=== PATIENT | male | born 1985 | race Caucasian/White ===

== ENCOUNTER 2023-10-12 09:45 | Inpatient (IN) | payer OTHER ==
[2023-10-12] MEDS ORDERED: ACETAMINOPHEN 500 MG TAB ONE (10:20)
[2023-10-12] MEDS ORDERED: PIPERACIL/TAZO 3.375 GM VIAL IV ONE (10:21)
[2023-10-12] MEDS ORDERED: NA CHLORIDE 0.9% 250 ML ONE (10:22)
[2023-10-12 10:34] LABS: Absolute Lymphocytes (CBC) 0.8 K/uL (0.7-4.9); Lymphocytes % 4.2 % (15.3-44.8); MCV 72.1 fL (80-100); MPV 8.1 fL (7.6-11.3); Platelets 266 thou/uL (152-406); RBC Red Blood Cell Count 4.58 M/uL (4.33-5.43)
[2023-10-12 10:40] LABS: Protime INR 1.54
[2023-10-12 11:03] LABS: Albumin 2.4 g/dL (3.4-5.0); Bilirubin Total 1.1 mg/dL (0.2-1.0); Potassium 3.7 mEq/L (3.5-5.1); Protein, Total 7.9 g/dL (6.4-8.2)
[2023-10-12 11:09] LABS: Platelet Estimate ADEQ
[2023-10-12 11:10] LABS: Blood Morphology Comment NOTED (NOT SEEN); Dohle Bodies PRESENT
--- NOTE | 2023-10-12 11:17 | EDPHYS ---
Physician Documentation [facility] Name: Ray Shi Age: 38 yrs Sex: Male : 1985 Arrival Date: 10/12/2023 Time: 09:45 Bed 2 Private MD: ED Physician Agustin Grover HPI: 10/12 10:03 This 38 yrs old Male presents to ER via EMS with complaints of leg ec2 redness/swelling. 10:03 Patient with history of morbid obesity arrives today due to concern for left lower ec2 extremity redness. Patient with history of lymphedema, states that he has had some redness to the area. No fevers or chills, no nausea or vomiting. Patient with some shortness of breath.. Historical: - Allergies: 09:53 No Known Allergies; rs5 - PMHx: 09:53 lymphadenopathy; rs5 - PSHx: 09:53 None; rs5 - Immunization history:: Adult Immunizations unknown. - Social history:: Smoking status: unknown. ROS: 10:03 Constitutional: as per hpi ec2 Exam: 10:03 Constitutional: GEN: NAD, morbidly obese Head: atraumatic Eyes: EOMI Ears: External ec2 ears are normal. CV: tachycardia LUNGS: no respiratory distress ABD: non-distended SKIN: Left anterior tibia with weeping serous fluid, erythema noted, warmth noted. MSK: no evidence of trauma NEURO: moves all extremities equally Vital Signs: 09:50 BP 127 / 95; Pulse 120; Resp 19; Temp 98.6; Pulse Ox 99% on R/A; rs5 09:50 BP 141 / 82; Pulse 122; Resp 37 S; Temp 102.8(O); Pulse Ox 93% on R/A; rs5 09:58 Weight 275.4 kg; em1 10:01 BP 130 / 79; Pulse 120; Resp 33; Pulse Ox 98% on 2 lpm NC; rs5 11:02 BP 133 / 81; Pulse 125; Resp 34; Temp 100.1(O); Pulse Ox 99% on 2 lpm NC; rs5 12:10 BP 137 / 85; Pulse 113; Resp 30; Pulse Ox 99% on 2 lpm NC; rs5 13:15 BP 140 / 89; Pulse 110; Resp 31; Pulse Ox 98% on 2 lpm NC; rs5 MDM: 09:53 Patient medically screened. kb 10:03 ED course: Patient arrives today for evaluation of lower extremity redness and ec2 swelling. Examination remarkable for tachycardic individuals otherwise in no acute distress. Will obtain lab work, septic work-up and empirically treat with antibiotics. Currently considering cellulitis, lymphedema, volume overload.. 11:14 ED course: Initially to consider doing BiPAP given the patient's marked obesity and his ec2 volume status however patient is saturating well and appears to be at his baseline. Will defer BiPAP at this time however will reconsider in the future if symptoms worsen.. 11:15 ED course: CBC is remarkable for leukocytosis with a WBC of 19, does have hyponatremia ec2 with a sodium of 124, creatinine of 1.37, elevated lactic at 2.8 and BNP elevation at 1700. . 11:15 ED course: In total presentation consistent with sepsis secondary to cellulitis with ec2 associated renal dysfunction, lactic acidosis and hyponatremia. Will admit to the hospital for continued management. I discussed case with hospitalist, pending admission.. 11:15 Data reviewed: vital signs. ec2 10/12 10:03 Order name: Blood Culture Adult (2) ec2 10/12 10:03 Order name: CBC with Diff; Complete Time: ec2 10/12 10:03 Order name: CMP; Complete Time: ec2 10/12 10:03 Order name: Lactate w/ 2H reflex if indic.; Complete Time: ec2 10/12 10:03 Order name: Protime (+inr); Complete Time: ec2 10/12 10:03 Order name: Ptt, Activated; Complete Time: ec2 10/12 10:03 Order name: BNP; Complete Time: : ec2 10/12 11:10 Order name: Manual Differential; Complete Time: EDMS 10/12 12:12 Order name: Lactate w/ 2H reflex if indic. EDMS 10/12 12:12 Order name: Basic Metabolic Panel EDMS 10/12 12:12 Order name: Basic Metabolic Panel EDMS 10/12 12:12 Order name: Basic Metabolic Panel EDMN 10/12 12:12 Order name: Basic Metabolic Panel EDMN 10/12 12:12 Order name: Basic Metabolic Panel EDMS 10/12 12:12 Order name: Basic Metabolic Panel EDMS 10/12 12:12 Order name: CBC with Automated Diff EDMS 10/12 12:12 Order name: CBC with Automated Diff EDMS 10/12 12:12 Order name: CBC with Automated Diff EDMS 10/12 12:12 Order name: CBC with Automated Diff EDMS 10/12 12:12 Order name: CBC with Automated Diff EDMS 10/12 12:12 Order name: CBC with Automated Diff EDMS 10/12 12:12 Order name: Lipid Profile EDMS 10/12 12:12 Order name: Lipid Profile EDMS 10/12 12:12 Order name: Magnesium EDMS 10/12 12:12 Order name: Magnesium EDMS 10/12 12:12 Order name: Magnesium EDMS 10/12 12:12 Order name: Magnesium EDMS 10/12 12:12 Order name: Magnesium EDMS 10/12 12:12 Order name: Magnesium EDMS 10/12 12:12 Order name: Phosphorus EDMS 10/12 12:12 Order name: Phosphorus EDMS 10/12 12:12 Order name: Phosphorus EDMS 10/12 12:12 Order name: Phosphorus EDMS 10/12 12:12 Order name: Phosphorus EDMS 10/12 12:12 Order name: Phosphorus EDMS 10/12 13:50 Order name: Lactate Sepsis 2 HR Follow-up; Complete Time: 14:52 EDMS 10/12 10:03 Order name: Chest Single View XRAY; Complete Time: 11:55 ec2 10/12 10:03 Order name: EKG; Complete Time: 10:04 ec2 10/12 12:12 Order name: Physical Therapy Consult EDMS 10/12 10:03 Order name: Cardiac monitoring; Complete Time: 12:12 ec2 10/12 10:03 Order name: EKG - Nurse/Tech; Complete Time: 12:12 ec2 10/12 10:03 Order name: IV Saline Lock - Large Bore; Complete Time: 12:12 ec2 10/12 10:03 Order name: Labs collected and sent; Complete Time: 12:12 ec2 10/12 10:03 Order name: O2 Per Protocol; Complete Time: 12:11 ec2 10/12 10:03 Order name: O2 Sat Monitoring; Complete Time: 12:11 ec2 10/12 10:03 Order name: Vital Signs; Complete Time: 12:11 ec2 Administered Medications: 10:05 Drug: Acetaminophen PO 1000 mg PO once Route: PO; rs5 11:51 Follow up: Response: No adverse reaction; Pain is decreased rs5 10:30 Drug: Piperacillin-Tazobactam IVPB 3.375 grams IVPB once over 60 mins; (mix in NS 100 rs5 mL) Route: IVPB; Infused Over: 60 mins; Site: right antecubital; 10:45 Follow up: Response: No adverse reaction rs5 11:50 Follow up: IV Status: Completed infusion rs5 10:40 Drug: diphenhydrAMINE IVP 50 mg IVP once Route: IVP; Site: right antecubital; rs5 11:20 Follow up: Response: No adverse reaction rs5 11:01 Drug: Ibuprofen PO 800 mg PO once Route: PO; rs5 11:51 Follow up: Response: No adverse reaction; Pain is decreased rs5 11:02 Drug: hydrOXYzine PO 50 mg PO once Route: PO; rs5 12:01 Follow up: Response: No adverse reaction; Anxiety decreased rs5 11:40 Drug: NS 0.9% IV 1000 ml IV at 1 bolus Per protocol; 1000 mL bolus Route: IV; Rate: 1 rs5 bolus; Site: right antecubital; 11:52 Follow up: Response: No adverse reaction rs5 11:50 Drug: vancoMYCIN IVPB 2 grams IVPB at calculated rate once Route: IVPB; Rate: rs5 calculated rate; Site: right antecubital; 12:05 Follow up: Response: No adverse reaction rs5 12:57 Follow up: IV Status: Completed infusion rs5 Disposition Summary: 10/12/23 11:16 Hospitalization Ordered Notes: Hospitalization Status: Inpatient Admission ec2 Provider: Rodolfo Cavazos ec2 [facility] Condition: Stable ec2 Problem: an acute exacerbation ec2 Symptoms: have improved ec2 Bed/Room Type: Standard ec2 Room Assignment: 403(10/12/23 13:47) bd Diagnosis - Cellulitis of left lower limb ec2 - Sepsis, unspecified organism ec2 - Hypo-osmolality and hyponatremia ec2 Forms: - Medication Reconciliation Form ec2 - SBAR form ec2 - Leadership Thank You Letter ec2 Critical care time excluding procedures: 11:15 Critical care time: Bedside Care: 30 minutes, Consultation: 5 minutes. Total time: 35 ec2 minutes Signatures: Dispatcher [employer] Delores Maki, OZ FELIPE-Noemi No Ricky, RN RN rs5 Agustin Grover MD MD ec2 Corrections: (The following items were deleted from the chart) 10:05 10:03 Constitutional: GEN: NAD, morbidly obese Head: atraumatic Eyes: EOMI Ears: ec2 External ears are normal. CV: regular rate LUNGS: no respiratory distress ABD: non-distended SKIN: Left anterior tibia with weeping serous fluid, erythema noted, warmth noted. MSK: no evidence of trauma NEURO: moves all extremities equally ec2 12:12 10:03 Accucheck ordered. ec2 rs5 13:47 11:16 ec2 bd
--- NOTE | 2023-10-12 11:17 | ER ---
Nurse's Notes [facility] Name: Ray Shi Age: 38 yrs Sex: Male : 1985 Arrival Date: 10/12/2023 Time: 09:45 Bed 2 Private MD: Diagnosis: Cellulitis of left lower limb;Sepsis, unspecified organism;Hypo-osmolality and hyponatremia Presentation: 10/12 09:50 Chief complaint: EMS states: Pt has lymphadenopathy and he's been having pain to his rs5 left lower extremity. Coronavirus screen: At this time, the client does not indicate any symptoms associated with coronavirus-19. Ebola Screen: No symptoms or risks identified at this time. Initial Sepsis Screen: Does the patient meet any 2 criteria?. Initial Sepsis Screen: Does the patient meet any 2 criteria? HR > 90 bpm. Yes Does the patient have a suspected source of infection? No. Patient's initial sepsis screen is negative. Risk Assessment: Do you want to hurt yourself or someone else? Patient reports no desire to harm self or others. Onset of symptoms was October 12, 2023. 09:50 Method Of Arrival: EMS: [facility] rs5 09:50 Acuity: HOWARD 3 rs5 Historical: - Allergies: 09:53 No Known Allergies; rs5 - PMHx: 09:53 lymphadenopathy; rs5 - PSHx: 09:53 None; rs5 - Immunization history:: Adult Immunizations unknown. - Social history:: Smoking status: unknown. Screenin:50 [facility] ED Fall Risk Assessment (Adult) History of falling in the last 3 months, rs5 including since admission No falls in past 3 months (0 pts) Confusion or Disorientation No (0 pts) Intoxicated or Sedated No (0 pts) Impaired Gait Yes (1 pt) Mobility Assist Device Used Yes (1 pt) Altered Elimination No (0 pt) Score/Fall Risk Level 0 - 2 = Low Risk Oriented to surroundings, Maintained a safe environment, Educated pt \T\ family on fall prevention, incl call for assistance when getting out of bed, Assessed \T\ reinforced patient's understanding of fall precautions. Abuse screen: Denies threats or abuse. Nutritional screening: No deficits noted. Tuberculosis screening: No symptoms or risk factors identified. Assessment: 09:50 General: Appears distressed, uncomfortable, Behavior is cooperative, anxious. Pain: rs5 Complains of pain in left lower extremity Pain does not radiate. Pain currently is 8 out of 10 on a pain scale. Quality of pain is described as aching, Pain began 2-3 days ago. Is continuous. Neuro: Level of Consciousness is awake, alert, obeys commands, Oriented to person, place, time, situation. Cardiovascular: Heart tones S1 S2 present Rhythm is sinus tachycardia. Respiratory: Reports shortness of breath Airway is patent Respiratory effort is even, labored, Respiratory pattern is symmetrical, hyperventilation Breath sounds are clear bilaterally. GI: Abdomen is non-distended, obese, Bowel sounds present X 4 quads. Abd is soft and non tender X 4 quads. : No signs and/or symptoms were reported regarding the genitourinary system. EENT: No signs and/or symptoms were reported regarding the EENT system. Derm: Skin is intact, Skin is pink, warm \T\ dry. Musculoskeletal: Range of motion: limited in lower extremities bilat Swelling present in lower extremitites bilat Redness noted to lower extremities bilat. 09:52 Reassessment: Pt placed on 2L nasal cannula, o2 sat 99%%. rs5 11:42 Reassessment: notified ER MD of temp 102.8 , cool compress given to pt. iw 12:05 Pain: Complains of pain in left lower extremity Pain does not radiate. Pain currently rs5 is 4 out of 10 on a pain scale. Quality of pain is described as aching, Is continuous. 12:05 Cardiovascular: Denies chest pain, Rhythm is sinus tachycardia. Respiratory: rs5 Respiratory effort is even, labored, Respiratory pattern is symmetrical, hyperventilation. 13:10 Reassessment: Patient and/or family updated on plan of care and expected duration. Pain rs5 level reassessed. Patient is alert, oriented x 3, equal unlabored respirations, skin warm/dry/pink. Vital Signs: 09:50 BP 127 / 95; Pulse 120; Resp 19; Temp 98.6; Pulse Ox 99% on R/A; rs5 09:50 BP 141 / 82; Pulse 122; Resp 37 S; Temp 102.8(O); Pulse Ox 93% on R/A; rs5 09:58 Weight 275.4 kg; em1 10:01 BP 130 / 79; Pulse 120; Resp 33; Pulse Ox 98% on 2 lpm NC; rs5 11:02 BP 133 / 81; Pulse 125; Resp 34; Temp 100.1(O); Pulse Ox 99% on 2 lpm NC; rs5 12:10 BP 137 / 85; Pulse 113; Resp 30; Pulse Ox 99% on 2 lpm NC; rs5 13:15 BP 140 / 89; Pulse 110; Resp 31; Pulse Ox 98% on 2 lpm NC; rs5 ED Course: 09:49 Patient arrived in ED. bd 09:50 Arun Sam, RN is Primary Nurse. rs5 09:50 Patient has correct armband on for positive identification. Bed in low position. Call rs5 light in reach. Side rails up X2. 09:52 Delores Smiley FNP-C is [facility]. ec2 09:53 Triage completed. rs5 09:53 Agustin Grover MD is Attending Physician. kb 10:13 ordered bariatric bed confirmation .................[id number].. bd 11:00 Notified ED physician of a critical lab result(s). lactate 2.8. ll1 11:16 Rodolfo Cavazos is Hospitalizing Provider. ec2 11:29 Chest Single View XRAY In Process Unspecified. EDMS 15:20 No provider procedures requiring assistance completed. Patient admitted, IV remains in rs5 place. Administered Medications: 10:05 Drug: Acetaminophen PO 1000 mg PO once Route: PO; rs5 11:51 Follow up: Response: No adverse reaction; Pain is decreased rs5 10:30 Drug: Piperacillin-Tazobactam IVPB 3.375 grams IVPB once over 60 mins; (mix in NS 100 rs5 mL) Route: IVPB; Infused Over: 60 mins; Site: right antecubital; 10:45 Follow up: Response: No adverse reaction rs5 11:50 Follow up: IV Status: Completed infusion rs5 10:40 Drug: diphenhydrAMINE IVP 50 mg IVP once Route: IVP; Site: right antecubital; rs5 11:20 Follow up: Response: No adverse reaction rs5 11:01 Drug: Ibuprofen PO 800 mg PO once Route: PO; rs5 11:51 Follow up: Response: No adverse reaction; Pain is decreased rs5 11:02 Drug: hydrOXYzine PO 50 mg PO once Route: PO; rs5 12:01 Follow up: Response: No adverse reaction; Anxiety decreased rs5 11:40 Drug: NS 0.9% IV 1000 ml IV at 1 bolus Per protocol; 1000 mL bolus Route: IV; Rate: 1 rs5 bolus; Site: right antecubital; 11:52 Follow up: Response: No adverse reaction rs5 11:50 Drug: vancoMYCIN IVPB 2 grams IVPB at calculated rate once Route: IVPB; Rate: rs5 calculated rate; Site: right antecubital; 12:05 Follow up: Response: No adverse reaction rs5 12:57 Follow up: IV Status: Completed infusion rs5 Medication: 15:20 VIS not applicable for this client. rs5 Outcome: 11:16 Decision to Hospitalize by Provider. ec2 15:20 Admitted to Med/surg accompanied by nurse, rs5 15:20 Condition: stable 15:20 Discharge instructions given to patient, family, 15:25 Patient left the ED. mb9 Signatures: Dispatcher [employer] EDDelores Sue, DESTINEE-Anna EQUIPMENT OPERATOR/LABORER/SUPERVISOR-CkNoemi Kent Irene, Cedrick Mohamud RN em1 Priyanka Burkett RN RN ll1 Savita Gallo RN RN mb9 Arun Sam RN RN rs5 Agustin Grover MD MD ec2 Corrections: (The following items were deleted from the chart) 09:54 09:50 Chief complaint: EMS states: Pt has lymphadenopathy and he's having pain to his rs5 lower extremities bilat rs5 10:02 09:50 Initial Sepsis Screen: Does the patient meet any 2 criteria? No. Patient's rs5 initial sepsis screen is negative. Does the patient have a suspected source of infection? No. Patient's initial sepsis screen is negative. rs5 10:02 09:50 BP 127 / 95; Pulse 92bpm; Resp 19bpm; Pulse Ox 99% RA; Temp 98.6F; rs5 rs5 14:18 09:50 Cardiovascular: Heart tones S1 S2 present Rhythm is regular rs5 rs5 14:19 11:42 BP 141 / 82; Pulse 122bpm; Resp 26bpm; Spontaneous; Temp 102.8F Oral; iw rs5 14:20 09:50 Respiratory: Airway is patent Respiratory effort is even, labored, Respiratory rs5 pattern is symmetrical, hyperventilation Breath sounds are clear bilaterally. rs5 14:21 09:52 Reassessment: Pt placed on 2L nasal cannula for o2 sat of 93%. rs5 rs5 14:22 11:42 BP 141 / 82; Pulse 122bpm; Resp 33bpm; Spontaneous; Temp 102.8F Oral; rs5 rs5 14:22 14:18 BP 130 / 79; Pulse 120bpm; Resp 33bpm; Pulse Ox 98% 2 lpm Nasal Cannula; rs5 rs5 14:23 09:50 BP 141 / 82; Pulse 122bpm; Resp 33bpm; Spontaneous; Pulse Ox 93% RA; Temp 102.8F rs5 Oral; rs5 14:25 13:02 Reassessment: Temp 100.2 notified ER , cool compress provided per pt request. rs5 rs5 19:29 15:20 IV discontinued, intact, bleeding controlled, No redness/swelling at site. rs5 Pressure dressing applied, rs5
[2023-10-12] MEDS ORDERED: hydrOXYzine HCL 25 MG TAB ONE (11:18)
[2023-10-12] MEDS ORDERED: DIPHENHYDRAMINE 50 MG/ML VIAL ONE (11:36)
--- NOTE | 2023-10-12 11:49 | RAD REPORT ---
EXAM DESCRIPTION: Tati Single View10/12/2023 11:27 am CLINICAL HISTORY: SOB COMPARISON: No comparisons TECHNIQUE: Portable AP view of the chest. FINDINGS: The lungs are clear. Decreased penetration somewhat limits evaluation. No pneumothorax or effusion. The cardiomediastinal contours are unremarkable. IMPRESSION: No acute cardiopulmonary process.
[2023-10-12] MEDS ORDERED: PIPER TAZO 3.375 GM in NA CHLORIDE 0.9% 100 ML IV SCH (12:00)
[2023-10-12] MEDS ORDERED: NICOTINE 14 MG/PAT TD PRN (12:11)
--- NOTE | 2023-10-12 12:24 | P.HP ---
Certification for Inpatient Patient admitted to: Inpatient With expected LOS: >2 Midnights Patient will require the following post-hospital care: None Practitioner: I am a practitioner with admitting privileges, knowledge of patient current condition, hospital course, and medical plan of care. Services: Services provided to patient in accordance with Admission requirements found in Title 42 Section 412.3 of the Code of Federal Regulations Patient History Date of Service: 10/12/23 Reason for admission: sepsis 2/2 cellulitis of left lower extremity History of Present Illness: Ray Wells is a 38-year-old male with past medical history lymphadenopathy, GERD, smoking abuse, morbid obesity who presents to the ED with complaints of increased lower extremity edema overnight. Patient reports on Tuesday not feeling well and assuming it was bad pizza he ate. He continued to not feel well the last few days, was able to drink but not eat. This morning his lower extremities increased in size and redness. Redness was noted earlier this week but has increased since Tuesday. Ray's mother usually cares for his legs using Neosporin and wrapping with an Marty bandage daily. Initial vital BP 127 / 95; Pulse 120; Resp 19; Temp 98.6; Pulse Ox 99% on R/A. Chest x-ray reports "The lungs are clear. Decreased penetration somewhat limits evaluation. No pneumothorax or effusion. The cardiomediastinal contours are unremarkable". Significant labs WBC 19, lactic acid 2.8, sodium 129, potassium 3.7, serum glucose 102, BNP 1669. On examination left anterior tibia is weeping with serous fluid, erythema, edema, and warmth noted. He is SOB today, which is not usual for him. Ray will be admitted to hospitalist service for further evaluation and treatment of sepsis secondary to cellulitis of the left lower extremity. Allergies No Known Allergies Allergy (Unverified 10/12/23 12:39) Home Medications: NK [No Home Meds] 10/12/23 Review of Systems General: Weakness, Malaise Eyes: Unremarkable ENT: Unremarkable Respiratory: Shortness of Breath Cardiovascular: Unremarkable Gastrointestinal: Unremarkable Genitourinary: Unremarkable Musculoskeletal: Other (edema BLE) Physical Examination - Physical Exam General: Alert, In no apparent distress, Oriented x3, Moderate distress HEENT: Atraumatic, Normocephalic, PERRLA Neck: Supple, 2+ carotid pulse no bruit, JVD not distended Respiratory: Clear to auscultation bilaterally Musculoskeletal: Erythema (left anterior tibia), Warmth (left anterior tibia) Integumentary: Skin breakdown (BLE), Tenderness/swelling (BLE), Erythema (BLE) Neurological: Normal speech, Normal tone - Studies Laboratory Data (last 24 hrs) 10/12/23 10/12/23 10/12/23 10:22 10:22 10:22 WBC 19.00 H Hgb 10.5 L Hct 33.0 L Plt Count 266 PT 16.9 H INR 1.54 APTT 35.9 Sodium 124 L Potassium 3.7 BUN 17 Creatinine 1.37 H Glucose 102 Total Bilirubin 1.1 H AST 64 H ALT 27 Alkaline Phosphatase 57 Assessment and Plan - Plan Assessment and Plan Sepsis secondary to cellulitis of the left lower extremity in a patient with h/o lymphadenopathy Anasarca Zosyn given in ED, will continue Blood cultures taken in the ED, results pending Lasix BID, monitor Creatinine Lactic acid 2.8, repeat pending, WBC 19 strict I and O daily weight Consult wound care Hyponatremia Na 124, BNP 1669 Likely d/t anasarca Lasix will monitor in AM labs MARTINA BUN/Creatinine 17/1.37 monitor Morbid obesity d/t sedentary lifestyle and calorie surplus PT consulted H/o GERD PRN Tums Full code DVT ppx: heparin LOS 3-4 days - Advance Directives Does patient have a Living Will: No Does patient have a Durable POA for Healthcare: No
[2023-10-12] MEDS: FUROSEMIDE 40 MG/4 ML VIAL IV SCH ×2 (14:00→16:43)
[2023-10-12] MEDS: PIPER TAZO 3.375 GM in NA CHLORIDE 0.9% 100 ML IV SCH (16:42)
[2023-10-12] MEDS: HEPARIN 5000 UNIT/ML 1 ML VIAL SQ SCH (16:42)
[2023-10-12] MEDS ORDERED: FUROSEMIDE 40 MG/4 ML VIAL IV SCH (17:00)
[2023-10-13] MEDS: PIPER TAZO 3.375 GM in NA CHLORIDE 0.9% 100 ML IV SCH ×2 (02:00→09:12)
[2023-10-13] MEDS: HEPARIN 5000 UNIT/ML 1 ML VIAL SQ SCH ×3 (02:00→16:44)
[2023-10-13 04:20] LABS: Absolute Lymphocytes (CBC) 0.6 K/uL (0.7-4.9); Hematocrit 30.2 % (39.6-49.0); Lymphocytes % 3.3 % (15.3-44.8); MPV 8.9 fL (7.6-11.3); Platelets 225 thou/uL (152-406); RBC Red Blood Cell Count 4.14 M/uL (4.33-5.43)
[2023-10-13 04:23] LABS: Magnesium 2.2 mg/dL (1.6-2.4); Phosphorus 3.8 mg/dL (2.5-4.9); Potassium 3.8 mEq/L (3.5-5.1)
[2023-10-13] MEDS ORDERED: MORPHINE 4 MG/ML SYR IV ONE (05:36)
[2023-10-13] MEDS ORDERED: POTASSIUM 25 MEQ EFFERV TAB PO ONE (09:00)
[2023-10-13] MEDS: FUROSEMIDE 40 MG/4 ML VIAL IV SCH (09:13)
[2023-10-13] MEDS ORDERED: MAGNESIUM SULFATE 1 gm IVPB 1 GM/100 ML BAG IV ONE (09:21)
--- NOTE | 2023-10-13 09:23 | P.PN ---
Subjective Date of Service: 10/13/23 Chief Complaint: sepsis 2/2 cellulitis of left lower extremity Subjective: No new changes, Working w/ PT HPI 10/12: Ray Shi is a 38-year-old male with past medical history lymphadenopathy, GERD, smoking abuse, morbid obesity who presents to the ED with complaints of increased lower extremity edema overnight. Patient reports on Tuesday not feeling well and assuming it was bad pizza he ate. He continued to not feel well the last few days, was able to drink but not eat. This morning his lower extremities increased in size and redness. Redness was noted earlier this week but has increased since Tuesday. Ray's mother usually cares for his legs using Neosporin and wrapping with an Marty bandage daily. Initial vital BP 127 / 95; Pulse 120; Resp 19; Temp 98.6; Pulse Ox 99% on R/A. Chest x-ray reports "The lungs are clear. Decreased penetration somewhat limits evaluation. No pneumothorax or effusion. The cardiomediastinal contours are unremarkable". Significant labs WBC 19, lactic acid 2.8, sodium 129, potassium 3.7, serum glucose 102, BNP 1669. On examination left anterior tibia is weeping with serous fluid, erythema, edema, and warmth noted. He is SOB today, which is not usual for him. Ray will be admitted to hospitalist service for further evaluation and treatment of sepsis secondary to cellulitis of the left lower extremity. 10/13: Ray is AAOx3, He is remains SOB with expiratory wheezes, on 3 LNC. Left leg dressing shows drainage. PT ordered, cefepime started, Lasix gtt with albumin, wound care consulted. Physical Examination - Vital Signs Temperature: 96.9 F Blood Pressure: 138/65 Pulse: 101 Respirations: 16 Pulse Ox (%): 94 - Studies Laboratory Data (last 24 hrs) 10/12/23 10/12/23 10/12/23 10:22 10:22 10:22 WBC 19.00 H Hgb 10.5 L Hct 33.0 L Plt Count 266 PT 16.9 H INR 1.54 APTT 35.9 Sodium 124 L Potassium 3.7 BUN 17 Creatinine 1.37 H Glucose 102 Total Bilirubin 1.1 H AST 64 H ALT 27 Alkaline Phosphatase 57 Assessment And Plan - Plan Physical Exam General: Alert, In no apparent distress, Oriented x3, Moderate distress HEENT: Atraumatic, Normocephalic, PERRLA Neck: Supple, 2+ carotid pulse no bruit, JVD not distended Respiratory: expiratory wheezing, Musculoskeletal: Erythema (left anterior tibia), Warmth (left anterior tibia), left leg dressing drainage present Integumentary: Skin breakdown (BLE), Tenderness/swelling (BLE), Erythema (BLE) Neurological: Normal speech, Normal tone Problems Sepsis secondary to cellulitis of the left lower extremity in a patient with h/o lymphadenopathy Anasarca Bacteremia Hyponatremia MARTINA Morbid obesity d/t sedentary lifestyle and calorie surplus Plan Sepsis secondary to cellulitis of the left lower extremity in a patient with h/o lymphadenopathy Anasarca Bacteremia Zosyn (10/12) and cefepime started (10/13) Blood cultures taken in the ED, Positive in all four Lasix gtt with albumin Lactic acid 2.8, repeat 2.2, WBC 17.20 strict I and O daily weight Consult wound care Bilateral upper lobe wheezing Duonebs Q6h Hyponatremia Initial labs: Na 124, BNP 1669 Na 132 Likely d/t anasarca Lasix gtt will monitor in AM labs MARTINA BUN/Creatinine 20/1.33- improved monitor Morbid obesity d/t sedentary lifestyle and calorie surplus PT consulted H/o GERD PRN Tums Full code DVT ppx: heparin LOS 3-4 days Discharge Plan: Home Plan to discharge in: 72 Hours Time Spent Managing PTS Care (In Minutes): 35
--- NOTE | 2023-10-13 10:45 | EKG ---
Test Date: 2023-10-12 Test Time: 10:32:33 Supervisor Compounding And Finishing: ROSALEE MEASUREMENT RESULTS: Intervals: Rate: 125 RI: 120 QRSD: 104 QT: 324 QTc: 467 [place]: P: 24 RI: 120 QRS: 55 T: 41 INTERPRETIVE STATEMENTS: Sinus tachycardia Otherwise normal ECG Compared to ECG 10/12/2023 10:32:06 Fusion complex(es) no longer present Electronically Signed On 10-13-23 10:42:20 JUTE BAG CUTTING MACHINE OPERATOR by Ciro Gillis
--- NOTE | 2023-10-13 10:45 | EKG ---
Test Date: 2023-10-12 Test Time: 10:32:06 Conductor Sleeping Car: ROSALEE MEASUREMENT RESULTS: Intervals: Rate: 125 MD: 126 QRSD: 94 QT: 334 QTc: 482 [place]ia: P: 34 MD: 126 QRS: 60 T: 52 INTERPRETIVE STATEMENTS: Sinus tachycardia with fusion complexes Otherwise normal ECG No previous ECG available for comparison Electronically Signed On 10-13-23 10:42:22 TRUST ADMINISTRATOR by Ciro Gillis
[2023-10-13] MEDS ORDERED: CEFEPIME 2 GM in NA CHLORIDE 0.9% 100 ML IV SCH (12:00)
[2023-10-13] MEDS: ALBUMIN HUMAN 25% 12.5 GM, FUROSEMIDE 100 MG in NA CHLORIDE 0.9% 40 ML IV SCH ×3 (12:20→21:56)
[2023-10-13] MEDS: CEFEPIME 2 GM in NA CHLORIDE 0.9% 100 ML IV SCH (16:43)
[2023-10-13] MEDS: VANCOMYCIN 2 GM in NA CHLORIDE 0.9% 500 ML IVPB SCH (16:44)
[2023-10-13] MEDS ORDERED: FUROSEMIDE 100 MG in NA CHLORIDE 0.9% 90 ML IV SCH (19:00)
[2023-10-13] MEDS: ALBUTEROL 2.5 MG/3 ML NEB SOL NEB SCH (20:30)
[2023-10-14] MEDS ORDERED: NA CHLORIDE 0.9% 100 ML ONE (00:53)
[2023-10-14] MEDS: HEPARIN 5000 UNIT/ML 1 ML VIAL SQ SCH ×3 (00:55→16:25)
[2023-10-14] MEDS: CEFEPIME 2 GM in NA CHLORIDE 0.9% 100 ML IV SCH ×2 (00:55→09:50)
[2023-10-14 01:18] LABS: Absolute Lymphocytes (CBC) 1.1 K/uL (0.7-4.9); Hematocrit 27.7 % (39.6-49.0); Lymphocytes % 5.2 % (15.3-44.8); MCV 71.8 fL (80-100); MPV 8.5 fL (7.6-11.3); Platelets 221 thou/uL (152-406); RBC Red Blood Cell Count 3.86 M/uL (4.33-5.43)
[2023-10-14] MEDS: ALBUMIN HUMAN 25% 12.5 GM, FUROSEMIDE 100 MG in NA CHLORIDE 0.9% 40 ML IV SCH ×5 (02:01→23:16)
[2023-10-14] MEDS: ALBUTEROL 2.5 MG/3 ML NEB SOL NEB SCH ×4 (02:20→20:53)
[2023-10-14 02:30] LABS: Potassium 3.2 mEq/L (3.5-5.1)
[2023-10-14 02:32] LABS: Magnesium 2.1; Phosphorus 2.5 mg/dL (2.5-4.9)
[2023-10-14] MEDS ORDERED: POTASSIUM CL SA 10 MEQ TAB PO ONE (09:00)
[2023-10-14] MEDS: POTASS/SODIUM PHOSPHATE 1 PKT POWD.PACK PO SCH ×2 (09:43→09:47)
[2023-10-14] MEDS: VANCOMYCIN 2 GM in NA CHLORIDE 0.9% 500 ML IVPB SCH (11:04)
--- NOTE | 2023-10-14 13:35 | P.CNS ---
Date of Consult: 10/14/23 Reason for Consult: MARTINA Requesting Physician: guzman silveira Chief Complaint: sepsis 2/2 cellulitis of left lower extremity History of Present Illness: 38M w/ PMHx of morbid obesity, chronic cig smoker, chronic BLE edema, & GERD, who p/w increased BLE edema & erythema, admitted for sepsis 2/2 LLE cellulitis. He is referred to Nephrology for MARTINA. SC 1.4 on adm, improved to 1.1 today. He is c/o SOB. He reports he stopped smoking a few days ago. He is on lasix gtt & receiving abx. He also has mod hyponatremia. Allergies No Known Allergies Allergy (Unverified 10/12/23 12:39) Home Medications: NK [No Home Meds] 10/12/23 - Past Medical/Surgical History Diabetic: No -: left foot sx - Social History Smoking Status: Unknown if ever smoked Alcohol use: No CD- Drugs: No Caffeine use: No Place of Residence: Home Review of Systems General: Weakness Eyes: Unremarkable ENT: Unremarkable Respiratory: Shortness of Breath, SOB with Excertion Cardiovascular: Unremarkable Gastrointestinal: Unremarkable Genitourinary: Unremarkable Musculoskeletal: Pedal edema, Other (LLE erythema) Integumentary: Other (LLE erythema) Neurological: Unremarkable Lymphatics: Unremarkable Physical Examination Temp Pulse Resp BP Pulse Ox 98.0 F 104 H 20 130/55 L 90 L 10/14/23 12:00 10/14/23 12:00 10/14/23 12:00 10/14/23 12:00 10/14/23 12:00 General: Other (Appears as his stated age) HEENT: Atraumatic, Normocephalic Neck: Supple Respiratory: Other (symmetric chest expansion) Cardiovascular: No rubs, No murmurs Gastrointestinal: Soft and benign, No rebound Musculoskeletal: No clubbing, Swelling Integumentary: Erythema (LLE) Neurological: Normal speech, Normal tone Urinary: Other (no bladder distention) External genitalia: Deferred Rectal: Deferred Conclusions/Impression: # MARTINA 2/2 sepsis/ATN SCr 1.4 on adm, improved to 1.1 today Urinalysi +pyuria, no proteinuria, no hematuria +Mild proteinuria 1.0g on random UPCR CPK not sig elevated, no rhabdo Girard po fluid intake Cont lasix gtt # Sepsis 2/2 LLE cellulitis +Strep bacteremia IV abx F/u cultures BLE wound care & multilayer compression therapy # Chronic BLE edema likely 2/2 obesity-related R-sided cardiac + pulmo issues + BLE lymphatic/venous stasis + dependent edema, aggravated by hypolabuminemia BNP sig elevated, f/u TTE BLE multilayer compression Lasix gtt as above # Acute respi failure O2 suppl prn Unable to get chest CT done d/t body habitus BNP sig elevated, f/u TTE Lasix gtt as above F/u ABG # Hyponatremia 2/2 high ADH state from dyspnea & BLE discomfort + renal dysfxn Tolvaptan po today Lasix gtt as above Dc fluid restriction Solid food intake tid Avoid salt tabs, avoid Na-containing IVF K repletion prn to keep serum K at 4.0 or higher Avoid hypoMg # Vitamin D deficiency Start cholecalciferol 5000 international units by mouth daily # Secondary hyperparathyroidism D3 repletion as above # Anemia Monitor CBC
[2023-10-14] MEDS ORDERED: TOLVAPTAN 15 MG TABLET PO ONE ×2 (15:00)
[2023-10-14] MEDS: CEFTRIAXONE 2,000 MG in NA CHLORIDE 0.9% 50 ML IV SCH (15:40)
--- NOTE | 2023-10-14 17:10 | P.PN ---
Subjective Date of Service: 10/14/23 Chief Complaint: sepsis 2/2 cellulitis of left lower extremity Patient is complaining of shortness of breath. He is maintained on 2 L oxygen by nasal canula. He states that he has been evaluated for obstructive sleep apnea. Physical Examination - Vital Signs Temperature: 99.1 F Blood Pressure: 147/66 Pulse: 109 Respirations: 20 Pulse Ox (%): 94 Assessment And Plan - Plan Physical Exam General: Alert, In no apparent distress, Oriented x3. Morbidly obese HEENT: Oxygen by nasal cannula Neck: Supple, 2+ carotid pulse no bruit, JVD not distended Respiratory: expiratory wheezing, diminished breath sounds bilaterally Musculoskeletal: Erythema and tender legs, worse on the left, bilateral lower extremity lymphedema-entire legs. Integumentary: Skin breakdown (BLE), bilateral lower extremity venous stasis dermatitis and ulcers. Neurological: Normal speech, Normal tone Diagnosis Sepsis secondary to cellulitis of the left lower extremity in a patient with h/o lymphadenopathy Anasarca Bacteremia Hyponatremia MARTINA Morbid obesity d/t sedentary lifestyle and calorie surplus Plan Sepsis secondary to cellulitis of the left lower extremity Anasarca Strep bacteremia Scale down IV antibiotics to IV Rocephin 4 out of 4 bottles growing gram-positive cocci(Strept). Final culture is pending. Repeat blood cultures today. Bilateral lower extremity lymphedema/bilateral lower extremity edema/obstructive sleep apnea Bilateral venous stasis dermatitis and venous stasis ulcer Acute respiratory failure with hypoxia Continue Lasix gtt with albumin Nephrology input appreciated. Patient was started on tolvaptan given hyponatremia by nephrology Monitor intake and output Daily weight as possible Continue local wound care. Supplemental oxygen as needed Trial of BiPAP during sleep. Bilateral upper lobe wheezing/acute respiratory failure with hypoxia Duonebs Q6h Supplemental oxygen as needed Hyponatremia Hypervolemic hyponatremia Nephrology input appreciated Patient is Lasix gtt Patient started on tolvaptan given anasarca with hyponatremia. Monitor BMP. MARTINA Resolved. Continue to monitor renal function Morbid obesity d/t sedentary lifestyle and calorie surplus PT consulted. Activity as tolerated H/o GERD PRN Tums Full code DVT ppx: heparin Discharge Plan: Home
[2023-10-14 17:19] LABS: UR PROTEIN 27.7 mg/dL (<11.9); Urine Protein/Creatinine Ratio 0.99 ratio (<0.15)
[2023-10-14 17:33] LABS: Specific Gravity 1.008 (1.005-1.030); Urine Bacteria <20 /HPF (<20); Urine Bilirubin NEGATIVE (Negative); Urine Blood Negative (Negative); Urine Clarity Turbid (Clear); Urine Color Light-Yellow (Yellow); Urine Crystals Unidentified Few /HPF (None Seen); Urine Glucose NEGATIVE (Negative); Urine Mucus Slight /HPF (None Seen); Urine Protein NEGATIVE (Negative); Urine RBC <5 /HPF (None Seen); Urine Urobilinogen Normal (Normal)
[2023-10-14] MEDS: ACETAMINOPHEN 325 MG TABLET PO PRN (23:17)
[2023-10-15] MEDS: HEPARIN 5000 UNIT/ML 1 ML VIAL SQ SCH ×3 (00:48→16:22)
[2023-10-15] MEDS: ALBUTEROL 2.5 MG/3 ML NEB SOL NEB SCH ×4 (02:18→20:24)
[2023-10-15 03:24] LABS: Absolute Lymphocytes (CBC) 1.3 K/uL (0.7-4.9); Hematocrit 27.9 % (39.6-49.0); Lymphocytes % 6.2 % (15.3-44.8); MPV 8.4 fL (7.6-11.3); Platelets 265 thou/uL (152-406); RBC Red Blood Cell Count 3.82 M/uL (4.33-5.43)
[2023-10-15] MEDS: ACETAMINOPHEN 325 MG TABLET PO PRN (03:31)
[2023-10-15] MEDS: ALBUMIN HUMAN 25% 12.5 GM, FUROSEMIDE 100 MG in NA CHLORIDE 0.9% 40 ML IV SCH ×4 (03:31→15:26)
[2023-10-15 03:53] LABS: Phosphorus 3.3 mg/dL (2.5-4.9); Potassium 2.7 mEq/L (3.5-5.1)
[2023-10-15] MEDS ORDERED: NA CHLORIDE 0.9% 500 ML ONE (08:21)
[2023-10-15] MEDS ORDERED: TOLVAPTAN 15 MG TABLET PO ONE (09:00)
[2023-10-15] MEDS ORDERED: KCL 20 MEQ/100 mL IVPB 20 MEQ/100 ML BAG IV SCH (09:00)
[2023-10-15] MEDS: VITAMIN D 5,000 UNIT CAP PO SCH (09:14)
[2023-10-15] MEDS: KCL 20 MEQ/100 mL IVPB 20 MEQ/100 ML BAG IV SCH ×2 (11:56→14:41)
[2023-10-15 12:08] LABS: Blood O2 Saturation 89.9 % (92-98.5)
--- NOTE | 2023-10-15 15:37 | P.PN ---
Subjective Date of Service: 10/15/23 Chief Complaint: sepsis 2/2 cellulitis of left lower extremity 38M w/ PMHx of morbid obesity, chronic cig smoker, chronic BLE edema, & GERD, who p/w increased BLE edema & erythema, admitted for sepsis 2/2 LLE cellulitis. He is referred to Nephrology for MARTINA. SC 1.4 on adm, improved to 1.1 today. Today high UO will reduce lasix drip rate advised to reduce fluid intake Physical exam General: Awake, NAD , obese HEENT: Atraumatic, Normocephalic Neck: Supple, no elevated JVD Respiratory: CTAB Cardiovascular: No rubs, No murmurs Gastrointestinal: Soft and benign, Non-distended Ext : edema A/P # MARTINA 2/2 sepsis/ATN resolved SCr 1.4 on adm, Urinalysi +pyuria, no proteinuria, no hematuria +Mild proteinuria 1.0g on random UPCR Cont lasix gtt # Sepsis 2/2 LLE cellulitis +Strep bacteremia IV abx F/u cultures BLE wound care & multilayer compression therapy # Chronic BLE edema likely 2/2 obesity-related R-sided cardiac + BLE lymphatic/venous stasis + hypolabuminemia BLE multilayer compression Lasix gtt will rduce rate # Acute respi failure O2 suppl prn Unable to get chest CT done d/t body habitus Lasix gtt as above # hyprvolemic Hyponatremia S.p tolvaptan ont lasix reduce fluid intake Lasix gtt as above K repletion prn to keep serum K at 4.0 or higher # Vitamin D deficiency Start cholecalciferol 5000 international units by mouth daily # Anemia Monitor CBC Physical Examination - Vital Signs Temperature: 98.9 F Blood Pressure: 113/69 Pulse: 91 Respirations: 16 Pulse Ox (%): 90 - Studies Microbiology Data (last 24 hrs): 10/12/23 10:22 Blood - Blood Aerobic Blood Culture - Final Streptococcus Pyogenes 10/12/23 10:22 Blood - Blood Blood Culture Gram Stain - Final 10/12/23 10:22 Blood - Blood Anaerobic Blood Culture - Final Streptococcus Pyogenes 10/12/23 10:22 Blood - Blood Gram Stain - Final 10/12/23 10:50 Blood - Blood Aerobic Blood Culture - Final Streptococcus Pyogenes 10/12/23 10:50 Blood - Blood Blood Culture Gram Stain - Final 10/12/23 10:50 Blood - Blood Anaerobic Blood Culture - Final Streptococcus Pyogenes 10/12/23 10:50 Blood - Blood Gram Stain - Final
[2023-10-15] MEDS: CEFTRIAXONE 2,000 MG in NA CHLORIDE 0.9% 50 ML IV SCH (16:22)
--- NOTE | 2023-10-15 17:58 | P.PN ---
Subjective Date of Service: 10/15/23 Chief Complaint: sepsis 2/2 cellulitis of left lower extremity Patient is complaining of shortness of breath. He also reports constipation. He has been on high flow oxygen since last night. Lower extremity edema is improving. Physical Examination - Vital Signs Temperature: 97.6 F Blood Pressure: 126/68 Pulse: 98 Respirations: 14 Pulse Ox (%): 93 - Studies Microbiology Data (last 24 hrs): 10/12/23 10:22 Blood - Blood Aerobic Blood Culture - Final Streptococcus Pyogenes 10/12/23 10:22 Blood - Blood Blood Culture Gram Stain - Final 10/12/23 10:22 Blood - Blood Anaerobic Blood Culture - Final Streptococcus Pyogenes 10/12/23 10:22 Blood - Blood Gram Stain - Final 10/12/23 10:50 Blood - Blood Aerobic Blood Culture - Final Streptococcus Pyogenes 10/12/23 10:50 Blood - Blood Blood Culture Gram Stain - Final 10/12/23 10:50 Blood - Blood Anaerobic Blood Culture - Final Streptococcus Pyogenes 10/12/23 10:50 Blood - Blood Gram Stain - Final Assessment And Plan - Plan Physical Exam General: Alert, In no apparent distress, Oriented x3. Morbidly obese HEENT: High flow oxygen. Neck: Supple, 2+ carotid pulse no bruit, JVD not distended Respiratory: expiratory wheezing, diminished breath sounds bilaterally Musculoskeletal: Erythema and tender legs, worse on the left, bilateral lower extremity lymphedema-entire legs. Integumentary: Skin breakdown (BLE), bilateral lower extremity venous stasis dermatitis and ulcers. Neurological: Normal speech, Normal tone Diagnosis Sepsis secondary to cellulitis of the left lower extremity in a patient with h/o lymphadenopathy Anasarca Bacteremia Hyponatremia MARTINA Morbid obesity d/t sedentary lifestyle and calorie surplus Plan Sepsis secondary to cellulitis of the left lower extremity Anasarca Strept pyogenes bacteremia Continue IV Rocephin Add IV clindamycin to decrease erythema/erythromelalgia. Repeat blood culture shows no growth Bilateral lower extremity lymphedema/bilateral lower extremity edema/obstructive sleep apnea Bilateral venous stasis dermatitis and venous stasis ulcer Acute respiratory failure with hypoxia Continue Lasix gtt with albumin Nephrology is following. Patient was started on tolvaptan given hyponatremia by nephrology Monitor intake and output Daily weight as possible Continue local wound care. Supplemental oxygen as needed Trial of BiPAP during sleep. Bilateral upper lobe wheezing/acute respiratory failure with hypoxia Duonebs Q6h Supplemental oxygen as needed Hyponatremia Hypervolemic hyponatremia Nephrology is following Patient is on Lasix gtt Patient started on tolvaptan given anasarca with hyponatremia. Monitor BMP. MARTINA Resolved. Continue to monitor renal function Morbid obesity d/t sedentary lifestyle and calorie surplus Continue PT Bed mobility encouraged Activity as tolerated H/o GERD PRN Tums Functional constipation Laxatives and stool softeners. Full code DVT ppx: heparin Discharge Plan: Home
[2023-10-15] MEDS: CLINDAMYCIN INJ 600 MG in NA CHLORIDE 0.9% 50 ML IV SCH (18:00)
[2023-10-15] MEDS ORDERED: CLINDAMYCIN 600MG/D5W 50 ML IV ONE (18:41)
[2023-10-15] MEDS ORDERED: MAGNESIUM CITRATE 300 ML BOT PO SCH (19:00)
[2023-10-16] MEDS: CLINDAMYCIN INJ 600 MG in NA CHLORIDE 0.9% 50 ML IV SCH ×4
[2023-10-16] MEDS: ALBUTEROL 2.5 MG/3 ML NEB SOL NEB SCH ×4 (02:14→20:00)
[2023-10-16] MEDS: ALBUMIN HUMAN 25% 12.5 GM, FUROSEMIDE 100 MG in NA CHLORIDE 0.9% 40 ML IV SCH (02:17)
[2023-10-16] MEDS: HEPARIN 5000 UNIT/ML 1 ML VIAL SQ SCH ×3 (02:18→16:13)
[2023-10-16] MEDS ORDERED: CLINDAMYCIN 600MG/D5W 100 ML IV ONE (02:23)
[2023-10-16] MEDS ORDERED: CLINDAMYCIN 600MG/D5W 50 ML IV SCH (03:00)
[2023-10-16] MEDS: POLYETHYL GLY 3350 17 GM/DOSE PO SCH (09:00)
[2023-10-16] MEDS: CLINDAMYCIN 600MG/D5W 50 ML IV SCH ×3 (09:21→21:08)
[2023-10-16] MEDS: VITAMIN D 5,000 UNIT CAP PO SCH (09:21)
[2023-10-16 10:33] LABS: Absolute Lymphocytes (CBC) 1.5 K/uL (0.7-4.9); Hematocrit 29.5 % (39.6-49.0); Lymphocytes % 8.2 % (15.3-44.8); MCV 73.7 fL (80-100); MPV 8.5 fL (7.6-11.3); Platelets 289 thou/uL (152-406); RBC Red Blood Cell Count 4.01 M/uL (4.33-5.43)
--- NOTE | 2023-10-16 10:36 | P.PN ---
Subjective Date of Service: 10/16/23 Chief Complaint: sepsis 2/2 cellulitis of left lower extremity 38M w/ PMHx of morbid obesity, chronic cig smoker, chronic BLE edema, & GERD, who p/w increased BLE edema & erythema, admitted for sepsis 2/2 LLE cellulitis. He is referred to Nephrology for MARTINA. SC 1.4 on adm, improved to 1.1 today. Today high UO will change lasix to IVO and add aldctone Aggressive potassium replacement advised to reduce fluid intake Physical exam General: Awake, NAD , obese HEENT: Atraumatic, Normocephalic Neck: Supple, no elevated JVD Respiratory: CTAB Cardiovascular: No rubs, No murmurs Gastrointestinal: Soft and benign, Non-distended Ext : edema A/P # MARTINA 2/2 sepsis/ATN resolved SCr 1.4 on adm, Urinalysi +pyuria, no proteinuria, no hematuria +Mild proteinuria 1.0g on random UPCR Cont lasix # Sepsis 2/2 LLE cellulitis +Strep bacteremia IV abx F/u cultures BLE wound care & multilayer compression therapy # Chronic BLE edema likely 2/2 obesity-related R-sided cardiac + BLE lymphatic/venous stasis + hypolabuminemia BLE multilayer compression will change lasix to IVP and add aldctone # Acute respi failure O2 suppl prn Unable to get chest CT done d/t body habitus Lasix gtt as above #Hypokalemia due to disuretics will add aldactone replace as needed Monitor Mg level # hyprvolemic Hyponatremia S.p tolvaptan x1 ont lasix reduce fluid intake Lasix gtt as above K repletion prn to keep serum K at 4.0 or higher # Vitamin D deficiency Start cholecalciferol 5000 international units by mouth daily # Anemia Monitor CBC Physical Examination - Vital Signs Temperature: 99.8 F Blood Pressure: 138/62 Pulse: 95 Respirations: 16 Pulse Ox (%): 90 - Studies Microbiology Data (last 24 hrs): 10/12/23 10:22 Blood - Blood Aerobic Blood Culture - Final Streptococcus Pyogenes 10/12/23 10:22 Blood - Blood Blood Culture Gram Stain - Final 10/12/23 10:22 Blood - Blood Anaerobic Blood Culture - Final Streptococcus Pyogenes 10/12/23 10:22 Blood - Blood Gram Stain - Final 10/12/23 10:50 Blood - Blood Aerobic Blood Culture - Final Streptococcus Pyogenes 10/12/23 10:50 Blood - Blood Blood Culture Gram Stain - Final 10/12/23 10:50 Blood - Blood Anaerobic Blood Culture - Final Streptococcus Pyogenes 10/12/23 10:50 Blood - Blood Gram Stain - Final
[2023-10-16 10:55] LABS: Magnesium 2.3 mg/dL (1.6-2.4)
[2023-10-16] MEDS ORDERED: ALBUMIN HUMAN 25% 12.5 GM, FUROSEMIDE 100 MG in NA CHLORIDE 0.9% 40 ML IV SCH (12:00)
[2023-10-16] MEDS ORDERED: POTASSIUM CL SA 10 MEQ TAB PO ONE (14:00)
[2023-10-16] MEDS: POTASS/SODIUM PHOSPHATE 1 PKT POWD.PACK PO SCH (14:16)
[2023-10-16] MEDS: FUROSEMIDE 40 MG/4 ML VIAL IV SCH ×2 (14:16→21:09)
[2023-10-16] MEDS: CEFTRIAXONE 2,000 MG in NA CHLORIDE 0.9% 50 ML IV SCH (16:13)
[2023-10-16] MEDS: SPIRONOLACTONE 25 MG TABLET PO SCH (21:08)
[2023-10-17] MEDS: HEPARIN 5000 UNIT/ML 1 ML VIAL SQ SCH ×3 (01:59→18:29)
[2023-10-17] MEDS: ALBUTEROL 2.5 MG/3 ML NEB SOL NEB SCH ×4 (02:00→19:57)
[2023-10-17] MEDS: CLINDAMYCIN 600MG/D5W 50 ML IV SCH ×4 (02:00→21:57)
[2023-10-17 04:13] LABS: Absolute Lymphocytes (CBC) 2.1 K/uL (0.7-4.9); Hematocrit 29.7 % (39.6-49.0); Lymphocytes % 9.8 % (15.3-44.8); MCV 73.6 fL (80-100); MPV 8.4 fL (7.6-11.3); Platelets 419 thou/uL (152-406); RBC Red Blood Cell Count 4.03 M/uL (4.33-5.43)
[2023-10-17 05:09] LABS: Magnesium 2.4 mg/dL (1.6-2.4); Phosphorus 3.1 mg/dL (2.5-4.9); Potassium 3.4 mEq/L (3.5-5.1)
[2023-10-17 05:59] LABS: Blood Morphology Comment NOT SEEN (NOT SEEN); Platelet Estimate ADEQ
[2023-10-17] MEDS ORDERED: POTASSIUM CL SA 10 MEQ TAB PO ONE (09:00)
[2023-10-17] MEDS: POLYETHYL GLY 3350 17 GM/DOSE PO SCH ×2 (09:00→09:15)
[2023-10-17] MEDS: SPIRONOLACTONE 25 MG TABLET PO SCH ×2 (09:14→21:53)
[2023-10-17] MEDS: VITAMIN D 5,000 UNIT CAP PO SCH (09:14)
[2023-10-17] MEDS: ACETAMINOPHEN 325 MG TABLET PO PRN ×2 (09:14→21:53)
[2023-10-17] MEDS: FUROSEMIDE 40 MG/4 ML VIAL IV SCH ×3 (09:16→21:56)
[2023-10-17] MEDS: CEFTRIAXONE 2,000 MG in NA CHLORIDE 0.9% 50 ML IV SCH (15:02)
--- NOTE | 2023-10-17 19:56 | P.PN ---
Subjective Date of Service: 10/16/23 Chief Complaint: sepsis 2/2 cellulitis of left lower extremity No major changes from yesterday. Good urine output Patient currently tolerating oxygen by nasal cannula. Lower extremity edema is improving. Physical Examination - Vital Signs Temperature: 97.1 F Blood Pressure: 127/70 Pulse: 91 Respirations: 16 Pulse Ox (%): 94 Assessment And Plan - Plan Physical Exam General: Alert, In no apparent distress, Oriented x3. Morbidly obese HEENT: High flow oxygen. Neck: Supple, 2+ carotid pulse no bruit, JVD not distended Respiratory: expiratory wheezing, diminished breath sounds bilaterally Musculoskeletal: Erythema and bilateral lower extremity lymphedema/edema improving. Integumentary: Skin breakdown (BLE), bilateral lower extremity venous stasis dermatitis and ulcers. Neurological: Normal speech, Normal tone Diagnosis Sepsis secondary to cellulitis of the left lower extremity in a patient with h/o lymphadenopathy Anasarca Bacteremia Hyponatremia MARTINA Morbid obesity d/t sedentary lifestyle and calorie surplus Plan Sepsis secondary to cellulitis of the left lower extremity Anasarca Strept pyogenes bacteremia/sepsis Continue IV Rocephin and IV clindamycin Repeat blood culture shows no growth Monitor CBC to follow leukocytosis. Bilateral lower extremity lymphedema/bilateral lower extremity edema/obstructive sleep apnea Bilateral venous stasis dermatitis and venous stasis ulcer Acute respiratory failure with hypoxia Continue Lasix gtt with albumin Nephrology is following and adjusting Lasix and albumin dose. Patient was started on tolvaptan given hyponatremia by nephrology Monitor intake and output Daily weight as possible Continue local wound care. Supplemental oxygen as needed Trial of BiPAP during sleep. Bilateral upper lobe wheezing/acute respiratory failure with hypoxia Duonebs Q6h Supplemental oxygen as needed Hyponatremia Hypervolemic hyponatremia Nephrology is following Patient is on Lasix gtt Patient started on tolvaptan given anasarca with hyponatremia. Hyponatremia significantly improved. Continue to monitor BMP. MARTINA Resolved. Continue to monitor renal function Morbid obesity d/t sedentary lifestyle and calorie surplus Continue PT Bed mobility encouraged Activity as tolerated H/o GERD PRN Tums Functional constipation Laxatives and stool softeners. Full code DVT ppx: heparin Discharge Plan: Home
--- NOTE | 2023-10-17 19:58 | P.PN ---
Subjective Date of Service: 10/17/23 Chief Complaint: sepsis 2/2 cellulitis of left lower extremity Patient continues to diurese significantly. Patient currently tolerating oxygen by nasal cannula. Physical Examination - Vital Signs Temperature: 97.1 F Blood Pressure: 127/70 Pulse: 91 Respirations: 16 Pulse Ox (%): 94 Assessment And Plan - Plan Physical Exam General: Alert, In no apparent distress, Oriented x3. HEENT: Oxygen by nasal cannula. Respiratory: expiratory wheezing, diminished breath sounds bilaterally Musculoskeletal: Erythema and bilateral lower extremity lymphedema/edema improving. Integumentary: Skin breakdown (BLE), bilateral lower extremity venous stasis dermatitis and ulcers. Diagnosis Sepsis secondary to cellulitis of the left lower extremity in a patient with h/o lymphadenopathy Anasarca Bacteremia Hyponatremia MARTINA Morbid obesity d/t sedentary lifestyle and calorie surplus Plan Sepsis secondary to cellulitis of the left lower extremity Anasarca Strept pyogenes bacteremia/sepsis Continue IV Rocephin and IV clindamycin Repeat blood culture shows no growth Monitor CBC to follow leukocytosis. Bilateral lower extremity lymphedema/bilateral lower extremity edema/obstructive sleep apnea Bilateral venous stasis dermatitis and venous stasis ulcer Acute respiratory failure with hypoxia Continue Lasix gtt with albumin Nephrology is following and adjusting Lasix and albumin dose. Patient completed multiple dose of tolvaptan. Aldactone added by nephrology. Low-salt diet and fluid restriction advised. Daily weight as possible Continue local wound care. Supplemental oxygen as needed Trial of BiPAP during sleep. Increase activity as tolerated. Bilateral upper lobe wheezing/acute respiratory failure with hypoxia Duonebs Q6h Supplemental oxygen as needed Hyponatremia Hypervolemic hyponatremia Nephrology is following Patient is on Lasix gtt Patient started on tolvaptan given anasarca with hyponatremia. Hyponatremia significantly improved. Continue to monitor BMP. MARTINA Resolved. Continue to monitor renal function Morbid obesity d/t sedentary lifestyle and calorie surplus He was able to sit at the edge of the bed today with PT. Continue PT Activity as tolerated H/o GERD PRN Tums Functional constipation Laxatives and stool softeners. Full code DVT ppx: heparin Discharge Plan: Home
[2023-10-17] MEDS ORDERED: HYDROCODONE/APAP 5/325 MG TAB PO PRN (19:59)
[2023-10-17 22:38] LABS: Arterial Blood Carboxyhemoglob 1.6 % (0-1.5); Blood Gas Oxyhemoglobin 91.6 % (94-97)
--- NOTE | 2023-10-17 23:51 | PN ---
Date of Progress Note: 10/17/2023 Chief Complaint: Acute kidney injury. Subjective: The patient is admitted to the hospital because of sepsis, cellulitis of the left lower extremity. The patient is a 38-year-old man with morbid obesity, chronic cigarette smoker, chronic b ilateral edema, anasarca, GERD. The patient presented to the hospital because of left lower extremit y cellulitis and sepsis. Nephrology consultation was requested for acute kidney injury. Serum creat inine level was up to 1.4. Patient remains fluid overloaded. He was found to have hyponatremia. He is treated with antibiotics and Lasix. Review of Systems: Denies complaints. Physical Examination: Lungs: Coarse breath sound bilaterally. Heart: S1, S2. Abdomen: Obese, soft. Extremities: Anasarca, erythema, left lower extremity. Impression And Plan: 1.Acute kidney injury secondary to sepsis and acute tubular necrosis. Serum creatinine gradually im proving. Urinalysis was positive for pyuria, but negative for proteinuria, negative for hematuria. Mild to moderate proteinuria present. UPCR is 1.0 g according to random specimen. CPK is not signif icantly elevated. There is no evidence of rhabdomyolysis. Patient will continue Lasix drip for anas arca. 2.Sepsis secondary to left lower cellulitis and streptococcal bacteremia. Continue IV antibiotics a nd monitor culture, bilateral lower extremity wound care, multilayer compression therapy as per Prima ry Team. 3.Chronic bilateral edema secondary to obesity. Right-sided cardiac catheterization will be conside red for this patient when he is stable. Continue Lasix drip and continue bilateral multilayer compre ssion. Monitor BNP. Monitor fluid bolus. 4.Acute respiratory failure. BNP is elevated. Follow up TTE. Continue Lasix drip. Follow up ABG. 5.Hyponatremia secondary to high ADH state from dyspnea, bilateral lower extremity discomfort and re nal dysfunction. Patient received tolvaptan. Monitor electrolytes closely and continue tolvaptan ac cording to lab results. Discontinue fluid restriction when patient is on tolvaptan. Continue Lasix drip. 6.Hypokalemia and hypomagnesemia. Continue potassium and magnesium replacement. EB/MODL Voice ID: [id number] Report ID: [id number]
--- NOTE | 2023-10-18 01:47 | P.PN ---
Date of Service: 10/17/23 Nurse and RT called to assess the patient as patient has been sleeping all day and wakes up in after repeated calls. Patient is seen and assessed. Patient is waking up only to repeated calls, answering questions with yes or no. Bilateral air entry is good on auscultation, not in any acute distress at this. Patient's mom concerned about his excessive sleep, vital signs stable ABG pH 7.37, PCO2 78, PO2 79, base excess 15, bicarb 41.3 oand O2 sat 97!. SPO2 93% on nasal cannula oxygen. Discussed the case with Dr. Alicea, put the pat ient on BiPAP after explaining to the patient and to the mother. Ordered thyroid studies, cortisol level, ammonia level. Hold all the suggestions and the pain medications at this time. <Su Ann - Last Filed: 10/18/23 01:40> Agree with above findings. Last sentence was supposed to mention sedation; I did suggest that patient hold all sedatives and pain medication. On review of the chart, patient was also found to have a very low anion gap. This is most likely related to severe hypoalbuminemia. Have asked nurses to repeat labs in the morning. Could be related to other etiologies which need to be further evaluated. Nephrology is seeing the patient. Pt with proteinuria. Patient may need protein electrophoresis as well. May need further urine studies. Patient is requiring BiPAP support. Patient's pH is normal with a chronic respiratory acidosis with metabolic compensation. Patient also with iron deficiency. Patient will need further evaluation. <Lori Alicea - Last Filed: 10/19/23 00:34>
[2023-10-18] MEDS: ALBUTEROL 2.5 MG/3 ML NEB SOL NEB SCH ×5 (01:57→19:00)
[2023-10-18] MEDS: CLINDAMYCIN 600MG/D5W 50 ML IV SCH ×4 (02:41→21:33)
[2023-10-18] MEDS: HEPARIN 5000 UNIT/ML 1 ML VIAL SQ SCH ×3 (02:45→16:27)
[2023-10-18 03:43] LABS: Hematocrit 29.9 % (39.6-49.0); Lymphocytes % 10.7 % (15.3-44.8); MCV 74.1 fL (80-100); Platelets 426 thou/uL (152-406); RBC Red Blood Cell Count 4.03 M/uL (4.33-5.43)
[2023-10-18 03:44] LABS: Protime INR 1.19
[2023-10-18 04:10] LABS: Albumin 1.8 g/dL (3.4-5.0); Bilirubin Direct 0.3 mg/dL (0-0.2); Bilirubin Total 0.5 mg/dL (0.2-1.0); Magnesium 2.4 mg/dL (1.6-2.4); Potassium 3.9 mEq/L (3.5-5.1); Protein, Total 7.6 g/dL (6.4-8.2); Thyroid Stimulating Hormone 3.48 uIU/mL (0.358-3.740)
[2023-10-18 05:27] LABS: Blood O2 Saturation 94.7 % (92-98.5)
[2023-10-18 05:28] LABS: Arterial Blood Carboxyhemoglob 1.8 % (0-1.5)
--- NOTE | 2023-10-18 07:58 | RAD REPORT ---
EXAM DESCRIPTION: RAD - Chest Single View - 10/18/2023 4:40 am CLINICAL HISTORY: O2 use, exp wheeze, lethargy Chest pain. COMPARISON: Chest Single View dated 10/12/2023 FINDINGS: Portable technique limits examination quality. Mild bilateral pulmonary opacities are present suggesting mild pulmonary edema. The heart is mildly p rominent. No displaced fractures.
[2023-10-18] MEDS: POLYETHYL GLY 3350 17 GM/DOSE PO SCH (09:00)
[2023-10-18] MEDS: SPIRONOLACTONE 25 MG TABLET PO SCH ×2 (09:53→21:34)
[2023-10-18] MEDS: FUROSEMIDE 40 MG/4 ML VIAL IV SCH (09:54)
[2023-10-18] MEDS: VITAMIN D 5,000 UNIT CAP PO SCH (09:54)
--- NOTE | 2023-10-18 11:26 | ECHO ---
HEIGHT: 5 ft 9 in WEIGHT: 559 lb 0 oz DATE OF STUDY: 10/17/[address]: Rodolfo Cavazos MD 2-DIMENSIONAL: YES M.MODE: YES DOPPLER: YES COLOR FLOW: YES TDS: YES PORTABLE: YES DEFINITY: BUBBLE STUDY: DIAGNOSIS: ANARSACA CARDIAC HISTORY: CATHERIZATION: NO SURGERY: NO PROSTHETIC VALVE: NO PACEMAKER: NO MEASUREMENTS (cm) DIASTOLIC (NORMALS) SYSTOLIC (NORMALS) IVSd 1.3 (0.6-1.2) LA Diam 4.1 (1.9-4.0) LVEF 65% LVIDd 4.7 (3.5-5.7) LVIDs 3.0 (2.0-3.5) %FS 36% LVPWd 1.5 (0.6-1.2) Ao Diam 3.0 (2.0-3.7) 2 DIMENSIONAL ASSESSMENT: RIGHT ATRIUM: LEFT ATRIUM: RIGHT VENTRICLE: LEFT VENTRICLE: TRICUSPID VALVE: MITRAL VALVE: PULMONIC VALVE: AORTIC VALVE: PERICARDIAL EFFUSION: AORTIC ROOT: LEFT VENTRICULAR WALL MOTION: DOPPLER/COLOR FLOW: COMMENTS: 1. VERY POOR STUDY WITH POOR WINDOWS 2. OVERALL LEFT VENTRICULAR EJECTION FRACTION APPEARS NORMAL. RECOMMEND CONTRAST ECHOCARDIOGRAM TECHNOLOGIST: MARIAM NIÑO/ MICKY WEINER
--- NOTE | 2023-10-18 12:12 | P.PN ---
Date of Service: 10/18/23 Subjective: reports never had sleep study / no CPAP at home reports waking up gasping for air at home occasionally, +doesn't feel as rested after sleeping, +lethargic feels swelling in legs slowly improving placed on BiPAP overnight; remains on BiPAP for now afebrile ROS: 10 point ROS as noted above, otherwise negative Physical Exam: GEN: Alert, oriented, NAD HEENT: Normal conjunctiva, sclera anicteric CV: Regular rate and rhythm, 2+ bilateral lower extremity edema , L>R Pulm: Nonlabored respirations on BiPAP, diminished at bases b/l, +expiratory wheezes ABD: Soft, nontender, nondistended Integumentary: Skin breakdown (BLE), bilateral lower extremity venous stasis dermatitis and ulcers with dressing in place Neuro: Normal speech, normal affect vitals reviewed Problem List: Sepsis secondary to LLE cellulitis Streptococcus pyogenes bacteremia Anasarca Bilateral lower extremity lymphedema Bilateral venous stasis dermatitis and venous stasis ulcer Acute respiratory failure with hypoxia and hypercapnia suspected undiagnosed Obstructive sleep apnea Hyponatremia MARTINA, resolved Morbid obesity h/o GERD Functional constipation Sepsis secondary to LLE cellulitis Streptococcus pyogenes bacteremia Anasarca Bilateral lower extremity lymphedema Bilateral venous stasis dermatitis and venous stasis ulcer blood cx (10/12): Streptococcus Pyogenes blood cx (10/14): NGTD Continue IV Rocephin / clindamycin (10/14-) afebrile, leukocytosis improving Nephrology is following continue spironolactone PO BID Patient completed multiple dose of tolvaptan. Low-salt diet, fluid restriction, daily weights advised. Continue local wound care. Acute respiratory failure with hypoxia / hypercapnia suspected Obstructive sleep apnea reports never had sleep study / no CPAP at home sleeping habits consistent with obstructive sleep apnea Pulm consulted 10/18 Started diamox Duonebs Q6h Placed on BiPAP overnight repeat ABG 10/18 with some improvement Increase activity as tolerated. Hyponatremia MARTINA, resolved Hypervolemic hyponatremia Nephrology is following previously on Lasix gtt; continue spironolactone Patient started on tolvaptan given anasarca with hyponatremia. Hyponatremia significantly improved. Continue to monitor BMP. Continue to monitor renal function Morbid obesity Continue PT - able to sit at the edge of the bed yesterday Activity as tolerated h/o GERD PRN Tums Functional constipation continue Laxatives and stool softeners VTE: heparin sq Code: Full Dispo: Home, 1-2 days Pending further improvement
--- NOTE | 2023-10-18 12:37 | P.CNS ---
Date of Consult: 10/18/23 Reason for Consult: Respiratory failure Chief Complaint: Respiratory failure on BiPAP morbid obesity History of Present Illness: Patient is 38 years of age history of morbid obesity lymphedema currently unresponsive on a BiPAP machine since he was admitted with hypoxic hypercapnic respiratory failure not have a CPAP at home also has positive blood cultures Allergies No Known Allergies Allergy (Unverified 10/12/23 12:39) Home Medications: NK [No Home Meds] 10/12/23 - Past Medical/Surgical History Diabetic: No -: left foot sx - Social History Smoking Status: Unknown if ever smoked Alcohol use: No CD- Drugs: No Caffeine use: No Place of Residence: Home Review of Systems is unable to be obtained Physical Examination Temp Pulse Resp BP Pulse Ox 96.6 F L 85 18 140/77 93 10/18/23 04:00 10/18/23 07:50 10/18/23 04:00 10/18/23 04:00 10/18/23 07:50 General: Unresponsive, Obese, Other Respiratory: Clear to auscultation bilaterally, Expiratory wheezes Cardiovascular: Regular rate/rhythm, Edema Gastrointestinal: Normal bowel sounds, Soft and benign - Problems (1) Respiratory failure Current Visit: Yes Status: Acute Plan: Patient is 38 years of age morbid obesity admitted with hypoxic hypercapnic respiratory failure patient is bacteremic elevated bicarbonate patient has cardiomegaly patient is on Lasix add Diamox evaluate for noninvasive ventilator patient has normal renal function avoid Lasix elevate his bicarbonate patient has chronic respiratory failure and will benefit from home noninvasive venti lator to prevent readmissions probably also need a backup rate Qualifiers: Chronicity: chronic (2) Morbid (severe) obesity with alveolar hypoventilation Current Visit: Yes Status: Acute Plan: PT has morbid obesity with alvolar hypoventilation, Chronic hypercapnea with compensatory high bicarbonate
[2023-10-18] MEDS: ACETAZOLAMIDE 500 MG IV IV SCH ×2 (13:24→21:45)
[2023-10-18] MEDS ORDERED: WATER FOR INJ,STERILE 10 ML ONE ×2 (13:36→20:08)
[2023-10-18] MEDS: SOD FERRIC GLUC COMPLX/SUCROSE 125 MG in NA CHLORIDE 0.9% 100 ML IV SCH (15:22)
[2023-10-18] MEDS: ACETAMINOPHEN 325 MG TABLET PO PRN ×2 (15:23→21:33)
[2023-10-18] MEDS: CEFTRIAXONE 2,000 MG in NA CHLORIDE 0.9% 50 ML IV SCH (16:26)
--- NOTE | 2023-10-18 23:19 | PN ---
Date of Progress Note: 10/18/2023 Chief Complaint: Acute kidney injury. Subjective: The patient is admitted to the hospital because of sepsis and cellulitis of the left lower extremity. The patient is a 38-year-old man with morbid obesity, chronic cigarette smoker, chronic bilateral lymphedema, anasarca, GERD. The patient presented to the hospital because of left lower extremity cellulitis and sepsis. The patient remained fluid overloaded. He was found to have hyponatremia. He is treated with antibiotics and Lasix. Sodium level has improved gradually. Review of Systems: Denies chest pain, palpitation. Physical Examination: Lungs: Coarse breath sounds bilaterally. Heart: S1, S2. Abdomen: Soft, obese. Extremities: Erythema. Dressing in place. Severe edema present. Impression And Plan: 1. Acute kidney injury secondary to sepsis, patient developed prerenal azotemia and nonoliguric acute tubular necrosis. Serum creatinine level gradually was improving, although the patient remains fluid overloaded and IV Bumex is started. 2. The patient has proteinuria, which goes along with morbid obesity with possible focal segmental glomerulosclerosis. The patient has history of moderate proteinuria. Continue to monitor. At this point, the patient is not a candidate for KRYSTYNA inhibitor. 3. Sepsis secondary to left lower cellulitis and streptococcal bacteremia. Continue IV antibiotics. Monitor blood culture and monitor electrolytes. The patient will continue bilateral lower extremity wound care and multilayer compression therapy as was recommended by Primary team. 4. Chronic bilateral edema secondary to obesity. Right-sided cardiac catheterization is scheduled. The patient is awaiting workup. 5. Acute respiratory failure. BNP is elevated. Follow up on TTE. Continue diuretics. 6. Hypokalemia and hypomagnesemia. Magnesium replacement as needed. Monitor potassium level. EB/MODL Voice ID: [id number] Report ID: [id number] MALIK
[2023-10-19] MEDS: ALBUTEROL 2.5 MG/3 ML NEB SOL NEB SCH ×2 (02:02→08:11)
[2023-10-19] MEDS: CLINDAMYCIN 600MG/D5W 50 ML IV SCH ×2 (03:59→09:06)
[2023-10-19] MEDS: ACETAMINOPHEN 325 MG TABLET PO PRN (04:11)
[2023-10-19] MEDS: ALBUMIN HUMAN 25% 50 ML IV SCH ×2 (05:19→17:20)
[2023-10-19 06:58] LABS: Hematocrit 30.1 % (39.6-49.0); Lymphocytes % 12.6 % (15.3-44.8); MPV 7.9 fL (7.6-11.3); Platelets 456 thou/uL (152-406); RBC Red Blood Cell Count 4.02 M/uL (4.33-5.43)
[2023-10-19 07:13] LABS: Magnesium 2.7 mg/dL (1.6-2.4); Potassium 4.2 mEq/L (3.5-5.1)
[2023-10-19] MEDS: BUMETANIDE 1 MG/4 ML VIAL IV SCH ×3 (08:00→20:05)
[2023-10-19] MEDS: POLYETHYL GLY 3350 17 GM/DOSE PO SCH (08:57)
[2023-10-19] MEDS: SPIRONOLACTONE 25 MG TABLET PO SCH ×2 (09:06→20:04)
[2023-10-19] MEDS: ACETAZOLAMIDE 500 MG IV IV SCH (09:06)
[2023-10-19] MEDS: VITAMIN D 5,000 UNIT CAP PO SCH (09:08)
[2023-10-19] MEDS ORDERED: WATER FOR INJ,STERILE 10 ML ONE (09:14)
[2023-10-19] MEDS: SOD FERRIC GLUC COMPLX/SUCROSE 125 MG in NA CHLORIDE 0.9% 100 ML IV SCH (09:55)
[2023-10-19 10:03] LABS: Blood Morphology Comment NOT SEEN (NOT SEEN); Platelet Estimate ADEQ
--- NOTE | 2023-10-19 12:19 | P.PN ---
Subjective Date of Service: 10/19/23 Chief Complaint: Respiratory failure on BiPAP morbid obesity Subjective: Improving (Patient is improving tolerating BiPAP mother at the bedside and has refused to use CPAP in the past never been diagnosed with sleep apnea) Review of Systems is unable to be obtained Physical Examination - Vital Signs Temperature: 96.4 F Blood Pressure: 142/73 Pulse: 77 Respirations: 20 Pulse Ox (%): 96 - Physical Exam General: Alert, Cooperative Respiratory: Clear to auscultation bilaterally Cardiovascular: Regular rate/rhythm, Edema Assessment And Plan - Current Problems (Diagnosis) (1) Morbid (severe) obesity with alveolar hypoventilation Current Visit: Yes Status: Acute Plan: PT has morbid obesity with alvolar hypoventilation, Chronic hypercapnea with compensatory high bicarbonate/she did not tolerate CPAP before however he does tolerate the BiPAP machine Labs reviewed blood gases reviewed changed to p.o. Diamox continue with spironolactone and Lasix DC clindamycin invasive ventilator ordered vital signs are stable discharge planning as White count is normal.
--- NOTE | 2023-10-19 15:19 | P.CNS ---
Date of Consult: 10/19/23 Reason for Consult: strep bacteremia, BLE cellulitis Chief Complaint: Respiratory failure on BiPAP morbid obesity History of Present Illness: Patient is a 38 yo male with a past medical history of morbid obesity, lymphedema, GERD who presented to the ED with complaints of increased bilateral lower extremity edema and erythema. Patient was admitted for BLE cellulitis and was also found to have strep bacteremia. Infectious disease was consulted. Allergies No Known Allergies Allergy (Unverified 10/12/23 12:39) Home medications list reviewed: Yes Home Medications: NK [No Home Meds] 10/12/23 - Past Medical/Surgical History Diabetic: No -: left foot sx - Social History Smoking Status: Current every day smoker, Unknown if ever smoked Smoking therapy provided: Yes Alcohol use: No CD- Drugs: No Caffeine use: No Place of Residence: Home Review of Systems 10-point ROS is otherwise unremarkable General: Weakness Cardiovascular: Edema Gastrointestinal: Other (decreased appetite) Physical Examination Temp Pulse Resp BP Pulse Ox 96.4 F L 77 20 142/73 H 96 10/19/23 12:19 10/19/23 12:19 10/19/23 12:19 10/19/23 12:19 10/19/23 12:19 General: Alert, In no apparent distress, Oriented x3, Obese HEENT: Atraumatic, Normocephalic Neck: Supple Respiratory: Normal air movement, Diminished Cardiovascular: Other (edema/lymphedema BLE) Gastrointestinal: Normal bowel sounds, No tenderness Integumentary: Other (BLE erythema, edema and warmth- dressing clean dry and intact) Neurological: Normal speech, Normal tone, Normal affect Laboratory Data - Reviewed Microbiology Data - Reviewed Imagings Data: - Reviewed Conclusions/Impression: Problem List Sepsis secondary to BLE cellulitis Bacteremia due to Streptococcus pyogenes Bilateral Lower Extremity Lymphedema Anasarca Morbid Obesity Sepsis secondary to BLE Cellulitis Streptococcus pyogenes Bacteremia - Leukocytosis improving (WBC 21.3 -> 18.9 -> 16) - Afebrile >72 hours - Blood cultures 10/12: Streptococcus pyogenes - Repeat blood culture 10/14: No growth to date - Currently on Ceftriaxone IV (started 10/14) - Acute respiratory failure Obstructive sleep apnea - Pulmonology following Recommendations - Patient morbidly obese, severe lymphedema, anasarca; concern for poor absorption of PO antibiotic at this time. Continue to diurese patient. - Bacteremia: On day 6 of Ceftriaxone IV, continue while inpatient. - Bilateral lower extremity cellulitis: Rinse with vashe then apply silvadene topical. Wrap with kerlix then KRYSTYNA wrap. Daily and PRN if soiled. May also apply abd pad if large amount of drainage. - Monitor WBC and fever trends - Keep legs elevated Case discussed with Vlad Asencio
[2023-10-19] MEDS: CEFTRIAXONE 2,000 MG in NA CHLORIDE 0.9% 50 ML IV SCH (15:27)
--- NOTE | 2023-10-19 15:30 | P.PN ---
Date of Service: 10/19/23 Subjective: no acute events overnight slow improvement some discomfort in r armpit weaning O2 ROS: 10 point ROS as noted above, otherwise negative Physical Exam: GEN: Alert, oriented, NAD HEENT: Normal conjunctiva, sclera anicteric CV: Regular rate and rhythm, 2+ bilateral lower extremity edema , L>R Pulm: Nonlabored respirations on BiPAP, diminished at bases b/l, +expiratory wheezes ABD: Soft, nontender, nondistended Integumentary: Skin breakdown (BLE), bilateral lower extremity venous stasis dermatitis and ulcers with dressing in place Neuro: Normal speech, normal affect vitals reviewed Problem List: Sepsis secondary to LLE cellulitis Streptococcus pyogenes bacteremia Anasarca Bilateral lower extremity lymphedema Bilateral venous stasis dermatitis and venous stasis ulcer Acute respiratory failure with hypoxia and hypercapnia suspected undiagnosed Obstructive sleep apnea Hyponatremia MARTINA, resolved Morbid obesity h/o GERD Functional constipation Sepsis secondary to LLE cellulitis Streptococcus pyogenes bacteremia Anasarca Bilateral lower extremity lymphedema Bilateral venous stasis dermatitis and venous stasis ulcer blood cx (10/12): Streptococcus Pyogenes blood cx (10/14): NGTD Continue IV Rocephin / clindamycin (10/14-) afebrile, leukocytosis improving ID consulted anticipate PO antibiotic on dc Nephrology is following continue spironolactone PO BID Patient completed multiple dose of tolvaptan. Low-salt diet, fluid restriction, daily weights advised. Continue local wound care. Acute respiratory failure with hypoxia / hypercapnia suspected Obstructive sleep apnea reports never had sleep study / no CPAP at home sleeping habits consistent with obstructive sleep apnea Pulm consulted 10/18 Started diamox NIV ordered repeat ABG 10/18 with some improvement after BIPAP Increase activity as tolerated. Hyponatremia MARTINA, resolved Hypervolemic hyponatremia Nephrology is following previously on Lasix gtt; continue spironolactone Patient started on tolvaptan given anasarca with hyponatremia. Hyponatremia significantly improved. Continue to monitor BMP. Continue to monitor renal function Morbid obesity Continue PT - able to sit at the edge of the bed yesterday Activity as tolerated h/o GERD PRN Tums Functional constipation continue Laxatives and stool softeners VTE: heparin sq Code: Full Dispo: Home, ~2 days Pending further improvement
--- NOTE | 2023-10-19 18:51 | P.PN ---
Subjective Date of Service: 10/19/23 Chief Complaint: Respiratory failure on BiPAP morbid obesity Subjective: Other (bedbound) Physical Examination - Vital Signs Temperature: 98.4 F Blood Pressure: 163/68 Pulse: 84 Respirations: 23 Pulse Ox (%): 97 - Physical Exam General: Other (appears as his stated age) HEENT: Atraumatic, Normocephalic Neck: Supple Respiratory: Other (symmetric chest expansion) Cardiovascular: No rubs, No murmurs Gastrointestinal: Soft and benign, No rebound Musculoskeletal: No clubbing Integumentary: No warmth Neurological: Normal tone Lymphatics: No axilla or inguinal lymphadenopathy Urinary: Other (no bladder distention) External genitalia: Deferred Rectal: Deferred Assessment And Plan - Plan # MARTINA 2/2 sepsis/ATN SCr 1.4 on adm, improved to 0.7 Urinalysi +pyuria, no proteinuria, no hematuria +Mild proteinuria 1.0g on random UPCR CPK not sig elevated, no rhabdo [place] po fluid intake Cont bumex # Sepsis 2/2 LLE cellulitis +Strep bacteremia Abx BLE wound care & multilayer compression therapy # Chronic BLE edema likely 2/2 obesity-related R-sided cardiac + pulmo issues + BLE lymphatic/venous stasis + dependent edema, aggravated by hypolabuminemia BNP sig elevated, f/u TTE BLE multilayer compression Bumex as above Encouraged weight loss & bariatric surg outpt consult # Acute respi failure O2 suppl prn Unable to get chest CT done d/t body habitus BNP sig elevated, f/u TTE Bumex as above # Hyponatremia 2/2 high ADH state from dyspnea & BLE discomfort + renal dysfxn Serum Na improved to 132 [place] by mouth fluid intake Advised on adequate by mouth solid food intake Avoid salt tabs, avoid Na-containing IVF K repletion prn to keep serum K at 4.0 or higher Avoid hypoMg # Vitamin D deficiency Cholecalciferol 5000 international units by mouth daily # Secondary hyperparathyroidism D3 repletion as above # Anemia Monitor CBC
[2023-10-19] MEDS: acetaZOLAMIDE 250 MG TAB PO SCH (20:04)
[2023-10-19] MEDS: SILVER SULFADIAZINE 1% 50 GM TOP SCH (20:05)
[2023-10-20 04:37] LABS: Absolute Lymphocytes (CBC) 2.2 K/uL (0.7-4.9); Hematocrit 30.9 % (39.6-49.0); Lymphocytes % 13.9 % (15.3-44.8); MCV 75.9 fL (80-100); MPV 7.7 fL (7.6-11.3); Platelets 456 thou/uL (152-406); RBC Red Blood Cell Count 4.07 M/uL (4.33-5.43)
[2023-10-20 04:50] LABS: Magnesium 2.3 mg/dL (1.6-2.4); Phosphorus 4.7 mg/dL (2.5-4.9); Potassium 4.5 mEq/L (3.5-5.1)
[2023-10-20] MEDS: ALBUMIN HUMAN 25% 50 ML IV SCH ×2 (05:28→17:30)
--- NOTE | 2023-10-20 08:01 | P.PN ---
Date of Service: 10/20/23 Chief Complaint: Respiratory failure on BiPAP morbid obesity Subjective: Patient resting comfortably in bed. No acute events reported overnight. Denies any new or worsening complaints at this time. Physical Examination Temp Pulse Resp BP Pulse Ox 97.5 F 85 18 156/73 H 95 10/20/23 07:46 10/20/23 07:46 10/20/23 07:46 10/20/23 07:46 10/20/23 07:46 General: Alert, In no apparent distress, Oriented x3, Obese HEENT: Atraumatic, Normocephalic Neck: Supple Respiratory: Normal air movement, Diminished Cardiovascular: Other (edema/lymphedema BLE) Gastrointestinal: Normal bowel sounds, No tenderness Integumentary: Other (BLE erythema, edema and warmth- dressing clean dry and intact) Neurological: Normal speech, Normal tone, Normal affect Laboratory Data - Reviewed Microbiology Data - Reviewed Imagings Data: - Reviewed Medication list reviewed Assessment and plan Problem List Sepsis secondary to BLE cellulitis Bacteremia due to Streptococcus pyogenes Bilateral Lower Extremity Lymphedema Anasarca Morbid Obesity Sepsis secondary to BLE Cellulitis Streptococcus pyogenes Bacteremia - Leukocytosis improving (WBC 21.3 -> 18.9 -> 16) - Afebrile >72 hours - Blood cultures 10/12: Streptococcus pyogenes - Repeat blood culture 10/14: No growth to date - Currently on Ceftriaxone IV (started 10/14) Acute respiratory failure Obstructive sleep apnea - Pulmonology following Recommendations - Patient morbidly obese, severe lymphedema, anasarca; concern for poor absorption of PO antibiotic. Recommend continuation of IV antibiotic therapy for 14 days (10/14-10/27) - Bacteremia: On day 7 of Ceftriaxone IV - Bilateral lower extremity cellulitis: Rinse with vashe then apply silvadene topical. Wrap with kerlix then KRYSTYNA wrap. Daily and PRN if soiled. May also apply abd pad if large amount of drainage. - Monitor WBC and fever trends - Keep legs elevated Case discussed with Vlad Asencio
[2023-10-20] MEDS: acetaZOLAMIDE 250 MG TAB PO SCH ×2 (08:52→20:13)
[2023-10-20] MEDS: SPIRONOLACTONE 25 MG TABLET PO SCH ×2 (08:52→20:13)
[2023-10-20] MEDS: BUMETANIDE 1 MG/4 ML VIAL IV SCH ×2 (08:52→20:16)
[2023-10-20] MEDS: VITAMIN D 5,000 UNIT CAP PO SCH (08:52)
[2023-10-20] MEDS: SOD FERRIC GLUC COMPLX/SUCROSE 125 MG in NA CHLORIDE 0.9% 100 ML IV SCH (08:53)
[2023-10-20] MEDS: SILVER SULFADIAZINE 1% 50 GM TOP SCH ×2 (08:53→20:13)
[2023-10-20] MEDS: POLYETHYL GLY 3350 17 GM/DOSE PO SCH ×2 (08:53→11:38)
--- NOTE | 2023-10-20 10:23 | P.PN ---
Date of Service: 10/20/23 Subjective: tolerated BiPAP overnight feels swelling continues to improve, has not ambulated yet ~5L emptied last 24 hours via thomas no acute events overnight ROS: 10 point ROS as noted above, otherwise negative Physical Exam: GEN: Alert, oriented, NAD HEENT: Normal conjunctiva, sclera anicteric CV: Regular rate and rhythm, 2+ bilateral lower extremity edema , L>R Pulm: Nonlabored respirations on 4L NC /+BiPAP at night, diminished at bases b/l, +expiratory wheezes ABD: Soft, nontender, nondistended Integumentary: bilateral lower extremity with lymphadenopathy. LLE: dry scaly skin, few cm above ankle on lateral left leg: ~3cm area of erythema / superficial ulcer, tender, with small amount of purulent appearing drainage expressed. onychomycosis of left great toe, tender Neuro: Normal speech, normal affect Thomas in place vitals reviewed Problem List: Sepsis secondary to LLE cellulitis with suspected abscess Streptococcus pyogenes bacteremia Anasarca Bilateral lower extremity lymphedema Bilateral venous stasis dermatitis and venous stasis ulcer Onychomycosis Acute respiratory failure with hypoxia and hypercapnia suspected undiagnosed Obstructive sleep apnea Hyponatremia MARTINA, resolved Iron deficiency anemia Morbid obesity h/o GERD Functional constipation Tobacco use Sepsis secondary to LLE cellulitis Streptococcus pyogenes bacteremia Anasarca Bilateral lower extremity lymphedema Bilateral venous stasis dermatitis and venous stasis ulcer blood cx (10/12): Streptococcus Pyogenes blood cx (10/14): NGTD Continue IV Rocephin (10/14-), clindamycin dc'd (10/19) afebrile, leukocytosis improving ID consulted Nephrology is following echo(10/17): 65% EF, very poor study with poor windows continue spironolactone PO BID continue bumex; added 10/19 per nephro Patient completed multiple dose of tolvaptan. thomas placed 10/14 Low-salt diet, fluid restriction, daily weights advised. Continue local wound care Rinse with vashe then apply silvadene topical. Wrap with kerlix then KRYSTYNA wr ap. Daily and PRN if soiled. May also apply abd pad if large amount of drainage. Keep legs elevated Dr. Osborne consulted for eval of possible abscess / may need I&D Onychomycosis start diflucan PO 10/20, Acute respiratory failure with hypoxia / hypercapnia suspected Obstructive sleep apnea reports never had sleep study / no CPAP at home sleeping habits consistent with obstructive sleep apnea Pulm consulted 10/18 continue diamox; switched to PO 10/19 NIV ordered and approved; to be provided upon discharge repeat ABG 10/18 with some improvement after BIPAP Increase activity as tolerated. BiPAP at night as tolerated Hyponatremia MARTINA, resolved Hypervolemic hyponatremia Nephrology is following previously on Lasix gtt; continue spironolactone Patient started on tolvaptan given anasarca with hyponatremia. Hyponatremia significantly improved. Continue to monitor BMP. Continue to monitor renal function Iron deficiency anemia iron studies 10/18 consistent with iron deficiency anemia continue IV iron (s/p 3 bags) Morbid obesity. Continue PT. Activity as tolerated h/o GERD. PRN Tums Functional constipation. continue Laxatives and stool softeners Tobacco use. Cessation advised. Placed on nicoderm patch VTE: heparin sq Code: Full Dispo: Home with HH, ~3-4 days Pending further improvement
[2023-10-20] MEDS: ACETAMINOPHEN 325 MG TABLET PO PRN (11:37)
[2023-10-20] MEDS: CEFTRIAXONE 2,000 MG in NA CHLORIDE 0.9% 50 ML IV SCH (15:08)
--- NOTE | 2023-10-20 16:49 | P.PN ---
Subjective Date of Service: 10/20/23 Chief Complaint: Respiratory failure on BiPAP morbid obesity Subjective: No new changes Physical Examination - Vital Signs Temperature: 97.3 F Blood Pressure: 141/78 Pulse: 95 Respirations: 18 Pulse Ox (%): 92 - Physical Exam General: Other (appears his stated age) HEENT: Atraumatic, Normocephalic Neck: Supple Respiratory: Other (symmetric chest expansion) Cardiovascular: No rubs, No murmurs Gastrointestinal: Soft and benign, No guarding Musculoskeletal: Swelling Integumentary: Skin breakdown Neurological: Normal speech, Normal tone Urinary: Other (no bladder distention) External genitalia: Deferred Rectal: Deferred Assessment And Plan - Plan # MARTINA 2/2 sepsis/ATN SCr 1.4 on adm, improved to 0.7 Urinalysi +pyuria, no proteinuria, no hematuria +Mild proteinuria 1.0g on random UPCR CPK not sig elevated, no rhabdo [place] po fluid intake Cont bumex # Sepsis 2/2 LLE cellulitis +Strep bacteremia Abx BLE wound care & multilayer compression therapy # Chronic BLE edema likely 2/2 obesity-related R-sided cardiac + pulmo issues + BLE lymphatic/venous stasis + dependent edema, aggravated by hypolabuminemia BNP sig elevated BLE multilayer compression Bumex as above Encouraged weight loss & bariatric surg outpt consult # Acute respi failure O2 suppl prn Unable to get chest CT done d/t body habitus BNP sig elevated TTE on 10/17 suboptimal but showed normal LVEF 65% Bumex as above # Hyponatremia 2/2 high ADH state from dyspnea & BLE discomfort + renal dysfxn Serum Na improved to 132 [place] by mouth fluid intake Advised on adequate by mouth solid food intake Avoid salt tabs, avoid Na-containing IVF K repletion prn to keep serum K at 4.0 or higher Avoid hypoMg # Vitamin D deficiency Cholecalciferol 5000 international units by mouth daily # Secondary hyperparathyroidism D3 repletion as above # Anemia Monitor CBC
[2023-10-20] MEDS: FLUCONAZOLE 100 MG TAB PO SCH (17:30)
[2023-10-20] MEDS: VANCOMYCIN 2 GM in NA CHLORIDE 0.9% 500 ML IVPB SCH (18:00)
--- NOTE | 2023-10-20 22:32 | RAD REPORT ---
EXAM DESCRIPTION: US - Extremity Nonvascular Complete - 10/20/2023 9:49 pm CLINICAL HISTORY: Left ankle abscess COMPARISON: None FINDINGS: Sonographic evaluation of the left lateral ankle. Ill-defined fluid is present within the subcutaneous tissues. Increased vascularity is present. A discrete well-formed abscess is not visualized. IMPRESSION: Cellulitis left lateral ankle A discrete well-formed abscess is not visualized
[2023-10-21] MEDS: ALBUMIN HUMAN 25% 50 ML IV SCH ×2 (06:20→17:16)
--- NOTE | 2023-10-21 08:26 | P.PN ---
Date of Service: 10/21/23 Chief Complaint: Respiratory failure on BiPAP morbid obesity Subjective: Patient in bed, in no apparent distress. Denies any new or worsening complaints at this time. No acute events reported overnight. Physical Examination Temp Pulse Resp BP Pulse Ox 97.3 F 95 H 18 141/78 H 92 10/21/23 08:02 10/21/23 08:02 10/21/23 08:02 10/21/23 08:02 10/21/23 08:02 General: Alert, In no apparent distress, Oriented x3, Obese HEENT: Atraumatic, Normocephalic. Respiratory: Normal air movement, Diminished Cardiovascular: Regular rate/rhythm. Edema/lymphedema BLE. Gastrointestinal: Normal bowel sounds, No tenderness Integumentary: LLE edema, erythema, warmth. Onychomycosis. Neurological: Normal speech, Normal tone, Normal affect Laboratory Data - Reviewed Microbiology Data - Reviewed Imagings Data: - Reviewed Medication list reviewed Assessment and plan Problem List Sepsis secondary to BLE cellulitis Bacteremia due to Streptococcus pyogenes Bilateral Lower Extremity Lymphedema Anasarca Morbid Obesity Sepsis secondary to BLE Cellulitis Streptococcus pyogenes Bacteremia - Leukocytosis improving (WBC 21.3 -> 18.9 -> 16 -> 14.8) - Afebrile >72 hours - Blood cultures 10/12: Streptococcus pyogenes - Repeat blood culture 10/14: No growth to date - Currently on Ceftriaxone IV (started 10/14) Concern for abscess, worsening erythema and purulent drainage. Unable to obtain CT due to weight/size limit. Ultrasound ordered by attending, pending. General surgery consulted. - Vancomycin added 10/21 Fluconazole also started 10/20 due to worsening pain of left 1st toe; onychomycosis noted. - Ultrasound left lower extremity 10/20: "Cellulitis left lateral ankle. A discrete well-formed abscess is not visualized" Acute respiratory failure Obstructive sleep apnea - Pulmonology following Recommendations - Cellulitis/concern for abscess: Started on vancomycin IV 10/21. Unable to obtained CT due to weight/size limit. General surgery consulted, recommendations appreciated. - strep Bacteremia: Continue antibiotic therapy x 14 days (10/14 to 10/27). - Monitor WBC and fever trends - Keep legs elevated - Continue wound care Case discussed with Vlad Asencio
[2023-10-21] MEDS: SOD FERRIC GLUC COMPLX/SUCROSE 125 MG in NA CHLORIDE 0.9% 100 ML IV SCH (08:51)
[2023-10-21] MEDS: POLYETHYL GLY 3350 17 GM/DOSE PO SCH (08:51)
[2023-10-21] MEDS: VITAMIN D 5,000 UNIT CAP PO SCH (08:52)
[2023-10-21] MEDS: BUMETANIDE 1 MG/4 ML VIAL IV SCH ×2 (08:52→21:39)
[2023-10-21] MEDS: FLUCONAZOLE 100 MG TAB PO SCH (08:52)
[2023-10-21] MEDS: SPIRONOLACTONE 25 MG TABLET PO SCH ×2 (08:52→21:32)
[2023-10-21] MEDS: VANCOMYCIN 2 GM in NA CHLORIDE 0.9% 500 ML IVPB SCH ×2 (08:52→22:57)
[2023-10-21] MEDS: acetaZOLAMIDE 250 MG TAB PO SCH ×2 (08:52→21:33)
[2023-10-21] MEDS: SILVER SULFADIAZINE 1% 50 GM TOP SCH ×2 (09:00→21:45)
--- NOTE | 2023-10-21 09:37 | P.PN ---
Date of Service: 10/21/23 Subjective: Working with PT; able to stand up out of bed with RW and assist today no new / worsening problems swelling continues to slowly improve on 4L NC during day / +BiPAP at night afebrile ROS: 10 point ROS as noted above, otherwise negative Physical Exam: GEN: Alert, oriented, NAD HEENT: Normal conjunctiva, sclera anicteric CV: Regular rate and rhythm, 2+ bilateral lower extremity edema , L>R Pulm: Nonlabored respirations on 4L NC /+BiPAP at night, diminished at bases b/l, +expiratory wheezes ABD: Soft, nontender, nondistended Integumentary: bilateral lower extremity with lymphadenopathy. LLE: dry scaly skin, few cm above ankle on lateral left leg: ~3cm area of erythema / superficial ulcer, tender, with small amount of purulent appearing drainage expressed. onychomycosis of left great toe, tender Neuro: Normal speech, normal affect Thomas in place vitals reviewed Problem List: Sepsis secondary to LLE cellulitis with suspected abscess Streptococcus pyogenes bacteremia Anasarca Bilateral lower extremity lymphedema Bilateral venous stasis dermatitis and venous stasis ulcer Onychomycosis Acute respiratory failure with hypoxia and hypercapnia suspected undiagnosed obstructive sleep apnea Hyponatremia MARTINA, resolved Iron deficiency anemia Morbid obesity h/o GERD Functional constipation Tobacco use Sepsis secondary to LLE cellulitis with suspected abscess Streptococcus pyogenes bacteremia Anasarca Bilateral lower extremity lymphedema Bilateral venous stasis dermatitis and venous stasis ulcer blood cx (10/12): Streptococcus Pyogenes blood cx (10/14): No growth ID consulted Continue IV Rocephin (10/14-10/27) and vanc (10/20-10/27), clindamycin dc'd (10/19) Vanc added 10/20 given concern for abscess, worsening erythema and purulent drainage continue IV antibiotics for 2 weeks per ID given bacteremia, concern for poor PO abx absorption Unable to obtain CT to further eval possible abscess due to weight/size limit Dr. Osborne consulted for eval of possible abscess / may need I&D Nephrology is following echo(10/17): 65% EF, very poor study with poor windows continue spironolactone PO BID continue bumex; added 10/19 per nephro Patient completed multiple dose of tolvaptan. thomas placed 10/14 Low-salt diet, fluid restriction, daily weights advised. Continue local wound care Rinse with vashe then apply silvadene topical. Wrap with kerlix then KRYSTYNA wrap. Daily and PRN if soiled. May also apply abd pad if large amount of drainage. Keep legs elevated Onychomycosis continue diflucan PO (10/20-) Acute respiratory failure with hypoxia / hypercapnia suspected undiagnosed obstructive sleep apnea reports never had sleep study / no CPAP at home sleeping habits consistent with obstructive sleep apnea Pulm consulted 10/18 continue diamox; switched to PO 10/19 NIV ordered and approved; to be provided upon discharge repeat ABG 10/18 with some improvement after BIPAP Increase activity as tolerated BiPAP at night as tolerated Dulera added 10/21 Hyponatremia MARTINA, resolved Hypervolemic hyponatremia Nephrology is following previously on Lasix gtt; continue spironolactone Patient started on tolvaptan given anasarca with hyponatremia. Hyponatremia significantly improved. Continue to monitor BMP. Continue to monitor renal function Iron deficiency anemia iron studies 10/18 consistent with iron deficiency anemia continue IV iron (s/p 4 bags) Morbid obesity. Continue PT. Activity as tolerated h/o GERD. PRN Tums Functional constipation. continue Laxatives and stool softeners Tobacco use. Cessation advised. Placed on nicoderm patch VTE: Code: Full Dispo: Home with HH, ~2-3 days Pending further improvement
--- NOTE | 2023-10-21 10:41 | P.PN ---
Subjective Date of Service: 10/21/23 Chief Complaint: Respiratory failure on BiPAP morbid obesity Subjective: Improving (Patient is improving although he his left leg looks worse some purulent drainage quiring oxygen and an IV) Review of Systems General: Weakness Respiratory: Shortness of Breath Physical Examination - Vital Signs Temperature: 97.3 F Blood Pressure: 141/78 Pulse: 95 Respirations: 18 Pulse Ox (%): 92 - Physical Exam General: Alert, Oriented x3 Respiratory: Clear to auscultation bilaterally, Diminished Cardiovascular: Edema (Autograft of the legs reviewed) Assessment And Plan - Current Problems (Diagnosis) (1) Morbid (severe) obesity with alveolar hypoventilation Current Visit: Yes Status: Acute Plan: Patient is doing better noninvasive ventilator has been improved the patient is discharged continue with diuretics Diamox spironolactone possible underlying obstructive airways disease as there has underlying asthma COPD possibly due to obesity patient is an active smoker have added Dulera (2) Cellulitis and abscess of left lower extremity Current Visit: Yes Status: Acute Plan: Patient has cellulitis of the left lower extremity suggest changing to p.o. levofloxacin 750 in addition to doxycycline to cover for possible MRSA
[2023-10-21 12:03] LABS: Absolute Lymphocytes (CBC) 2.2 K/uL (0.7-4.9); Hematocrit 30.7 % (39.6-49.0); Lymphocytes % 14.7 % (15.3-44.8); MCV 75.3 fL (80-100); MPV 7.6 fL (7.6-11.3); Platelets 490 thou/uL (152-406); RBC Red Blood Cell Count 4.08 M/uL (4.33-5.43)
--- NOTE | 2023-10-21 12:12 | CON ---
Date of Consultation: 10/21/2023 Reason For Service: Cellulitis to bilateral lower extremity and lymphedema. History Of Present Illness: This is the case of a 38-year-old person with apparently history of lymp hedema. I am still trying to get any information from him, but apparently he is not doing any dressi ng change at home. He is not visiting any lymphedema clinic neither. He has multiple comorbidities, one of them is morbid obesity. His BMI is 81.8 and weight is 554 pounds. He does own. They were getting a little bit too red and he decided to come to the ER. They did the dressing matthew e last night. I am trying to remove the dressings today to look at it this morning. He preferred to wait for me until tomorrow. I have advised him that I need to take a look at the wound, so he point ed out to a lot of pictures that were taken yesterday. In order to maximize compliance and adjust if he is going to let me do a complete evaluation tomorrow, then it is okay. I am going to take a look at the pictures today, but we explained to him the importance of letting us evaluate the area to samy e sure we have a good understanding of the situation and identify opportunities of improvement. Past Medical History: Morbid obesity, lymphedema. Past Surgical History: None. Allergies: NONE. Social History: He does not smoke. He does not drink alcohol. Review of Systems: See above HPI. No shortness of breath. No chest pain. Physical Examination: General: The patient is awake, alert. Eyes: Pupils are equal and reactive. Anicteric. Neck: Supple. Chest: Clear. Heart: S1, S2. Abdomen: Soft and depressible. No guarding or rebound. Extremities: We reviewed the areas exposed on the legs, shows mild erythema. No Homans signs. A go od capillary refill in the toes. Looking also at the picture of his wounds, the patient has severe l ymphedema. Some areas that may be trying to mature into a devitalized tissue. We will see and have a better understanding by tomorrow. Laboratory Data: WBC count is 15.7, hemoglobin of 9.4, and platelets of 456. Potassium is 4.5 and b icarb is 32. Assessment: A 38-year-old patient with history of morbid obesity, severe lymphedema with cellulitis. Once again, we have limitations to getting a physical exam. We discussed with the patient. ____. In the meantime, I believe Estevan is going to be okay. In the meantime, we discuss ed with him different options of lymphedema control. We even have a new lymphedema clinic in [facility] include that I will be glad to getting the information for him to look to it. We discussed also nu trition, weight loss, leg elevation, and also chronic treatment for this lymphedema. [facility] gets [facility]. BOYD/KESHIA Voice ID: [id number] Report ID: [id number]
[2023-10-21 12:17] LABS: Albumin 2.1 g/dL (3.4-5.0); Magnesium 2.5 mg/dL (1.6-2.4); Phosphorus 4.6 mg/dL (2.5-4.9); Potassium 4.3 mEq/L (3.5-5.1)
[2023-10-21] MEDS: DULERA 200/5 (MOMETASONE/FORMOTEROL) INHALER IH SCH ×2 (12:50→21:33)
[2023-10-21 13:18] LABS: Platelet Estimate INCR; White Blood Cell Scan OK (OK)
[2023-10-21 13:19] LABS: Blood Morphology Comment NOT SEEN (NOT SEEN)
--- NOTE | 2023-10-21 14:44 | P.PN ---
Subjective Date of Service: 10/21/23 Chief Complaint: Respiratory failure on BiPAP morbid obesity Subjective: No new changes Physical Examination - Vital Signs Temperature: 97.3 F Blood Pressure: 129/62 Pulse: 87 Respirations: 18 Pulse Ox (%): 92 - Physical Exam General: Other (appears as his stated age) HEENT: Atraumatic, Normocephalic Neck: Supple, JVD not distended Respiratory: Other (symmetric chest expansion) Cardiovascular: No rubs, No murmurs Gastrointestinal: Soft and benign, No guarding Musculoskeletal: Swelling Integumentary: No warmth Neurological: Normal tone Urinary: Other (no bladder distention) External genitalia: Deferred Rectal: Deferred Assessment And Plan - Plan # MARTINA 2/2 sepsis/ATN SCr 1.4 on adm, improved to 0.7 Urinalysi +pyuria, no proteinuria, no hematuria +Mild proteinuria 1.0g on random UPCR CPK not sig elevated, no rhabdo [facility] [place] po fluid intake Cont bumex # Sepsis 2/2 LLE cellulitis +Strep bacteremia Abx BLE wound care & multilayer compression therapy # Chronic BLE edema likely 2/2 obesity-related R-sided cardiac + pulmo issues + BLE lymphatic/venous stasis + dependent edema, aggravated by hypolabuminemia BNP sig elevated BLE multilayer compression Bumex as above Encouraged weight loss & bariatric surg outpt consult # Acute respi failure O2 suppl prn Unable to get chest CT done d/t body habitus BNP sig elevated TTE on 10/17 suboptimal but showed normal LVEF 65% Bumex as above # Hyponatremia 2/2 high ADH state from dyspnea & BLE discomfort + renal dysfxn Improved [facility] [place] by mouth fluid intake Advised on adequate by mouth solid food intake Avoid salt tabs, avoid Na-containing IVF K repletion prn to keep serum K at 4.0 or higher Avoid hypoMg # Vitamin D deficiency Cholecalciferol 5000 international units by mouth daily # Secondary hyperparathyroidism D3 repletion as above # Anemia Monitor CBC
[2023-10-21] MEDS: CEFTRIAXONE 2,000 MG in NA CHLORIDE 0.9% 50 ML IV SCH (15:59)
[2023-10-21] MEDS: NYSTATIN 500,000 UNIT/5 ML UDC PO SCH (21:32)
[2023-10-21] MEDS ORDERED: LACTULOSE 20 GM/30 ML UCUP PO ONE (22:50)
[2023-10-21] MEDS: CALCIUM CARBONATE CHEW 500MG TAB PO PRN (22:57)
[2023-10-22] MEDS: ALBUMIN HUMAN 25% 50 ML IV SCH ×2 (06:15→17:11)
[2023-10-22 08:02] LABS: Absolute Lymphocytes (CBC) 2.2 K/uL (0.7-4.9); Hematocrit 30.8 % (39.6-49.0); Lymphocytes % 15.7 % (15.3-44.8); MCV 75.5 fL (80-100); MPV 7.5 fL (7.6-11.3); Platelets 456 thou/uL (152-406); RBC Red Blood Cell Count 4.07 M/uL (4.33-5.43)
[2023-10-22 08:16] LABS: Albumin 2.3 g/dL (3.4-5.0); Magnesium 2.3 mg/dL (1.6-2.4); Phosphorus 4.9 mg/dL (2.5-4.9); Potassium 4.2 mEq/L (3.5-5.1)
--- NOTE | 2023-10-22 08:54 | P.PN ---
Date of Service: 10/22/23 Subjective: swelling in legs continues to improve slowly felt some abdominal muscle cramping overnight reports for ~1 minute yesterday middle finger was stuck in flexed position. +swelling of right extremity afebrile ROS: 10 point ROS as noted above, otherwise negative Physical Exam: GEN: Alert, oriented, NAD HEENT: Normal conjunctiva, sclera anicteric CV: Regular rate and rhythm, 2+ bilateral lower extremity edema , L>R Pulm: Nonlabored respirations on 3L NC /+BiPAP at night, diminished at bases b/l, +expiratory wheezes ABD: Soft, nontender, nondistended Integumentary: bilateral lower extremity with lymphadenopathy. LLE: dry scaly skin, few cm above ankle on lateral left leg: onychomycosis of left great toe, tender Neuro: Normal speech, normal affect Thomas in place vitals reviewed Problem List: Sepsis secondary to LLE cellulitis with suspected abscess Streptococcus pyogenes bacteremia Anasarca Bilateral lower extremity lymphedema Bilateral venous stasis dermatitis and venous stasis ulcer Onychomycosis Oral Thrush Acute respiratory failure with hypoxia and hypercapnia suspected undiagnosed obstructive sleep apnea Hyponatremia MARTINA, resolved Iron deficiency anemia Morbid obesity h/o GERD Functional constipation Tobacco use Sepsis secondary to LLE cellulitis with suspected abscess Streptococcus pyogenes bacteremia Anasarca Bilateral lower extremity lymphedema Bilateral venous stasis dermatitis and venous stasis ulcer blood cx (10/12): Streptococcus Pyogenes blood cx (10/14): No growth ID consulted Continue IV Rocephin (10/14-10/27) and vanc (10/20-10/27), clindamycin dc'd (10/19) Vanc added 10/20 given concern for abscess, worsening erythema and purulent drainage continue IV antibiotics for 2 weeks per ID given bacteremia, concern for poor PO abx absorption Unable to obtain CT to further eval possible abscess due to weight/size limit Dr. Osborne consulted for eval of possible abscess / may need I&D LLE ultrasound (10/20): cellulitis left lateral ankle. no abscess visualized. Nephrology is following echo(10/17): 65% EF, very poor study with poor windows; continue PO spironolactone, bumex s/p multiple dose of tolvaptan. thomas placed 10/14 for accurate i/o's Low-salt diet, fluid restriction, daily weights advised. Continue local wound care Rinse with vashe then apply silvadene topical. Wrap with kerlix then KRYSTYNA wrap. Daily and PRN if soiled. May also apply abd pad if large amount of drainage. Keep legs elevated 10/22 - reports for ~1 minute yesterday middle finger was stuck in flexed position. +mild swelling of right extremity Right upper extremity u/s (10/22): ordered r/u DVT Onychomycosis Oral Thrush continue diflucan PO (10/20-) continue Nystatin, added 10/21 Acute respiratory failure with hypoxia / hypercapnia suspected undiagnosed obstructive sleep apnea reports never had sleep study / no CPAP at home sleeping habits consistent with obstructive sleep apnea Pulm consulted 10/18 continue diamox; switched to PO 10/19 NIV ordered and approved; to be provided upon discharge repeat ABG 10/18 with some improvement after BIPAP Increase activity as tolerated; BiPAP at night as tolerated Hyponatremia MARTINA, resolved Hypervolemic hyponatremia Nephrology is following previously on Lasix gtt; continue spironolactone Patient started on tolvaptan given anasarca with hyponatremia. Hyponatremia significantly improved. Continue to monitor monitor renal function / BMP Iron deficiency anemia iron studies 10/18 consistent with iron deficiency anemia continue IV iron (s/p 5 bags) Morbid obesity. Continue PT. Activity as tolerated h/o GERD. PRN Tums Functional constipation. continue Laxatives and stool softeners Tobacco use. Cessation advised. Placed on nicoderm patch Code: Full Dispo: Home with HH, ~2-3 days Pending further improvement
[2023-10-22] MEDS: POLYETHYL GLY 3350 17 GM/DOSE PO SCH (09:01)
[2023-10-22] MEDS: BUMETANIDE 1 MG/4 ML VIAL IV SCH ×2 (09:02→23:47)
[2023-10-22] MEDS: SPIRONOLACTONE 25 MG TABLET PO SCH ×2 (09:02→21:00)
[2023-10-22] MEDS: FLUCONAZOLE 100 MG TAB PO SCH (09:02)
[2023-10-22] MEDS: DULERA 200/5 (MOMETASONE/FORMOTEROL) INHALER IH SCH ×2 (09:03→23:45)
[2023-10-22] MEDS: acetaZOLAMIDE 250 MG TAB PO SCH ×2 (09:03→23:44)
[2023-10-22] MEDS: NYSTATIN 500,000 UNIT/5 ML UDC PO SCH ×4 (09:03→23:43)
[2023-10-22] MEDS: VITAMIN D 5,000 UNIT CAP PO SCH (09:03)
[2023-10-22] MEDS: VANCOMYCIN 2 GM in NA CHLORIDE 0.9% 500 ML IVPB SCH ×2 (09:25→23:43)
[2023-10-22] MEDS: SOD FERRIC GLUC COMPLX/SUCROSE 125 MG in NA CHLORIDE 0.9% 100 ML IV SCH (09:25)
[2023-10-22] MEDS: SILVER SULFADIAZINE 1% 50 GM TOP SCH ×2 (09:26→23:45)
--- NOTE | 2023-10-22 12:09 | RAD REPORT ---
EXAM DESCRIPTION: US - UPPER EXTREMITY VENOUS UNILATE - 10/22/2023 11:58 am CLINICAL HISTORY: Swelling R extremity, r/o DVT Arm swelling and edema. COMPARISON: No comparisons FINDINGS: Right upper extremity venous system was interrogated with Doppler technique. Small thrombu s is present in the antecubital fossa cephalic vein at the site of IV. Elsewhere there is no right up per extremity DVT seen. IMPRESSION: Small amount of thrombus seen in the antecubital fossa cephalic vein. Elsewhere, no sign ificant upper extremity DVT is present.
--- NOTE | 2023-10-22 15:40 | P.PN ---
Subjective Date of Service: 10/22/23 Chief Complaint: Respiratory failure on BiPAP morbid obesity Subjective: No new changes Physical Examination - Vital Signs Temperature: 96.7 F Blood Pressure: 140/74 Pulse: 82 Respirations: 17 Pulse Ox (%): 96 - Physical Exam General: Other (appears his stated age) HEENT: Atraumatic, Normocephalic Neck: Supple Respiratory: Other (symmetric chest expansion) Cardiovascular: No rubs, No murmurs Gastrointestinal: Soft and benign, No rebound Musculoskeletal: Swelling Integumentary: No cyanosis Neurological: Normal speech, Normal tone Urinary: Other (no bladder distention) External genitalia: Deferred Rectal: Deferred Assessment And Plan - Plan # MARTINA 2/2 sepsis/ATN SCr 1.4 on adm, improved to 0.6 Urinalysi +pyuria, no proteinuria, no hematuria +Mild proteinuria 1.0g on random UPCR CPK not sig elevated, no rhabdo [place] po fluid intake Cont bumex # Sepsis 2/2 LLE cellulitis +Strep bacteremia Abx BLE wound care & multilayer compression therapy # Chronic BLE edema likely 2/2 obesity-related R-sided cardiac + pulmo issues + BLE lymphatic/venous stasis + dependent edema, aggravated by hypolabuminemia BNP sig elevated BLE multilayer compression Bumex as above Encouraged weight loss & bariatric surg outpt consult # Acute respi failure O2 suppl prn Unable to get chest CT done d/t body habitus BNP sig elevated TTE on 10/17 suboptimal but showed normal LVEF 65% Bumex as above # Hyponatremia 2/2 high ADH state from dyspnea & BLE discomfort + renal dysfxn Improved [place] by mouth fluid intake Advised on adequate by mouth solid food intake Avoid salt tabs, avoid Na-containing IVF K repletion prn to keep serum K at 4.0 or higher Avoid hypoMg # Vitamin D deficiency Cholecalciferol 5000 international units by mouth daily # Secondary hyperparathyroidism D3 repletion as above # Anemia Monitor CBC
[2023-10-22] MEDS: CEFTRIAXONE 2,000 MG in NA CHLORIDE 0.9% 50 ML IV SCH (16:01)
--- NOTE | 2023-10-22 19:58 | PN ---
Date of Progress Note: 10/22/2023 Reason For Service: Bilateral leg cellulitis, lymphedema, nonhealing venous stasis ulcers. Subjective: This is a case of a 38-year-old patient, morbidly obese, with chronic leg swelling and a lso thigh swelling, came with cellulitis. We have been doing dressing changes since yesterday. We a lready have an improvement of his fluid diminishing judging by the characteristic of the skin at this moment. Objective: Chest: Clear. Abdomen: Soft and depressible. Extremities: Cellulitis is improving. Patient has multiple venous stasis ulcers scattered all over the bilateral lower extremities and also the thigh region bilaterally, maybe medial. Lymphedema is d ecreasing in size. Pulses are present. No cyanosis. Plan: We discussed with him and his service establishment attendant at bedside the need for losing some weight. I believe he needs professional help. Also, we explained to him the need to follow lymphedema for life. We a re going to continue the same dressing changes this moment. We will let this delineate in the next 2 4-48 hours. We see some areas that are not healing. He may have to go for excision and debridement, but still those would not substitute his antibiotics, his diet control, and leg elevation. HM/MODL Voice ID: [id number] Report ID: [id number]
[2023-10-23 05:07] LABS: Albumin 2.3 g/dL (3.4-5.0); Phosphorus 4.5 mg/dL (2.5-4.9); Potassium 4.2 mEq/L (3.5-5.1)
[2023-10-23] MEDS: ALBUMIN HUMAN 25% 50 ML IV SCH ×2 (06:06→17:31)
--- NOTE | 2023-10-23 08:22 | P.PN ---
Date of Service: 10/23/23 Subjective: swelling in legs continues to improve slowly no further episodes of finger being stuck in flex position Dr. Osborne eval wounds yesterday, possible I&D tomorrow mouth feels ~same as yesterday; still red/raw afebrile ROS: 10 point ROS as noted above, otherwise negative Physical Exam: GEN: Alert, oriented, NAD HEENT: Normal conjunctiva, sclera anicteric CV: Regular rate and rhythm, 2+ bilateral lower extremity edema , L>R Pulm: Nonlabored respirations on 3L NC /+BiPAP at night, diminished at bases b/l, +expiratory wheezes ABD: Soft, nontender, nondistended Integumentary: bilateral lower extremity with lymphadenopathy. LLE: dry scaly skin, few cm above ankle on lateral left leg: onychomycosis of left great toe, tender Neuro: Normal speech, normal affect Thomas in place vitals reviewed Problem List: Sepsis secondary to LLE cellulitis with suspected abscess Streptococcus pyogenes bacteremia Anasarca Bilateral lower extremity lymphedema Bilateral venous stasis dermatitis and venous stasis ulcer Onychomycosis Oral Thrush Acute respiratory failure with hypoxia and hypercapnia suspected undiagnosed obstructive sleep apnea Hyponatremia MARTINA, resolved Iron deficiency anemia Morbid obesity h/o GERD Functional constipation Tobacco use Sepsis secondary to LLE cellulitis with suspected abscess Streptococcus pyogenes bacteremia Anasarca Bilateral lower extremity lymphedema Bilateral venous stasis dermatitis and venous stasis ulcer blood cx (10/12): Streptococcus Pyogenes blood cx (10/14): No growth ID consulted Continue IV Rocephin (10/14-10/27) and vanc (10/20-10/27), clindamycin dc'd (10/19) Vanc added 10/20 given concern for abscess, worsening erythema and purulent drainage continue IV antibiotics for 2 weeks per ID given bacteremia, concern for poor PO abx absorption Unable to obtain CT to further eval possible abscess due to weight/size limit Dr. Osborne consulted for eval of possible abscess / may need I&D Continue local wound care Rinse with vashe then apply silvadene topical. Wrap with kerlix then KRYSTYNA wrap. Daily and PRN if soiled. May also apply abd pad if large amount of drainage. Keep legs elevated LLE ultrasound (10/20): cellulitis left lateral ankle. no abscess visualized. NPO at midnight for possible I&D tomorrow with Dr. sOborne Nephrology is following echo(10/17): 65% EF, very poor study with poor windows; continue PO spironolactone, bumex s/p multiple dose of tolvaptan. thomas placed 10/14 for accurate i/o's Low-salt diet, fluid restriction, daily weights advised. 10/22 - reports for ~1 minute yesterday middle finger was stuck in flexed position. +mild swelling of right extremity Right upper extremity u/s (10/22): Small amount of thrombus seen in the antecubital fossa cephalic vein. Elsewhere, no significant upper extremity DVT is present IV reinserted 10/22; no further episodes Onychomycosis Oral Thrush continue diflucan PO (10/20-) continue Nystatin, added 10/21 Acute respiratory failure with hypoxia / hypercapnia suspected undiagnosed obstructive sleep apnea reports never had sleep study / no CPAP at home sleeping habits consistent with obstructive sleep apnea Pulm consulted 10/18 continue diamox; switched to PO 10/19 NIV ordered and approved; to be provided upon discharge repeat ABG 10/18 with some improvement after BIPAP Increase activity as tolerated; BiPAP at night as tolerated Hyponatremia MARTINA, resolved Hypervolemic hyponatremia Nephrology is following previously on Lasix gtt; continue spironolactone Patient started on tolvaptan given anasarca with hyponatremia. Hyponatremia significantly improved. Continue to monitor monitor renal function / BMP Iron deficiency anemia iron studies 10/18 consistent with iron deficiency anemia continue IV iron (s/p 6 bags) Morbid obesity. Continue PT. Activity as tolerated h/o GERD. PRN Tums Functional constipation. continue Laxatives and stool softeners Tobacco use. Cessation advised. Placed on nicoderm patch Code: Full Dispo: Home with HH, anticipate +/- 1 day Pending further improvement, possible I&D next 24-48 hrs
[2023-10-23] MEDS: SOD FERRIC GLUC COMPLX/SUCROSE 125 MG in NA CHLORIDE 0.9% 100 ML IV SCH (08:31)
[2023-10-23] MEDS: POLYETHYL GLY 3350 17 GM/DOSE PO SCH ×2 (08:31→09:00)
[2023-10-23] MEDS: acetaZOLAMIDE 250 MG TAB PO SCH ×2 (08:32→21:36)
[2023-10-23] MEDS: FLUCONAZOLE 100 MG TAB PO SCH (08:32)
[2023-10-23] MEDS: SPIRONOLACTONE 25 MG TABLET PO SCH ×2 (08:32→21:37)
[2023-10-23] MEDS: NYSTATIN 500,000 UNIT/5 ML UDC PO SCH ×4 (08:33→21:36)
[2023-10-23] MEDS: BUMETANIDE 1 MG/4 ML VIAL IV SCH ×2 (08:33→21:36)
[2023-10-23] MEDS: VITAMIN D 5,000 UNIT CAP PO SCH (08:34)
[2023-10-23] MEDS: DULERA 200/5 (MOMETASONE/FORMOTEROL) INHALER IH SCH ×2 (08:34→21:00)
[2023-10-23] MEDS: VANCOMYCIN 2 GM in NA CHLORIDE 0.9% 500 ML IVPB SCH ×2 (08:42→21:36)
[2023-10-23] MEDS: SILVER SULFADIAZINE 1% 50 GM TOP SCH ×2 (09:00→21:00)
[2023-10-23] MEDS ORDERED: MAGNESIUM CITRATE 300 ML BOT PO SCH (12:00)
--- NOTE | 2023-10-23 15:38 | P.PN ---
Subjective Date of Service: 10/23/23 Chief Complaint: Respiratory failure on BiPAP morbid obesity Subjective: No new changes Physical Examination - Vital Signs Temperature: 96 F Blood Pressure: 149/80 Pulse: 88 Respirations: 18 Pulse Ox (%): 90 - Physical Exam General: Other (appears as his stated age) HEENT: Atraumatic, Normocephalic Neck: Supple Respiratory: Other (symmetric chest expansion) Cardiovascular: No rubs, No murmurs Gastrointestinal: Soft and benign, No guarding Musculoskeletal: Swelling Integumentary: Erythema (both legs) Neurological: Normal speech, Normal tone Urinary: Other (no bladder distention) External genitalia: Deferred Rectal: Deferred Assessment And Plan - Plan # MARTINA 2/2 sepsis/ATN SCr 1.4 on adm, improved to 0.6-0.7 Urinalysi +pyuria, no proteinuria, no hematuria +Mild proteinuria 1.0g on random UPCR CPK not sig elevated, no rhabdo [place] po fluid intake Cont bumex # Sepsis 2/2 LLE cellulitis +Strep bacteremia Abx BLE wound care & multilayer compression therapy # Chronic BLE edema likely 2/2 obesity-related R-sided cardiac + pulmo issues + BLE lymphatic/venous stasis + dependent edema, aggravated by hypolabuminemia BNP sig elevated BLE multilayer compression Bumex as above Encouraged weight loss & bariatric surg outpt consult # Acute respi failure O2 suppl prn Unable to get chest CT done d/t body habitus BNP sig elevated TTE on 10/17 suboptimal but showed normal LVEF 65% Bumex as above # Hyponatremia 2/2 high ADH state from dyspnea & BLE discomfort + renal dysfxn Improved [place] by mouth fluid intake Advised on adequate by mouth solid food intake Avoid salt tabs, avoid Na-containing IVF K repletion prn to keep serum K at 4.0 or higher Avoid hypoMg # Vitamin D deficiency Cholecalciferol 5000 international units by mouth daily # Secondary hyperparathyroidism D3 repletion as above # Anemia Monitor CBC
--- NOTE | 2023-10-23 15:50 | PN ---
Date of Progress Note: 10/23/2023 Reason For Service: Bilateral lower extremity cellulitis necrotic wounds. Subjective: Patient is improving with the antibiotics. Also, the swelling is improving. No calf te nderness. Objective: Vital Signs: Reviewed. Chest: Clear. Abdomen: Soft and depressible. Extremities: Bilateral Lower Extremities: Still erythema present. There are some areas that we are trying to delineate and make sure those areas are going to have to be debrided. Laboratory Data: WBC count of 13.7. Plan: Will be excision and debridement of bilateral lower extremities necrotic wounds. Benefits, al ternatives, and risks were fully explained, which include, but not limited to infection, bleeding, da mage to adjacent structures, anesthesia complication, nonhealing wound, MT, and even . Once aga in, we are reinforcing him the importance of losing weight and the importance of a lymphedema treatme nt chronically. BOYD/MODL Voice ID: [id number] Report ID: [id number]
[2023-10-23] MEDS: CEFTRIAXONE 2,000 MG in NA CHLORIDE 0.9% 50 ML IV SCH (16:08)
[2023-10-23] MEDS: CALCIUM CARBONATE CHEW 500MG TAB PO PRN (18:34)
[2023-10-24] MEDS: ALBUMIN HUMAN 25% 50 ML IV SCH ×2 (06:20→18:01)
--- NOTE | 2023-10-24 08:39 | P.PN ---
Date of Service: 10/24/23 Subjective: swelling in legs continues to improve slowly; +softer and less red NPO for possible I&D today toe pain / tenderness ~same as yesterday oral thrush improving afebrile ROS: 10 point ROS as noted above, otherwise negative Physical Exam: GEN: Alert, oriented, NAD HEENT: Normal conjunctiva, sclera anicteric CV: Regular rate and rhythm, 2+ bilateral lower extremity edema , L>R Pulm: Nonlabored respirations on 3L NC /+BiPAP at night, diminished at bases b/l, +expiratory wheezes ABD: Soft, nontender, nondistended Integumentary: bilateral lower extremity with lymphadenopathy. LLE: dry scaly skin, few cm above ankle on lateral left leg: onychomycosis of left great toe, tender bilateral flanks and extremities with blanching macular rash Neuro: Normal speech, normal affect Thomas in place vitals reviewed Problem List: Sepsis secondary to LLE cellulitis with suspected abscess Streptococcus pyogenes bacteremia Anasarca Bilateral lower extremity lymphedema Bilateral venous stasis dermatitis and venous stasis ulcer Small thrombus at IV site, superficial Onychomycosis Oral Thrush Acute respiratory failure with hypoxia and hypercapnia suspected undiagnosed obstructive sleep apnea Hyponatremia MARTINA, resolved Iron deficiency anemia Morbid obesity h/o GERD Functional constipation Tobacco use Sepsis secondary to LLE cellulitis with suspected abscess Streptococcus pyogenes bacteremia Anasarca Bilateral lower extremity lymphedema Bilateral venous stasis dermatitis and venous stasis ulcer blood cx (10/12): Streptococcus Pyogenes blood cx (10/14): No growth ID consulted Continue IV Rocephin (10/14-10/27) and vanc (10/20-10/27), clindamycin dc'd (10/19) Vanc added 10/20 given concern for abscess, worsening erythema and purulent drainage continue IV antibiotics for 2 weeks per ID given bacteremia, concern for poor PO abx absorption Unable to obtain CT to further eval possible abscess due to weight/size limit Dr. Osborne consulted for eval of possible abscess / may need I&D Continue local wound care Rinse with vashe then apply silvadene topical. Wrap with kerlix then KRYSTYNA wrap. Daily and PRN if soiled. May also apply abd pad if large amount of drainage. Keep legs elevated LLE ultrasound (10/20): cellulitis left lateral ankle. no abscess visualized. NPO for I&D with Dr. Osborne Nephrology is following echo(10/17): 65% EF, very poor study with poor windows; continue PO spironolactone, bumex s/p multiple dose of tolvaptan. thomas placed 10/14 for accurate i/o's Low-salt diet, fluid restriction, daily weights advised. Small thrombus at IV site, superficial 10/22 - reports for ~1 minute yesterday middle finger was stuck in flexed position. +mild swelling of right extremity Right upper extremity u/s (10/22): Small amount of thrombus seen in the antecubital fossa cephalic vein. Elsewhere, no significant upper extremity DVT is present IV removed and reinserted in new location 10/22; no further episodes. Continue to monitor for worsening signs. Onychomycosis Oral Thrush continue diflucan PO (10/20-) continue Nystatin, added 10/21 Acute respiratory failure with hypoxia / hypercapnia suspected undiagnosed obstructive sleep apnea reports never had sleep study / no CPAP at home sleeping habits consistent with obstructive sleep apnea Pulm consulted 10/18 continue diamox; switched to PO 10/19 NIV ordered and approved; to be provided upon discharge repeat ABG 10/18 with some improvement after BIPAP Increase activity as tolerated; BiPAP at night as tolerated Hyponatremia MARTINA, resolved Hypervolemic hyponatremia Nephrology is following previously on Lasix gtt; continue spironolactone Patient started on tolvaptan given anasarca with hyponatremia. Hyponatremia significantly improved. Continue to monitor monitor renal function / BMP Iron deficiency anemia iron studies 10/18 consistent with iron deficiency anemia continue IV iron (s/p 6 bags) Morbid obesity. Continue PT. Activity as tolerated h/o GERD. PRN Tums Functional constipation. continue Laxatives and stool softeners Tobacco use. Cessation advised. Placed on nicoderm patch Code: Full Dispo: Home with , anticipate +/- 1 day Pending further improvement, I&D today
[2023-10-24] MEDS: BUMETANIDE 1 MG/4 ML VIAL IV SCH ×2 (08:53→20:44)
[2023-10-24] MEDS: SOD FERRIC GLUC COMPLX/SUCROSE 125 MG in NA CHLORIDE 0.9% 100 ML IV SCH (08:53)
[2023-10-24] MEDS: DULERA 200/5 (MOMETASONE/FORMOTEROL) INHALER IH SCH ×2 (08:58→20:42)
[2023-10-24] MEDS: POLYETHYL GLY 3350 17 GM/DOSE PO SCH (09:00)
[2023-10-24] MEDS: acetaZOLAMIDE 250 MG TAB PO SCH ×2 (09:00→20:41)
[2023-10-24] MEDS: SILVER SULFADIAZINE 1% 50 GM TOP SCH ×2 (09:00→20:44)
[2023-10-24] MEDS: FLUCONAZOLE 100 MG TAB PO SCH (09:00)
[2023-10-24] MEDS: VITAMIN D 5,000 UNIT CAP PO SCH (09:00)
[2023-10-24] MEDS: SPIRONOLACTONE 25 MG TABLET PO SCH ×2 (09:00→20:41)
[2023-10-24] MEDS: NYSTATIN 500,000 UNIT/5 ML UDC PO SCH ×4 (09:00→20:41)
--- NOTE | 2023-10-24 09:37 | P.PN ---
Date of Service: 10/24/23 Chief Complaint: Respiratory failure on BiPAP morbid obesity Subjective: Scheduled for debridement of bilateral lower extremity cellulitis/necrotic ulcers today by Dr. Osborne. No acute events reported over the weekend. Physical Examination Temp Pulse Resp BP Pulse Ox 99.2 F 91 H 19 151/59 H 96 10/24/23 08:00 10/24/23 08:53 10/24/23 08:00 10/24/23 08:53 10/24/23 08:00 General: Alert, In no apparent distress, Oriented x3, Obese HEENT: Atraumatic, Normocephalic. Dry mucous membranes. Respiratory: Normal air movement, Diminished Cardiovascular: Regular rate/rhythm. Edema/lymphedema BLE. Gastrointestinal: Normal bowel sounds, No tenderness Integumentary: BLE cellulitis worsening. Onychomycosis. Neurological: Normal speech, Normal tone, Normal affect Laboratory Data - Reviewed Microbiology Data - Reviewed Imagings Data: - Reviewed Medication list: - Reviewed Assessment and plan Problem List Sepsis secondary to BLE cellulitis Bacteremia due to Streptococcus pyogenes Bilateral Lower Extremity Lymphedema Anasarca Morbid Obesity Sepsis secondary to BLE Cellulitis Streptococcus pyogenes Bacteremia - Leukocytosis improving (WBC 21.3 -> 18.9 -> 16 -> 14.8) - Afebrile >72 hours - Blood cultures 10/12: Streptococcus pyogenes - Repeat blood culture 10/14: No growth to date - Currently on Ceftriaxone IV (started 10/14) Concern for abscess, worsening erythema and purulent drainage. Unable to obtain CT due to weight/size limit. Ultrasound ordered by attending, pending. General surgery consulted. - Vancomycin added 10/21 Fluconazole also started 10/20 due to worsening pain of left 1st toe; onychomyc osis noted. - Ultrasound left lower extremity 10/20: "Cellulitis left lateral ankle. A discrete well-formed abscess is not visualized" - 10/24: underwent Excisional subcutaneous debridement of necrotic infected ulcers by Dr. Osborne --> Left proximal leg about 15 x 10 x 2 cm. Left distal leg 10 x 10 x 2 cm. Left thigh medially 5 x 5 x 2 cm. Right distal leg lateral 4 x 4 x 2 cm. Acute respiratory failure Obstructive sleep apnea - Pulmonology following Recommendations - Cellulitis/necrotic ulcers: Continue current antibiotics for now. s/p debridement today; wound cultures obtained, pending. Follow up with results. - Continue wound care per Dr. Osborne. - strep Bacteremia: Continue antibiotic therapy x 14 days (10/14 to 10/27). Currently on day 11 of 14. - Monitor WBC and fever trends - Keep legs elevated Case discussed with Vlad Asencio
[2023-10-24] MEDS ORDERED: Ringers Lactate 1,000 ML IV ONE (10:04)
[2023-10-24] MEDS ORDERED: MIDAZOLAM HCL 2 MG/2 ML INJ ONE ×2 (10:22→10:55)
[2023-10-24] MEDS ORDERED: propofoL 200 MG/20 ML VIAL IV ONE ×3 (10:22→10:55)
[2023-10-24] MEDS ORDERED: FENTANYL CITR 100 MCG/2 ML ONE ×3 (10:22→11:34)
[2023-10-24] MEDS ORDERED: KETOROLAC 30 MG/ML INJ ONE (10:23)
[2023-10-24] MEDS ORDERED: ONDANSETRON 4 MG/2 ML VIAL ONE ×2 (10:23→10:56)
[2023-10-24] MEDS ORDERED: LIDOCAINE 2% MPF 5 ML VIAL ONE (10:23)
[2023-10-24] MEDS ORDERED: LIDOCAINE 1% MPF 5 ML VIAL ONE (10:56)
[2023-10-24] MEDS ORDERED: Mastisol Adhesive Liq ONE (11:13)
[2023-10-24] MEDS ORDERED: SILVER SULFADIAZINE 1% 25 GM TOP ONE (11:54)
--- NOTE | 2023-10-24 12:12 | P.BOP ---
Preoperative diagnosis: bilateral LE cellulitis, severe lymphedema, necrotic ulcers Postoperative diagnosis: same Primary procedure: Excisional subQ debrid.necrotic infected ulcers: 1. Left prox leg([id number] Secondary procedure: 2. L Distal leg ([id number]), 3. Left thigh ([id number]) Other procedure(s): 4. Right Leg ([id number]) Estimated blood loss: <100cc Specimen: cultures Findings: necrotic infected ulcers Anesthesia: General Complications: None Drain(s): Other (NS) Transferred to: Recovery Room Condition: Good
[2023-10-24] MEDS: VANCOMYCIN 2 GM in NA CHLORIDE 0.9% 500 ML IVPB SCH (14:01)
--- NOTE | 2023-10-24 14:04 | OP ---
Date of Procedure: 10/24/2023 Surgeon: Juan Osborne MD Preoperative Diagnoses: Bilateral lower extremity cellulitis, severe lymphedema, necrotic ulcers. Postoperative Diagnoses: Bilateral lower extremity cellulitis, severe lymphedema, necrotic ulcers. Procedures: Excisional subcutaneous debridement of necrotic infected ulcers: 1.Left proximal leg about 15 x 10 x 2 cm. 2.Left distal leg 10 x 10 x 2 cm. 3.Left thigh medially 5 x 5 x 2 cm. 4.Right distal leg lateral 4 x 4 x 2 cm. Estimated Blood Loss: Less than 100 cc. Specimen: Cultures. Findings: Severe lymphedema, bilateral lower extremities. This patient weighed over 500 pounds and bilateral extremities are large too once again making this lymphedema little more pronounced. Complications: None. Drain: Packing, wet-to-dry. Indications For Procedure: This is a case of a 38-year-old patient with a morbid obesity, comes to [facility] with bilateral lymphedema, also blisters of necrotic wounds and cellulitis. Patient started on IV antibiotics, controlling medical issues and now is here for debridement of the bilateral lower extrem ities ulcers. See above for details. Benefits, alternatives, and risks fully explained, which inclu de, but not limited to, infection, bleeding, damage to adjacent structures, anesthesia complications, recurrence, ND, and even . He also understands this will require more than one surgical debrid ement and chronic wound care. He understands the importance of losing weight, leg elevation, and fol lowing up with the primary doctor. Description Of Procedure: The patient was brought to the operating room, placed in supine position. Anesthesia was done without complication. Bilateral lower extremities were prepped and draped in st erile fashion. Each procedure was done individually using the same technique which consisted of loca l anesthetic, and then sharp incision with a knife and then debridement of the devitalized necrotic t issue cultures done. Hemostasis was obtained. We have to remember this patient has lymphedema and h igh venous pressure. So, we spent most of the time in hemostasis and once again removing the necroti c tissue and then we packed those areas. This was done on the left proximal thigh, distal leg, left thigh and right leg. See above for size. Patient tolerated the procedure well. Hemostasis was obta ined. Sponge counts and instrument counts were correct. Patient was sent to Recovery in stable cond ition. HM/MODL Voice ID: [id number] Report ID: [id number]
[2023-10-24] MEDS: CEFTRIAXONE 2,000 MG in NA CHLORIDE 0.9% 50 ML IV SCH (16:34)
[2023-10-24] MEDS: ACETAMINOPHEN 325 MG TABLET PO PRN (16:43)
[2023-10-24 18:15] LABS: Magnesium 2.7 mg/dL (1.6-2.4); Potassium 4.2 mEq/L (3.5-5.1)
[2023-10-24 18:54] LABS: Absolute Lymphocytes (CBC) 1.6 K/uL (0.7-4.9); Hematocrit 31.4 % (39.6-49.0); Lymphocytes % 12.3 % (15.3-44.8); MCV 76.1 fL (80-100); MPV 7.9 fL (7.6-11.3); Platelets 474 thou/uL (152-406); RBC Red Blood Cell Count 4.13 M/uL (4.33-5.43)
[2023-10-24] MEDS ORDERED: DIPHENHYDRAMINE 25 MG TAB/CAP PO ONE (19:39)
--- NOTE | 2023-10-24 23:22 | PN ---
Date of Progress Note: 10/24/2023 Chief Complaint: Fluid overload, lower extremity cellulitis, anasarca, lymphedema. Subjective: The patient underwent debridement for nonhealing lower extremity wounds. The patient lipscomb s respiratory failure. He is on BiPAP. He has history of morbid obesity. Review of Systems: No new complaints. Physical Examination: Lungs: Equal chest expansion. Heart: S1, S2. Abdomen: Soft. Extremities: Edema. Dressing in place. Impression And Plan: 1.Acute kidney injury secondary to sepsis and acute tubular necrosis. Serum creatinine was up to 1. 4 on admission, improved to 0.6 and 0.7. Urinalysis was positive for pyuria, no proteinuria, and no hematuria. Mild proteinuria was found when urine has done for urine protein/creatinine ratio. 2.CPK not significantly elevated, does not support rhabdomyolysis. 3.The patient is on Bumex for volume control and anasarca treatment. 4.Sepsis secondary to left lower extremity cellulitis, streptococcal bacteremia. The patient is on antibiotic. He had debridement done today. Workup related to and right-sided cardiac cat heterization will be done by Cardiology when the patient is stable. 5.Bilateral lower extremity edema secondary to lymphedema, cellulitis, and likely pulmonary hyperten she. Recommend further workup by Cardiology. A TTE on October 17 was suboptimal, but showed nor mal left ventricular ejection fraction. 6.Hyponatremia secondary to high ADH state from dyspnea and lower extremity discomfort, pain related to high ADH state. Continue pain medication. Continue BiPAP. Avoid salt tablets. Continue to paige id sodium contained IV fluids. 7.Hypokalemia. Potassium replacement as needed. Monitor magnesium level and treat hypomagnesemia. 8.Vitamin D deficiency. Cholecalciferol 5000 international units per day was started. 9.Secondary hyperparathyroidism due to vitamin D deficiency. EB/MODL Voice ID: [id number] Report ID: [id number]
[2023-10-25] MEDS ORDERED: VANCOMYCIN 2 GM in NA CHLORIDE 0.9% 500 ML IVPB SCH (02:00)
[2023-10-25] MEDS: ALBUMIN HUMAN 25% 50 ML IV SCH ×2 (06:36→18:00)
[2023-10-25] MEDS ORDERED: HYDROCORTISONE SUC 100 MG INJ IV ONE (07:30)
[2023-10-25] MEDS: VITAMIN D 5,000 UNIT CAP PO SCH (08:13)
[2023-10-25] MEDS: BUMETANIDE 1 MG/4 ML VIAL IV SCH ×2 (08:13→20:49)
[2023-10-25] MEDS: acetaZOLAMIDE 250 MG TAB PO SCH ×2 (08:13→20:48)
[2023-10-25] MEDS: FLUCONAZOLE 100 MG TAB PO SCH (08:14)
[2023-10-25] MEDS: SPIRONOLACTONE 25 MG TABLET PO SCH ×2 (08:14→20:48)
[2023-10-25] MEDS: CALCIUM CARBONATE CHEW 500MG TAB PO PRN (08:14)
[2023-10-25] MEDS: NYSTATIN 500,000 UNIT/5 ML UDC PO SCH ×4 (08:14→20:49)
[2023-10-25] MEDS: POLYETHYL GLY 3350 17 GM/DOSE PO SCH (09:00)
[2023-10-25] MEDS: SILVER SULFADIAZINE 1% 50 GM TOP SCH ×2 (09:00→21:00)
[2023-10-25] MEDS: SOD FERRIC GLUC COMPLX/SUCROSE 125 MG in NA CHLORIDE 0.9% 100 ML IV SCH (09:00)
[2023-10-25] MEDS: DULERA 200/5 (MOMETASONE/FORMOTEROL) INHALER IH SCH ×2 (09:00→21:00)
--- NOTE | 2023-10-25 12:41 | P.PN ---
Subjective Date of Service: 10/25/23 Chief Complaint: Respiratory failure on BiPAP morbid obesity Subjective: Improving (Patient is doing well s/p I&D of lower extremity abscesses legs are wrapped tolerating BiPAP) Review of Systems General: Weakness Respiratory: Shortness of Breath Physical Examination - Vital Signs Temperature: 98.9 F Blood Pressure: 143/63 Pulse: 88 Respirations: 17 Pulse Ox (%): 96 - Physical Exam General: Alert, Oriented x2 Respiratory: Clear to auscultation bilaterally Cardiovascular: Edema Assessment And Plan - Current Problems (Diagnosis) (1) Morbid (severe) obesity with alveolar hypoventilation Current Visit: Yes Status: Acute Plan: Noninvasive ventilator improved check if they can deliver it to the hospital he may be a few days prior before his discharge room air arterial glasses blood gases order evaluate for home oxygen (2) Cellulitis and abscess of left lower extremity Current Visit: Yes Status: Acute Plan: S/p I&D White count is declining wound cultures are pending add clindamycin
--- NOTE | 2023-10-25 15:01 | P.PN ---
Date of Service: 10/25/23 Chief Complaint: Respiratory failure on BiPAP morbid obesity Subjective: Patient seen and examined at bedside. In no apparent distress at this time. Reported red man syndrome / rash following vancomycin infusion prior to debridement yesterday. Physical Examination Temp Pulse Resp BP Pulse Ox 98.9 F 88 17 143/63 H 96 10/25/23 12:44 10/25/23 12:44 10/25/23 12:44 10/25/23 12:44 10/25/23 12:44 General: Alert, In no apparent distress, Oriented x3, Obese HEENT: Atraumatic, Normocephalic. Dry mucous membranes. Respiratory: Normal air movement, Diminished Cardiovascular: Regular rate/rhythm. Edema/lymphedema BLE. Gastrointestinal: Normal bowel sounds, No tenderness Integumentary: BLE dressings clean dry and intact at this time. Generalized rash (following administration of vancomycin IV yesterday) Neurological: Normal speech, Normal tone, Normal affect Laboratory Data - Reviewed Microbiology Data - Reviewed Imagings Data: - Reviewed Medication list: - Reviewed Assessment and plan Problem List Sepsis secondary to BLE cellulitis Bacteremia due to Streptococcus pyogenes Bilateral Lower Extremity Lymphedema Anasarca Morbid Obesity Sepsis secondary to BLE Cellulitis Streptococcus pyogenes Bacteremia - Leukocytosis improving (WBC 21.3 -> 18.9 -> 16 -> 14.8) - Afebrile >72 hours - Blood cultures 10/12: Streptococcus pyogenes - Repeat blood culture 10/14: No growth to date - Currently on Ceftriaxone IV (started 10/14) Concern for abscess, worsening erythema and purulent drainage. Unable to obtain CT due to weight/size limit. Ultrasound ordered by attending, pending. General surgery consulted. Fluconazole also started 10/20 due to worsening pain of left 1st toe; onychomycosis noted. - Ultrasound left lower extremity 10/20: "Cellulitis left lateral ankle. A discrete well-formed abscess is not visualized" - 10/24: underwent Excisional subcutaneous debridement of necrotic infected ulcers by Dr. Osborne --> Left proximal leg about 15 x 10 x 2 cm. Left distal leg 10 x 10 x 2 cm. Left thigh medially 5 x 5 x 2 cm. Right distal leg lateral 4 x 4 x 2 cm. - Vancomycin discontinued 10/24 following rash development/red man syndrome. Acute respiratory failure Obstructive sleep apnea - Pulmonology following Recommendations - strep Bacteremia: Continue antibiotic therapy x 14 days (10/14 to 10/27). Currently on day 12 of 14 on Rocephin. - Cellulitis/necrotic ulcers: Continue Rocephin for now. Follow up with wound culture results from debridement. Will adjust antibiotics as appropriate. - Continue wound care per Dr. Osborne. - Monitor WBC and fever trends - Keep legs elevated Case discussed with Vlad Asencio
[2023-10-25] MEDS: CEFTRIAXONE 2,000 MG in NA CHLORIDE 0.9% 50 ML IV SCH (16:00)
[2023-10-25 16:11] LABS: Blood O2 Saturation 82.5 % (92-98.5)
--- NOTE | 2023-10-25 17:42 | P.PN ---
Subjective Date of Service: 10/25/23 Chief Complaint: Respiratory failure on BiPAP morbid obesity No recorded fever. No major changes from yesterday. He has been tolerating 3 L oxygen by nasal cannula. Patient developed a erythematous rash on his chest and face and relates the incidence to IV vancomycin. Physical Examination - Vital Signs Temperature: 98.6 F Blood Pressure: 147/65 Pulse: 90 Respirations: 17 Pulse Ox (%): 96 Assessment And Plan - Plan Physical Exam: GEN: Alert, oriented, NAD, morbidly obese. CV: Regular rate and rhythm, 3+ bilateral lower extremity edema , L>R Pulm:diminished at bases b/l, +expiratory wheezes ABD: Soft, nontender, nondistended Integumentary: Bilateral lower extremity with lymphadenopathy. Bilateral lower extremity xerosis and lichenification, onychomycosis of left great toe. Neuro: Normal speech, normal affect Thomas in place vitals reviewed Problem List: Sepsis secondary to LLE cellulitis with suspected abscess Streptococcus pyogenes bacteremia Anasarca Bilateral lower extremity lymphedema Bilateral venous stasis dermatitis and venous stasis ulcer Small thrombus at IV site, superficial Onychomycosis Oral Thrush Acute respiratory failure with hypoxia and hypercapnia suspected undiagnosed obstructive sleep apnea Hyponatremia MARTINA, resolved Iron deficiency anemia Morbid obesity h/o GERD Functional constipation Tobacco use Sepsis secondary to LLE cellulitis with suspected abscess Streptococcus pyogenes bacteremia Anasarca Bilateral lower extremity lymphedema Bilateral venous stasis dermatitis and venous stasis ulcer blood cx (10/12): Streptococcus Pyogenes blood cx (10/14): No growth ID is following. Continue IV Rocephin Vanc added 10/20 given concern for abscess, worsening erythema and purulent drainage. Patient developed erythematous rash I suspect this is related to vancomycin. Vancomycin discontinued and patient given Benadryl and IV hydrocortisone. Unable to obtain CT to further eval possible abscess due to weight/size limit. USG showed no abscess. Patient seen by Dr. Osborne and is status post excisional debridement of necrotic wounds on bilateral lower extremities. Continue local wound care Rinse with vashe then apply silvadene topical. Wrap with kerlix then KRYSTYNA wrap. Daily and PRN if soiled. May also apply abd pad if large amount of drainage. Keep legs elevated echo(10/17): 65% EF, very poor study with poor windows; continue PO spironolactone, bumex s/p multiple doses of tolvaptan. thomas placed 10/14 for accurate i/o's Low-salt diet, fluid restriction, daily weights advised. Small thrombus at IV site, superficial 10/22 - reports for ~1 minute yesterday middle finger was stuck in flexed position. +mild swelling of right extremity Right upper extremity u/s (10/22): Small amount of thrombus seen in the antecubital fossa cephalic vein. Elsewhere, no significant upper extremity DVT is present IV removed and reinserted in new location 10/22; no further episodes. Continue to monitor for worsening signs. Onychomycosis Oral Thrush continue diflucan PO (10/20-) continue Nystatin, added 10/21 Acute respiratory failure with hypoxia / hypercapnia suspected undiagnosed obstructive sleep apnea reports never had sleep study / no CPAP at home sleeping habits consistent with obstructive sleep apnea Pulm consulted 10/18 continue diamox; switched to PO 10/19 NIV ordered and approved; to be provided upon discharge Increase activity as tolerated; BiPAP at night as tolerated Hyponatremia MARTINA, resolved Hypervolemic hyponatremia Nephrology is following previously on Lasix gtt; continue spironolactone Patient given multiple doses of tolvaptan given anasarca with hyponatremia. Hyponatremia significantly improved. Continue to monitor monitor renal function / BMP Iron deficiency anemia iron studies 10/18 consistent with iron deficiency anemia Completed IV iron therapy. Morbid obesity. Continue PT. Activity as tolerated h/o GERD. PRN Tums Functional constipation. continue Laxatives and stool softeners Tobacco use. Cessation advised. Placed on nicoderm patch Code: Full Dispo: Home with HH pending performance status improvement.
--- NOTE | 2023-10-25 18:19 | PN ---
Date of Progress Note: 10/25/2023 Subjective: The patient was admitted to the hospital with anasarca, lymphedema, and cellulitis. The patient had acute kidney injury. Patient underwent debridement. Patient off BiPAP. Objective: Vital Signs: When I saw the patient, blood pressure 143/63, pulse of 88. Chest: No additional sound. Patient morbidly obese, could not appreciate any additional sound. Abdomen: Morbidly obese. No organomegaly appreciated. Extremities: Lymphedema, bilateral with venous stasis and erythema, bilateral. Laboratory Data: Hemoglobin 9.7, sodium 134, potassium 4.2, bicarb 31, BUN 21, creatinine 0.7, calcium 8.8. Current Medications: The patient on, it includes: 1. Ceftriaxone. 2. Spironolactone. 3. Acetazolamide. 4. Bumex 1 mg b.i.d. Assessment And Plan: 1. Acute kidney injury secondary to poor perfusion acute tubular necrosis, still on the overvolume side. Kidney function normalized. I am going to continue current diuresis. We will monitor the patient. 2. Cellulitis secondary to lymphedema. We will continue with the diuresis. Continue current antibiotic dose appropriate. 3. Hyponatremia, recovered. Continue diuresis, mostly dilutional. 4. Hypokalemia, resolved. Continue spironolactone. time spend exam the patient face to face reviewing data lab and radiology placing order , discussing with the patient , discussing with the steam presser including hospitalist and nursing staff >35 min REMI Voice ID: [id number] Report ID: [id number] MALIK
[2023-10-25] MEDS: ACETAMINOPHEN 325 MG TABLET PO PRN (21:33)
[2023-10-26] MEDS ORDERED: DIPHENHYDRAMINE 25 MG TAB/CAP PO PRN (05:05)
[2023-10-26] MEDS: ALBUMIN HUMAN 25% 50 ML IV SCH ×2 (06:00→17:07)
[2023-10-26] MEDS: SPIRONOLACTONE 25 MG TABLET PO SCH ×2 (08:33→21:05)
[2023-10-26] MEDS: BUMETANIDE 1 MG/4 ML VIAL IV SCH ×2 (08:33→21:06)
[2023-10-26] MEDS: acetaZOLAMIDE 250 MG TAB PO SCH ×2 (08:33→21:06)
[2023-10-26] MEDS: NYSTATIN 500,000 UNIT/5 ML UDC PO SCH ×4 (08:34→21:06)
[2023-10-26] MEDS: FLUCONAZOLE 100 MG TAB PO SCH (08:34)
[2023-10-26] MEDS: POLYETHYL GLY 3350 17 GM/DOSE PO SCH (08:34)
[2023-10-26] MEDS: VITAMIN D 5,000 UNIT CAP PO SCH (08:34)
[2023-10-26] MEDS: SILVER SULFADIAZINE 1% 50 GM TOP SCH ×2 (08:35→21:07)
[2023-10-26] MEDS: DULERA 200/5 (MOMETASONE/FORMOTEROL) INHALER IH SCH ×2 (08:35→21:07)
[2023-10-26 09:24] LABS: Absolute Lymphocytes (CBC) 1.9 K/uL (0.7-4.9); Hematocrit 32.4 % (39.6-49.0); Lymphocytes % 18.9 % (15.3-44.8); MCV 75.5 fL (80-100); MPV 7.6 fL (7.6-11.3); Platelets 483 thou/uL (152-406); RBC Red Blood Cell Count 4.29 M/uL (4.33-5.43)
[2023-10-26 09:52] LABS: Potassium 3.6 mEq/L (3.5-5.1)
--- NOTE | 2023-10-26 10:10 | P.PN ---
Date of Service: 10/26/23 Chief Complaint: Respiratory failure on BiPAP morbid obesity Subjective: Patient seen and examined at bedside. In no apparent distress. Resting comfortably in bed. + generalized rash / itching following vancomycin infusion Physical Examination Temp Pulse Resp BP Pulse Ox 97.7 F 86 18 140/62 88 L 10/26/23 04:00 10/26/23 04:00 10/26/23 04:00 10/26/23 04:00 10/26/23 04:00 General: Alert, In no apparent distress, Oriented x3, Obese HEENT: Atraumatic, Normocephalic. Respiratory: Normal air movement, Diminished Cardiovascular: Regular rate/rhythm. Edema/lymphedema BLE. Gastrointestinal: Normal bowel sounds, No tenderness Integumentary: BLE dressings clean dry and intact at this time. Generalized rash (following administration of vancomycin IV) Neurological: Normal speech, Normal tone, Normal affect Laboratory Data - Reviewed Microbiology Data - Reviewed Imagings Data: - Reviewed Medication list: - Reviewed Assessment and plan Problem List Sepsis secondary to BLE cellulitis Bacteremia due to Streptococcus pyogenes Bilateral Lower Extremity Lymphedema Anasarca Morbid Obesity Streptococcus pyogenes Bacteremia secondary to Cellulitis BLE - Blood cultures 10/12: Streptococcus pyogenes - Repeat blood culture 10/14: No growth to date - Currently on Ceftriaxone IV (started 10/14) Sepsis secondary to BLE Cellulitis - There was concern for abscess due to worsening erythema and purulent drainage. Unable to obtain CT due to weight/size limit. --> Started on Vancomycin and Fluconazole 10/20 - 10/24: underwent Excisional subcutaneous debridement of necrotic infected ulcers by Dr. Osborne -> Left proximal leg about 15 x 10 x 2 cm. Left distal leg 10 x 10 x 2 cm. Left thigh medially 5 x 5 x 2 cm. Right distal leg lateral 4 x 4 x 2 cm. - Vancomycin discontinued 10/24 following rash development/red man syndrome. - On Ceftriaxone (10/14-) and Fluconazole (10/20-) Leukocytosis improving (16 -> 14.8 -> 10.2) Afebrile Acute respiratory failure Obstructive sleep apnea - Pulmonology following Recommendations - Cellulitis/necrotic ulcers s/p debridement: Continue Rocephin for now. Follow up with wound culture results from debridement 10/24. Will adjust antibiotics as appropriate. - strep Bacteremia: Continue antibiotic therapy x 14 days (10/14 to 10/27). - Currently on day 13 of 14 on Rocephin. - Continue wound care per Dr. Osborne. - Monitor WBC and fever trends - Keep legs elevated Case discussed with Vlad Asencio
--- NOTE | 2023-10-26 13:31 | PN ---
Date of Progress Note: 10/26/2023 Subjective: The patient was admitted to the hospital with acute kidney injury, anasarca, poor perfusion ATN secondary to sepsis secondary to cellulitis. Objective: Vital Signs: When I saw the patient, blood pressure 140/62, pulse of 97, afebrile. Chest: Decreased entry bilateral base. General: Patient morbidly obese. Abdomen: Soft. Patient morbidly obese, could not appreciate any organomegaly. Extremities: Lymphedema, bilateral, with erythema, bilateral. Dressing on the left foot and leg. Neuro: Patient bed bound. No focality. Skin: Macular rash all over his body, more prominent on the upper side. Laboratory Data: Hemoglobin 10, WBC 10.2, sodium 134, potassium 3.6, bicarb 28, BUN 20, creatinine 0.7, calcium 9.5. Current Medications: The patient on, it includes: 1. Nystatin. 2. Ceftriaxone. 3. Clindamycin. 4. Diphenhydramine. 5. Albumin. 6. Calcium carbonate. 7. Spironolactone 50 b.i.d. 8. Bumex 1 mg b.i.d. 9. Acetazolamide. Assessment And Plan: 1. Acute kidney injury secondary to toxic acute tubular necrosis, poor perfusion acute tubular necrosis, recovered, resolved. 2. Anasarca, lymphedema. We will continue diuresis. Patient responded very well to current diuresis dose. Has negative balance of 4 L. We will continue to monitor. Patient lost 13 pounds over the last 5 days. Anasarca secondary to lymphedema, bedbound. 3. Hypokalemia. Continue spironolactone p.r.n. supplement. 4. Hyponatremia, dilutional. Continue current treatment. time spend exam the patient face to face reviewing data lab and radiology placing order , discussing with the patient , discussing with the steam fitter including hospitalist and nursing staff >35 min RICHIE/KESHIA Voice ID: [id number] Report ID: [id number] MTDD
[2023-10-26] MEDS: HYDROCODONE/APAP 5/325 MG TAB PO PRN (15:28)
[2023-10-26] MEDS: CEFTRIAXONE 2,000 MG in NA CHLORIDE 0.9% 50 ML IV SCH (15:28)
[2023-10-26] MEDS: DAPTOmycin 500 MG in NA CHLORIDE 0.9% 100 ML IVPB SCH (16:00)
--- NOTE | 2023-10-26 17:39 | P.PN ---
Subjective Date of Service: 10/26/23 Chief Complaint: Respiratory failure on BiPAP morbid obesity No recorded fever. Patient reports erythematous rash on his chest became worse and now involves his arms and thighs and back. He has been tolerating 3 L oxygen by nasal cannula and uses BiPAP at night. Physical Examination - Vital Signs Temperature: 99.3 F Blood Pressure: 155/64 Pulse: 89 Respirations: 18 Pulse Ox (%): 97 Assessment And Plan - Plan Physical Exam: GEN: Alert, oriented, NAD, morbidly obese. CV: Regular rate and rhythm, 3+ bilateral lower extremity edema , L>R Pulm:diminished at bases b/l, +expiratory wheezes ABD: Soft, nontender, nondistended Integumentary: Bilateral lower extremity with lymphadenopathy. Bilateral lower extremity xerosis and lichenification, onychomycosis of left great toe. Diffuse erythematous papular rash. Neuro: Normal speech, normal affect Thomas in place vitals reviewed Problem List: Sepsis secondary to LLE cellulitis with suspected abscess Streptococcus pyogenes bacteremia Anasarca Bilateral lower extremity lymphedema Bilateral venous stasis dermatitis and venous stasis ulcer Small thrombus at IV site, superficial Onychomycosis Oral Thrush Acute respiratory failure with hypoxia and hypercapnia suspected undiagnosed obstructive sleep apnea Hyponatremia MARTINA, resolved Iron deficiency anemia Morbid obesity h/o GERD Functional constipation Tobacco use Sepsis secondary to LLE cellulitis with suspected abscess Streptococcus pyogenes bacteremia Anasarca Bilateral lower extremity lymphedema Bilateral venous stasis dermatitis and venous stasis ulcer blood cx (10/12): Streptococcus Pyogenes blood cx (10/14): No growth ID is following. Continue IV Rocephin Vanc added 10/20 given concern for abscess, worsening erythema and purulent drainage. Patient developed erythematous rash I suspect this is related to vancomycin. Vancomycin discontinued and replaced with daptomycin. Patient given Benadryl and IV hydrocortisone. Patient seen by Dr. Osborne and is status post excisional debridement of necrotic wounds on bilateral lower extremities. Continue local wound care Rinse with vashe then apply silvadene topical. Wrap with kerlix then KRYSTYNA wrap. Daily and PRN if soiled. May also apply abd pad if large amount of drainage. Keep legs elevated echo(10/17): 65% EF, very poor study with poor windows; continue PO spironolactone, bumex s/p multiple doses of tolvaptan. thomas placed 10/14 for accurate i/o's Low-salt diet, fluid restriction, daily weights advised. Small thrombus at IV site, superficial 10/22 - reports for ~1 minute yesterday middle finger was stuck in flexed position. +mild swelling of right extremity Right upper extremity u/s (10/22): Small amount of thrombus seen in the antecubital fossa cephalic vein. Elsewhere, no significant upper extremity DVT is present IV removed and reinserted in new location 10/22; no further episodes. Continue to monitor for worsening signs. Onychomycosis Oral Thrush continue diflucan PO (10/20-) continue Nystatin, added 10/21 Acute respiratory failure with hypoxia / hypercapnia suspected undiagnosed obstructive sleep apnea reports never had sleep study and no CPAP at home sleeping pattern consistent with obstructive sleep apnea Pulm consulted 10/18 continue diamox; switched to PO 10/19 NIV ordered and approved; to be provided upon discharge Increase activity as tolerated; BiPAP at night as tolerated Hyponatremia MARTINA, resolved Hypervolemic hyponatremia Nephrology is following previously on Lasix gtt; continue spironolactone Patient given multiple doses of tolvaptan given anasarca with hyponatremia. Hyponatremia significantly improved. Continue to monitor monitor renal function / BMP Iron deficiency anemia iron studies 10/18 consistent with iron deficiency anemia Completed IV iron therapy. Morbid obesity. Continue PT. Activity as tolerated h/o GERD. PRN Tums Functional constipation. continue Laxatives and stool softeners Tobacco use. Cessation advised. Placed on nicoderm patch. Drug reaction Suspected to be related to vancomycin. Vancomycin replaced with daptomycin. Continue Rocephin Clindamycin discontinued. Code: Full Dispo: Recommending LTAC.
[2023-10-26] MEDS: HYDROCORTISONE SUC 100 MG INJ IV SCH (21:05)
[2023-10-26] MEDS: ACETAMINOPHEN 325 MG TABLET PO PRN (21:22)
[2023-10-27] MEDS: ALBUMIN HUMAN 25% 50 ML IV SCH ×2 (06:45→16:55)
[2023-10-27 07:37] LABS: Potassium 4.2 mEq/L (3.5-5.1)
--- NOTE | 2023-10-27 08:17 | P.PN ---
Date of Service: 10/27/23 Chief Complaint: Respiratory failure on BiPAP morbid obesity Subjective: In no apparent distress. + blurry vision + generalized rash (red man syndrome during vancomycin infusion) + left lower extremity pain Patient's mother at bedside. Physical Examination Temp Pulse Resp BP Pulse Ox 97.2 F 89 18 141/63 H 97 10/27/23 04:00 10/27/23 04:00 10/27/23 04:00 10/27/23 04:00 10/27/23 04:00 General: Alert, In no apparent distress, Oriented x3, Obese HEENT: Atraumatic, Normocephalic. Respiratory: Normal air movement, Diminished Cardiovascular: Regular rate/rhythm. Edema/lymphedema BLE. Gastrointestinal: Normal bowel sounds, No tenderness Integumentary: BLE dressings clean dry and intact at this time. Generalized rash (following administration of vancomycin IV) Neurological: Normal speech, Normal tone, Normal affect Laboratory Data - Reviewed Microbiology Data - Reviewed Imagings Data: - Reviewed Medication list: - Reviewed Assessment and plan Problem List Sepsis secondary to BLE cellulitis Bacteremia due to Streptococcus pyogenes Bilateral Lower Extremity Lymphedema Anasarca Morbid Obesity Streptococcus pyogenes Bacteremia secondary to Cellulitis BLE - Blood cultures 10/12: Streptococcus pyogenes - Repeat blood culture 10/14: No growth to date - Currently on Ceftriaxone IV day 14 of 14 Sepsis secondary to BLE Cellulitis - There was concern for abscess due to worsening erythema and purulent drainage. Unable to obtain CT due to weight/size limit. 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 Osborne -> Left proximal leg about 15 x 10 x 2 cm. Left distal leg 10 x 10 x 2 cm. Left thigh medially 5 x 5 x 2 cm. Right distal leg lateral 4 x 4 x 2 cm. - Wound culture from debridement 10/24: Pending - On Ceftriaxone (10/14-), Fluconazole (10/20-) and Daptomycin (10/26-) Leukocytosis improving Afebrile Acute respiratory failure Obstructive sleep apnea - Pulmonology following Recommendations - Cellulitis/necrotic ulcers s/p debridement: Continue Rocephin and Daptomycin for now. Monitor CK levels at least weekly while on daptomycin. - Follow up with wound culture results from debridement 10/24. Will adjust antibiotics as appropriate. - strep Bacteremia: Continue Rocephin for 14 days (10/14 to 10/27). Currently on day 14 of 14 - Continue wound care per Dr. Osborne. - Monitor WBC and fever trends - Continue diuretics Plan of care discussed with patient and his mother at bedside. Case discussed with Vlad Asencio
[2023-10-27] MEDS: FLUCONAZOLE 100 MG TAB PO SCH (08:56)
[2023-10-27] MEDS: BUMETANIDE 1 MG/4 ML VIAL IV SCH (08:56)
[2023-10-27] MEDS: VITAMIN D 5,000 UNIT CAP PO SCH (08:56)
[2023-10-27] MEDS: NYSTATIN 500,000 UNIT/5 ML UDC PO SCH ×2 (08:56→12:27)
[2023-10-27] MEDS: DULERA 200/5 (MOMETASONE/FORMOTEROL) INHALER IH SCH ×2 (08:57→20:54)
[2023-10-27] MEDS: acetaZOLAMIDE 250 MG TAB PO SCH ×2 (08:57→20:50)
[2023-10-27] MEDS: SPIRONOLACTONE 25 MG TABLET PO SCH ×2 (08:57→20:50)
[2023-10-27] MEDS: POLYETHYL GLY 3350 17 GM/DOSE PO SCH (08:57)
[2023-10-27] MEDS: HYDROCORTISONE SUC 100 MG INJ IV SCH ×2 (08:58→20:52)
[2023-10-27] MEDS: SILVER SULFADIAZINE 1% 50 GM TOP SCH ×2 (08:58→20:53)
[2023-10-27] MEDS: CEFTRIAXONE 2,000 MG in NA CHLORIDE 0.9% 50 ML IV SCH (16:03)
[2023-10-27] MEDS: HYDROCODONE/APAP 5/325 MG TAB PO PRN (16:03)
--- NOTE | 2023-10-27 16:26 | P.PN ---
Subjective Date of Service: 10/27/23 Chief Complaint: Respiratory failure on BiPAP morbid obesity No fever. Patient's erythematous rash is improving He is stable on 3 L oxygen by nasal cannula and uses BiPAP at night. Bilateral lower extremity edema continues to improve. Patient has significant diuresis with the current diuretics. Physical Examination - Vital Signs Temperature: 97.4 F Blood Pressure: 161/67 Pulse: 92 Respirations: 18 Pulse Ox (%): 98 Assessment And Plan - Plan Physical Exam: GEN: Alert, oriented, NAD, morbidly obese. CV: Regular rate and rhythm, 3+ bilateral lower extremity edema , L>R Pulm:diminished at bases b/l, +expiratory wheezes ABD: Soft, nontender, nondistended Integumentary: Bilateral lower extremity with lymphadenopathy. Bilateral lower extremity xerosis and lichenification, onychomycosis of left great toe. Diffuse erythematous papular rash improving. Neuro: No focal motor deficit. Thomas in place vitals reviewed Problem List: Sepsis secondary to LLE cellulitis with suspected abscess Streptococcus pyogenes bacteremia Anasarca Bilateral lower extremity lymphedema Bilateral venous stasis dermatitis and venous stasis ulcer Small thrombus at IV site, superficial Onychomycosis Oral Thrush Acute respiratory failure with hypoxia and hypercapnia suspected undiagnosed obstructive sleep apnea Hyponatremia MARTINA, resolved Iron deficiency anemia Morbid obesity h/o GERD Functional constipation Tobacco use Sepsis secondary to LLE cellulitis with suspected abscess Streptococcus pyogenes bacteremia Anasarca Bilateral lower extremity lymphedema Bilateral venous stasis dermatitis and venous stasis ulcer Contraction alkalosis blood cx (10/12): Streptococcus Pyogenes blood cx (10/14): No growth ID is following. Continue IV Rocephin Vanc added 10/20 given concern for abscess, worsening erythema and purulent drainage. Patient developed erythematous rash which is suspected to be related to vancomycin. Vancomycin discontinued and replaced with daptomycin. Patient given Benadryl and IV hydrocortisone. Patient seen by Dr. Osborne and is status post excisional debridement of necrotic wounds on bilateral lower extremities. Continue local wound care Rinse with vashe then apply silvadene topical. Wrap with kerlix then KRYSTYNA wrap. Daily and PRN if soiled. May also apply abd pad if large amount of drainage. Keep legs elevated echo(10/17): 65% EF, very poor study with poor windows; continue PO hannah nolactone, bumex s/p multiple doses of tolvaptan. thomas placed 10/14 for accurate i/o's Low-salt diet, fluid restriction, daily weights advised. On IV Lasix and Diamox. Serum bicarb level improved. Small thrombus at IV site, superficial 10/22 - reports for ~1 minute yesterday middle finger was stuck in flexed position. +mild swelling of right extremity Right upper extremity u/s (10/22): Small amount of thrombus seen in the antecubital fossa cephalic vein. Elsewhere, no significant upper extremity DVT is present IV removed and reinserted in new location 10/22; no further episodes. Continue to monitor for worsening signs. Onychomycosis Oral Thrush continue diflucan PO (10/20-) continue Nystatin, added 10/21 Acute respiratory failure with hypoxia / hypercapnia suspected undiagnosed obstructive sleep apnea reports never had sleep study and no CPAP at home sleeping pattern consistent with obstructive sleep apnea Pulm consulted 10/18 continue diamox; switched to PO 10/19 NIV ordered and approved; to be provided upon discharge Increase activity as tolerated; BiPAP at night as tolerated Hyponatremia MARTINA, resolved Hypervolemic hyponatremia Nephrology is following previously on Lasix gtt; continue spironolactone Patient given multiple doses of tolvaptan given anasarca with hyponatremia. Hyponatremia significantly improved. Continue to monitor monitor renal function / BMP Iron deficiency anemia iron studies 10/18 consistent with iron deficiency anemia Completed IV iron therapy. Morbid obesity. Continue PT. Activity as tolerated h/o GERD. PRN Tums Functional constipation. continue Laxatives and stool softeners Tobacco use. Cessation advised. Placed on nicoderm patch. Drug reaction Suspected to be related to vancomycin. Vancomycin replaced with daptomycin. Continue Rocephin Clindamycin discontinued. Code: Full Dispo: Social service is assisting with LTAC placement.
[2023-10-27] MEDS: DAPTOmycin 500 MG in NA CHLORIDE 0.9% 100 ML IVPB SCH (17:45)
--- NOTE | 2023-10-27 20:39 | PN ---
Date of Progress Note: 10/27/2023 Subjective: The patient was admitted to the hospital with sepsis, cellulitis, acute kidney injury. Patient had lymphedema, electrolyte imbalance. The patient has been diuresed very well. Objective: Vital Signs: Blood pressure 161/67, pulse of 92, afebrile. Chest: Decreased entry bilateral base. Heart: S1, S2. Regular. Abdomen: Morbidly obese. Could not appreciate any organomegaly. Extremities: Lymphedema, bilateral. Dressing on both legs. Skin: Erythema macular rash on upper part of the body. Neurologic: Alert. No focality. Patient bedbound. Laboratory Data: Hemoglobin 10. Sodium 135, potassium 4.2, bicarb 30, BUN 21, creatinine 0.6, calcium 9.6. Current Medications: The patient on, it includes: 1. Ceftriaxone. 2. Daptomycin. 3. Fluconazole. 4. Calcium carbonate. 5. Lasix. Assessment And Plan: 1. Acute kidney injury secondary to cardiorenal, toxic acute tubular necrosis. Continue to recover. Still on the overvolume side. I am going to go ahead and increase the Lasix to t.i.d. and we will follow up. 2. Hypertension, not controlled. We will go ahead and add beta-deni and we will follow up. We will increase Lasix. 3. Anasarca, lymphedema. Increase Lasix. Continue current treatment. 4. Cellulitis with sepsis. Continue current antibiotic. Follow up with the Primary. 5. Deconditioning. Continue PT, OT. time spend exam the patient face to face reviewing data lab and radiology placing order , discussing with the patient , discussing with the warehouse team leader including hospitalist and nursing staff >35 min REMI Voice ID: [id number] Report ID: [id number] MALIK
[2023-10-27] MEDS: FUROSEMIDE 40 MG/4 ML VIAL IV SCH (20:52)
[2023-10-27] MEDS: carvediloL 6.25 MG TAB PO SCH (20:52)
[2023-10-27] MEDS ORDERED: FUROSEMIDE 40 MG/4 ML VIAL IV SCH (21:00)
[2023-10-28] MEDS: ALBUMIN HUMAN 25% 50 ML IV SCH ×2 (05:53→17:20)
[2023-10-28 06:19] VITALS: BMI 77.6
--- NOTE | 2023-10-28 08:01 | P.PN ---
Date of Service: 10/28/23 Chief Complaint: Respiratory failure on BiPAP morbid obesity Subjective: Patient seen and examined at bedside. In no apparent distress at this time. Patient's mother in room. + blurry vision Physical Examination Temp Pulse Resp BP Pulse Ox 97.5 F 77 20 144/66 H 91 10/28/23 04:00 10/28/23 04:00 10/28/23 04:00 10/28/23 04:00 10/28/23 04:00 General: Alert, In no apparent distress, Oriented x3, Obese HEENT: Atraumatic, Normocephalic. Respiratory: Normal air movement, Diminished Cardiovascular: Regular rate/rhythm. Edema/lymphedema BLE. Gastrointestinal: Normal bowel sounds, No tenderness Integumentary: BLE dressings clean dry and intact at this time. Generalized rash (following administration of vancomycin IV) Neurological: Normal speech, Normal tone, Normal affect Laboratory Data - Reviewed Microbiology Data - Reviewed Imagings Data: - Reviewed Medication list: - Reviewed Assessment and plan Problem List Sepsis secondary to BLE cellulitis Bacteremia due to Streptococcus pyogenes Bilateral Lower Extremity Lymphedema Anasarca Morbid Obesity Streptococcus pyogenes Bacteremia secondary to Cellulitis BLE - Blood cultures 10/12: Streptococcus pyogenes - Repeat blood culture 10/14: No growth to date - Completed 14 days of Ceftriaxone (10/14-10/27) Sepsis secondary to BLE Cellulitis - There was concern for abscess due to worsening erythema and purulent drainage. Unable to obtain CT due to weight/size limit. 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 Osborne -> Left proximal leg about 15 x 10 x 2 cm. Left distal leg 10 x 10 x 2 cm. Left thigh medially 5 x 5 x 2 cm. Right distal leg lateral 4 x 4 x 2 cm. - Currently on Fluconazole (10/20-) and Daptomycin (10/26-) - - Wound culture from debridement 10/24: Pseudomonas aeruginosa Leukocytosis improving Afebrile Acute respiratory failure Obstructive sleep apnea - Pulmonology following Recommendations - Wound cultures from debridement growing pseudomonas. Started on Cefepime IV 10/28 - Continue wound care per Dr. Osborne. - Monitor WBC and fever trends - Continue diuretics Case discussed with Vlad Asencio
[2023-10-28 08:14] LABS: Hematocrit 34.5 % (39.6-49.0); Lymphocytes % 27.6 % (15.3-44.8); MCV 76.7 fL (80-100); MPV 7.7 fL (7.6-11.3); Platelets 450 thou/uL (152-406); RBC Red Blood Cell Count 4.49 M/uL (4.33-5.43)
[2023-10-28 08:24] LABS: Bilirubin Total 0.2 mg/dL (0.2-1.0); Potassium 4.2 mEq/L (3.5-5.1); Protein, Total 8.8 g/dL (6.4-8.2)
[2023-10-28] MEDS ORDERED: CEFEPIME 2 GM in NA CHLORIDE 0.9% 100 ML IV SCH (09:00)
[2023-10-28 09:58] LABS: Anisocytosis 1+; Blood Morphology Comment NOTED (NOT SEEN); Platelet Estimate ADEQ
[2023-10-28 10:03] LABS: White Blood Cell Scan OK (OK)
[2023-10-28] MEDS: SPIRONOLACTONE 25 MG TABLET PO SCH ×2 (10:22→20:45)
[2023-10-28] MEDS: FUROSEMIDE 40 MG/4 ML VIAL IV SCH ×3 (10:22→20:46)
[2023-10-28] MEDS: acetaZOLAMIDE 250 MG TAB PO SCH ×2 (10:23→20:46)
[2023-10-28] MEDS: FLUCONAZOLE 100 MG TAB PO SCH (10:23)
[2023-10-28] MEDS: carvediloL 6.25 MG TAB PO SCH ×2 (10:23→20:45)
[2023-10-28] MEDS: VITAMIN D 5,000 UNIT CAP PO SCH (10:23)
[2023-10-28] MEDS: DULERA 200/5 (MOMETASONE/FORMOTEROL) INHALER IH SCH ×2 (10:25→20:45)
[2023-10-28] MEDS: POLYETHYL GLY 3350 17 GM/DOSE PO SCH (10:26)
[2023-10-28] MEDS: SILVER SULFADIAZINE 1% 50 GM TOP SCH ×2 (10:26→20:46)
[2023-10-28] MEDS: HYDROCODONE/APAP 5/325 MG TAB PO PRN (15:29)
--- NOTE | 2023-10-28 15:35 | P.PN ---
Subjective Date of Service: 10/28/23 Chief Complaint: Respiratory failure on BiPAP morbid obesity No fever. Patient's erythematous rash significantly improved. He was seen propped up and eating breakfast during my interaction today. He has been using BiPAP at night. Bilateral lower extremity edema continues to improve. Physical Examination - Vital Signs Temperature: 97.2 F Blood Pressure: 132/63 Pulse: 77 Respirations: 18 Pulse Ox (%): 97 Assessment And Plan - Plan Physical Exam: GEN: Alert, oriented, NAD, morbidly obese. CV: Regular rate and rhythm, bilateral lower extremity edema improved. Pulm:diminished at bases b/l, no wheezes ABD: Soft, nontender, nondistended Integumentary: Bilateral lower extremity with lymphadenopathy. Bilateral lower extremity xerosis and lichenification, onychomycosis of left great toe. Skin: Diffuse erythematous papular rash improving. Neuro: No focal motor deficit. Thomas in place vitals reviewed Problem List: Sepsis secondary to LLE cellulitis with suspected abscess Streptococcus pyogenes bacteremia Anasarca Bilateral lower extremity lymphedema Bilateral venous stasis dermatitis and venous stasis ulcer Small thrombus at IV site, superficial Onychomycosis Oral Thrush Acute respiratory failure with hypoxia and hypercapnia suspected undiagnosed obstructive sleep apnea Hyponatremia MARTINA, resolved Iron deficiency anemia Morbid obesity h/o GERD Functional constipation Tobacco use Plan: Sepsis secondary to LLE cellulitis with suspected abscess Streptococcus pyogenes bacteremia Anasarca Bilateral lower extremity lymphedema Bilateral venous stasis dermatitis and venous stasis ulcer Contraction alkalosis blood cx (10/12): Streptococcus Pyogenes blood cx (10/14): No growth Wound culture: Pseudomonas ID is following. IV Rocephin changed to IV cefepime Vanc added 10/20 given concern for abscess, worsening erythema and purulent drainage. Patient developed erythematous rash which is suspected to be related to vancomycin. Vancomycin discontinued and replaced with daptomycin. Patient given Benadryl and IV hydrocortisone. Patient seen by Dr. Osborne and is status post excisional debridement of necrotic wounds on bilateral lower extremities. Continue local wound care Rinse with vashe then apply silvadene topical. Wrap with kerlix then KRYSTYNA wrap. Daily and PRN if soiled. May also apply abd pad if large amount of drainage. Keep legs elevated echo(10/17): 65% EF, very poor study with poor windows; continue PO spironolactone, bumex s/p multiple doses of tolvaptan. thomas placed 10/14 for accurate i/o's Low-salt diet, fluid restriction, daily weights advised. On IV Lasix and Diamox. Serum bicarb level improved. Small thrombus at IV site, superficial 10/22 - reports for ~1 minute yesterday middle finger was stuck in flexed position. +mild swelling of right extremity Right upper extremity u/s (10/22): Small amount of thrombus seen in the antecubital fossa cephalic vein. Elsewhere, no significant upper extremity DVT is present IV removed and reinserted in new location 10/22; no further episodes. Continue to monitor for worsening signs. Onychomycosis Oral Thrush continue diflucan PO (10/20-) continue Nystatin. Patient to complete 14 days of treatment. Acute respiratory failure with hypoxia / hypercapnia suspected undiagnosed obstructive sleep apnea reports never had sleep study and no CPAP at home sleeping pattern consistent with obstructive sleep apnea Pulm consulted 10/18 continue diamox; switched to PO 10/19 NIV ordered and approved; to be provided upon discharge Increase activity as tolerated; BiPAP at night as tolerated Hyponatremia MARTINA, resolved Hypervolemic hyponatremia. Sodium level significantly improved. Nephrology is following previously on Lasix gtt; continue spironolactone Patient given multiple doses of tolvaptan given anasarca with hyponatremia. Hyponatremia significantly improved. Continue to monitor monitor renal function / BMP Iron deficiency anemia iron studies 10/18 consistent with iron deficiency anemia Completed IV iron therapy. Morbid obesity. Continue PT. Activity as tolerated h/o GERD. PRN Tums Functional constipation. continue Laxatives and stool softeners Tobacco use. Cessation advised. Placed on nicoderm patch. Drug reaction Suspected to be related to vancomycin. Vancomycin replaced with daptomycin. Continue Rocephin Clindamycin discontinued. Code: Full Dispo: Social service is assisting with LTAC placement.
--- NOTE | 2023-10-28 17:10 | PN ---
Date of Progress Note: 10/28/2023 Diagnosis: Bilateral lower extremities lymphedema with nonhealing ulcers, venous stasis ulcers. Subjective: Patient is doing well, better. He feels better. We have been removing some of the flui d of his body and the shrinkage of the leg is already helping to heal his wounds. There is no fever. No shortness of breath. No chest pain. Objective: Chest: Clear. Abdomen: Soft and depressible. Extremities: Good capillary refill. Plan: Continue medical care. We are also going to order a Dietitian consult. The patient's mother had few questions about how we can identify some opportunities to control his diet in a way that mini mized fluid retention. BOYD/MODL Voice ID: [id number] Report ID: [id number]
[2023-10-28] MEDS: CEFEPIME 2 GM in NA CHLORIDE 0.9% 100 ML IV SCH (17:20)
[2023-10-28] MEDS: DAPTOmycin 500 MG in NA CHLORIDE 0.9% 100 ML IVPB SCH (17:20)
--- NOTE | 2023-10-28 17:28 | P.PN ---
Subjective Date of Service: 10/28/23 Chief Complaint: Respiratory failure on BiPAP morbid obesity Subjective: No new changes Physical Examination - Vital Signs Temperature: 97.8 F Blood Pressure: 140/76 Pulse: 81 Respirations: 17 Pulse Ox (%): 96 - Physical Exam General: Other (appears as his stated age) HEENT: Atraumatic, Normocephalic Neck: Supple Respiratory: Other (symmetric chest expansion) Cardiovascular: No rubs, No murmurs Gastrointestinal: Soft and benign, No guarding Musculoskeletal: Swelling (both lower extremities) Integumentary: Skin breakdown (both legs) Neurological: Normal speech, Normal tone Urinary: Other (no bladder distention) External genitalia: Deferred Rectal: Deferred Assessment And Plan - Plan # MARTINA 2/2 sepsis/ATN SCr 1.4 on adm, improved to 0.6-0.7 Urinalysi +pyuria, no proteinuria, no hematuria +Mild proteinuria 1.0g on random UPCR CPK not sig elevated, no rhabdo [place] po fluid intake > 2L/d Cont diuretics same dose # Sepsis 2/2 LLE cellulitis +Strep bacteremia Received Abx BLE wound care & multilayer compression therapy # Chronic BLE edema likely 2/2 obesity-related R-sided cardiac + pulmo issues + BLE lymphatic/venous stasis + dependent edema, aggravated by hypolabuminemia BNP sig elevated BLE multilayer compression Cont diuretics Encouraged weight loss & bariatric surg outpt consult # Acute respi failure O2 suppl prn Unable to get chest CT done d/t body habitus BNP sig elevated TTE on 10/17 suboptimal but showed normal LVEF 65% Cont diuretics # Hyponatremia 2/2 high ADH state from dyspnea & BLE discomfort + renal dysfxn Improved, serum Na 135 [place] by mouth fluid intake Advised on adequate by mouth solid food intake Avoid salt tabs, avoid Na-containing IVF K repletion prn to keep serum K at 4.0 or higher Avoid hypoMg # Vitamin D deficiency Cholecalciferol 5000 international units by mouth daily # Secondary hyperparathyroidism D3 repletion as above # Anemia Monitor CBC
[2023-10-29] MEDS: CEFEPIME 2 GM in NA CHLORIDE 0.9% 100 ML IV SCH ×3 (01:03→16:51)
[2023-10-29] MEDS: ALBUMIN HUMAN 25% 50 ML IV SCH ×2 (06:23→16:51)
[2023-10-29] MEDS: acetaZOLAMIDE 250 MG TAB PO SCH ×2 (09:01→21:21)
[2023-10-29] MEDS: FUROSEMIDE 40 MG/4 ML VIAL IV SCH ×3 (09:01→21:21)
[2023-10-29] MEDS: carvediloL 6.25 MG TAB PO SCH ×2 (09:01→21:20)
[2023-10-29] MEDS: SPIRONOLACTONE 25 MG TABLET PO SCH ×2 (09:01→21:21)
[2023-10-29] MEDS: POLYETHYL GLY 3350 17 GM/DOSE PO SCH (09:01)
[2023-10-29] MEDS: FLUCONAZOLE 100 MG TAB PO SCH (09:02)
[2023-10-29] MEDS: SILVER SULFADIAZINE 1% 50 GM TOP SCH ×2 (09:02→21:00)
[2023-10-29] MEDS: VITAMIN D 5,000 UNIT CAP PO SCH (09:02)
[2023-10-29] MEDS: DULERA 200/5 (MOMETASONE/FORMOTEROL) INHALER IH SCH ×2 (09:03→21:22)
--- NOTE | 2023-10-29 14:25 | P.PN ---
Subjective Date of Service: 10/29/23 Chief Complaint: Respiratory failure on BiPAP morbid obesity 38M w/ PMHx of morbid obesity, chronic cig smoker, chronic BLE edema, & GERD, who p/w increased BLE edema & erythema, admitted for sepsis 2/2 LLE cellulitis. He is referred to Nephrology for MARTINA. SC 1.4 on adm, improved to 1.1 today. Today no overnight events labs reveiwed cont Diuretics Physical exam General: Awake, NAD , obese HEENT: Atraumatic, Normocephalic Neck: Supple, no elevated JVD Respiratory: CTAB Cardiovascular: No rubs, No murmurs Gastrointestinal: Soft and benign, Non-distended Ext : edema , leg dressing A/P # MARTINA 2/2 sepsis/ATN resolved SCr 1.4 on adm, Cont lasix # Sepsis 2/2 LLE cellulitis +Strep bacteremia Cont ABx BLE wound care # Chronic BLE edema likely 2/2 obesity-related R-sided cardiac + BLE lymphatic/venous stasis + hypolabuminemia BLE multilayer compression Cont diuretics #Hypokalemia resolved replace as needed Monitor Mg level # hyprvolemic Hyponatremia resolved cont to monitor # Vitamin D deficiency Start cholecalciferol 5000 international units by mouth daily # Anemia Monitor CBC Physical Examination - Vital Signs Temperature: 97.3 F Blood Pressure: 107/58 Pulse: 78 Respirations: 20 Pulse Ox (%): 96
[2023-10-29] MEDS: HYDROCODONE/APAP 5/325 MG TAB PO PRN (15:08)
--- NOTE | 2023-10-29 16:12 | P.PN ---
Subjective Date of Service: 10/29/23 Chief Complaint: Respiratory failure on BiPAP morbid obesity No fever. Patient's erythematous rash significantly improved. Patient functional status appears to be improving with therapy. He has been using BiPAP at night. He reported asynchrony in his breathing with the BiPAP last night. Bilateral lower extremity edema continues to improve. Physical Examination - Vital Signs Temperature: 97.3 F Blood Pressure: 107/58 Pulse: 78 Respirations: 16 Pulse Ox (%): 93 Assessment And Plan - Plan Physical Exam: GEN: Alert, oriented, NAD, morbidly obese. CV: Regular rate and rhythm, bilateral lower extremity edema improved. Pulm:diminished at bases b/l, no wheezes ABD: Soft, nontender, nondistended Integumentary: Bilateral lower extremity with lymphadenopathy. Bilateral lower extremity xerosis and lichenification, onychomycosis of left great toe. Skin: Diffuse erythematous papular rash improving. Neuro: No focal motor deficit. Thomas in place vitals reviewed Problem List: Sepsis secondary to LLE cellulitis with suspected abscess Streptococcus pyogenes bacteremia Anasarca Bilateral lower extremity lymphedema Bilateral venous stasis dermatitis and venous stasis ulcer Small thrombus at IV site, superficial Onychomycosis Oral Thrush Acute respiratory failure with hypoxia and hypercapnia suspected undiagnosed obstructive sleep apnea Hyponatremia MARTINA, resolved Iron deficiency anemia Morbid obesity h/o GERD Functional constipation Tobacco use Plan: Sepsis secondary to LLE cellulitis with suspected abscess Streptococcus pyogenes bacteremia Anasarca Bilateral lower extremity lymphedema Bilateral venous stasis dermatitis and venous stasis ulcer Contraction alkalosis blood cx (10/12): Streptococcus Pyogenes blood cx (10/14): No growth Wound culture: Pseudomonas ID is following. Continue IV cefepime Vanc added 10/20 given concern for abscess, worsening erythema and purulent drainage. Patient developed erythematous rash which is suspected to be related to vancomycin. Vancomycin discontinued and replaced with daptomycin. Patient given Benadryl and IV hydrocortisone. Patient seen by Dr. Osborne and is status post excisional debridement of necrotic wounds on bilateral lower extremities. Continue local wound care Rinse with vashe then apply silvadene topical. Wrap with kerlix then KRYSTYNA wrap. Daily and PRN if soiled. May also apply abd pad if large amount of drainage. Keep legs elevated echo(10/17): 65% EF, very poor study with poor windows; continue PO spironolactone, bumex s/p multiple doses of tolvaptan. thomas placed 10/14 for accurate i/o's Low-salt diet, fluid restriction, daily weights advised. On IV Lasix and Diamox. Serum bicarb level improved. Small thrombus at IV site, superficial 10/22 - reports for ~1 minute yesterday middle finger was stuck in flexed position. +mild swelling of right extremity Right upper extremity u/s (10/22): Small amount of thrombus seen in the antecubital fossa cephalic vein. Elsewhere, no significant upper extremity DVT is present IV removed and reinserted in new location 10/22; no further episodes. Continue to monitor for worsening signs. Onychomycosis Oral Thrush continue diflucan PO (10/20-) continue Nystatin. Patient to complete 14 days of treatment. Acute respiratory failure with hypoxia / hypercapnia suspected undiagnosed obstructive sleep apnea reports never had sleep study and no CPAP at home sleeping pattern consistent with obstructive sleep apnea Pulm consulted 10/18 continue diamox; switched to PO 10/19 NIV ordered and approved; to be provided upon discharge Increase activity as tolerated; BiPAP at night as tolerated. Respiratory therapy to adjust BiPAP settings to improve synchrony. Hyponatremia MARTINA, resolved Hypervolemic hyponatremia. Sodium level significantly improved. Nephrology is following previously on Lasix gtt; currently on IV Lasix. Continue spironolactone Patient given multiple doses of tolvaptan given anasarca with hyponatremia. Hyponatremia significantly improved. Continue to monitor monitor renal function / BMP Iron deficiency anemia iron studies 10/18 consistent with iron deficiency anemia Completed IV iron therapy. Morbid obesity. Continue PT. Activity as tolerated h/o GERD. PRN Tums Functional constipation. continue Laxatives and stool softeners Tobacco use. Cessation advised. Placed on nicoderm patch. Drug reaction Suspected to be related to vancomycin. Vancomycin replaced with daptomycin. Continue IV cefepime. Clindamycin discontinued. Code: Full Dispo: Social service is assisting with LTAC placement.
[2023-10-29] MEDS: DAPTOmycin 500 MG in NA CHLORIDE 0.9% 100 ML IVPB SCH (16:51)
[2023-10-30] MEDS: CEFEPIME 2 GM in NA CHLORIDE 0.9% 100 ML IV SCH ×2 (00:26→14:26)
[2023-10-30] MEDS: ALBUMIN HUMAN 25% 50 ML IV SCH ×2 (06:03→16:41)
[2023-10-30] MEDS: carvediloL 6.25 MG TAB PO SCH ×2 (10:09→21:34)
[2023-10-30] MEDS: FLUCONAZOLE 100 MG TAB PO SCH (10:09)
[2023-10-30] MEDS: acetaZOLAMIDE 250 MG TAB PO SCH ×2 (10:09→21:34)
[2023-10-30] MEDS: SPIRONOLACTONE 25 MG TABLET PO SCH ×2 (10:10→21:34)
[2023-10-30] MEDS: VITAMIN D 5,000 UNIT CAP PO SCH (10:10)
[2023-10-30] MEDS: POLYETHYL GLY 3350 17 GM/DOSE PO SCH (10:11)
[2023-10-30] MEDS: FUROSEMIDE 40 MG/4 ML VIAL IV SCH ×3 (10:11→21:35)
[2023-10-30] MEDS: SILVER SULFADIAZINE 1% 50 GM TOP SCH ×2 (10:18→21:00)
[2023-10-30] MEDS: DULERA 200/5 (MOMETASONE/FORMOTEROL) INHALER IH SCH ×2 (10:18→21:36)
--- NOTE | 2023-10-30 13:28 | P.PN ---
Subjective Date of Service: 10/30/23 Chief Complaint: Respiratory failure on BiPAP morbid obesity 38M w/ PMHx of morbid obesity, chronic cig smoker, chronic BLE edema, & GERD, who p/w increased BLE edema & erythema, admitted for sepsis 2/2 LLE cellulitis. He is referred to Nephrology for MARTINA. SC 1.4 on adm, improved to 1.1 today. Today no overnight events labs reviewed cont Diuretics , consider to switch to po lasix next week Physical exam General: Awake, NAD , obese HEENT: Atraumatic, Normocephalic Neck: Supple, no elevated JVD Respiratory: CTAB Cardiovascular: No rubs, No murmurs Gastrointestinal: Soft and benign, Non-distended Ext : edema , leg dressing A/P # MARTINA 2/2 sepsis/ATN resolved SCr 1.4 on adm, Cont lasix # Sepsis 2/2 LLE cellulitis +Strep bacteremia Cont ABx BLE wound care # Chronic BLE edema likely 2/2 obesity-related R-sided cardiac + BLE lymphatic/venous stasis + hypolabuminemia BLE multilayer compression Cont diuretics #Hypokalemia resolved replace as needed Monitor Mg level # hyprvolemic Hyponatremia resolved cont to monitor # Vitamin D deficiency Start cholecalciferol 5000 international units by mouth daily # Anemia Monitor CBC Physical Examination - Vital Signs Temperature: 97.8 F Blood Pressure: 150/81 Pulse: 74 Respirations: 19 Pulse Ox (%): 90
--- NOTE | 2023-10-30 16:33 | P.PN ---
Subjective Date of Service: 10/30/23 Chief Complaint: Respiratory failure on BiPAP morbid obesity No fever. No new complaint. He has been using BiPAP at night. Bilateral lower extremity edema continues to improve. Physical Examination - Vital Signs Temperature: 97.8 F Blood Pressure: 150/81 Pulse: 74 Respirations: 19 Pulse Ox (%): 90 Assessment And Plan - Plan Physical Exam: GEN: Alert, oriented, NAD, morbidly obese. CV: Regular rate and rhythm, bilateral lower extremity edema improved. Pulm:diminished at bases b/l, no wheezes ABD: Soft, nontender, nondistended Integumentary: Bilateral lower extremity with lymphadenopathy. Bilateral lower extremity xerosis and lichenification, onychomycosis of left great toe. Skin: Diffuse erythematous papular rash improved Neuro: No focal motor deficit. Thomas in place vitals reviewed Problem List: Sepsis secondary to LLE cellulitis with suspected abscess Streptococcus pyogenes bacteremia Anasarca Bilateral lower extremity lymphedema Bilateral venous stasis dermatitis and venous stasis ulcer Small thrombus at IV site, superficial Onychomycosis Oral Thrush Acute respiratory failure with hypoxia and hypercapnia suspected undiagnosed obstructive sleep apnea Hyponatremia MARTINA, resolved Iron deficiency anemia Morbid obesity h/o GERD Functional constipation Tobacco use Plan: Sepsis secondary to LLE cellulitis with suspected abscess Streptococcus pyogenes bacteremia Anasarca Bilateral lower extremity lymphedema Bilateral venous stasis dermatitis and venous stasis ulcer Contraction alkalosis blood cx (10/12): Streptococcus Pyogenes blood cx (10/14): No growth Wound culture: Pseudomonas ID is following. Continue IV cefepime and daptomycin. Vanc added 10/20 given concern for abscess, worsening erythema and purulent drainage. Patient developed erythematous rash which is suspected to be related to vancomycin. Vancomycin discontinued and replaced with daptomycin. Patient seen by Dr. Osborne and is status post excisional debridement of necrotic wounds on bilateral lower extremities. Continue local wound care Keep legs elevated echo(10/17): 65% EF, very poor study with poor windows; continue PO spironolactone, bumex s/p multiple doses of tolvaptan. thomas placed 10/14 for accurate i/o's Low-salt diet, fluid restriction, daily weights advised. On IV Lasix and Diamox. Serum bicarb level improved. Small thrombus at IV site, superficial 10/22 - reports for ~1 minute yesterday middle finger was stuck in flexed position. +mild swelling of right extremity Right upper extremity u/s (10/22): Small amount of thrombus seen in the antecubital fossa cephalic vein. Elsewhere, no significant upper extremity DVT is present IV removed and reinserted in new location 10/22; no further episodes. Onychomycosis Oral Thrush continue diflucan PO (10/20-) continue Nystatin. Patient to complete 14 days of treatment. Acute respiratory failure with hypoxia / hypercapnia suspected undiagnosed obstructive sleep apnea reports never had sleep study and no CPAP at home sleeping pattern consistent with obstructive sleep apnea Pulm consulted 10/18 continue diamox; switched to PO 10/19 NIV ordered and approved; to be provided upon discharge Increase activity as tolerated; BiPAP at night as tolerated. Respiratory therapy to adjust BiPAP settings to improve synchrony. Hyponatremia MARTINA, resolved Hypervolemic hyponatremia. Sodium level significantly improved. Nephrology is following previously on Lasix gtt; currently on IV Lasix. Continue spironolactone Patient given multiple doses of tolvaptan given anasarca with hyponatremia. Hyponatremia significantly improved. Continue to monitor monitor renal function / BMP Iron deficiency anemia iron studies 10/18 consistent with iron deficiency anemia Completed IV iron therapy. Morbid obesity. Continue PT. Activity as tolerated h/o GERD. PRN Tums Functional constipation. continue Laxatives and stool softeners Tobacco use. Cessation advised. Placed on nicoderm patch. Drug reaction Suspected to be related to vancomycin. Vancomycin replaced with daptomycin. Continue IV cefepime. Clindamycin discontinued. Code: Full Dispo: Social service is assisting with LTAC placement.
[2023-10-30] MEDS: DAPTOmycin 500 MG in NA CHLORIDE 0.9% 100 ML IVPB SCH (16:54)
[2023-10-31] MEDS: CEFEPIME 2 GM in NA CHLORIDE 0.9% 100 ML IV SCH ×3 (00:29→17:12)
[2023-10-31] MEDS: ALBUMIN HUMAN 25% 50 ML IV SCH ×2 (06:40→17:13)
[2023-10-31] MEDS: SILVER SULFADIAZINE 1% 50 GM TOP SCH ×2 (09:00→20:33)
--- NOTE | 2023-10-31 09:21 | P.PN ---
Date of Service: 10/31/23 Chief Complaint: Respiratory failure on BiPAP morbid obesity Subjective: Patient seen and examined at bedside. Mother in room. Denies any new or worsening complaints. Rash improving. Blurry vision improving. Physical Examination Temp Pulse Resp BP Pulse Ox 96.7 F L 73 18 136/65 97 10/31/23 04:00 10/31/23 04:00 10/31/23 04:00 10/31/23 04:00 10/31/23 04:00 General: Alert, In no apparent distress, Oriented x3, Obese HEENT: Atraumatic, Normocephalic. Respiratory: Normal air movement, Diminished Cardiovascular: Regular rate/rhythm. Edema/lymphedema BLE. Gastrointestinal: Normal bowel sounds, No tenderness Integumentary: BLE dressings clean dry and intact. Neurological: Normal speech, Normal tone, Normal affect Laboratory Data - Reviewed Microbiology Data - Reviewed Imagings Data: - Reviewed Medication list: - Reviewed Assessment and plan Problem List Sepsis secondary to BLE cellulitis Bacteremia due to Streptococcus pyogenes Bilateral Lower Extremity Lymphedema Anasarca Morbid Obesity Streptococcus pyogenes Bacteremia secondary to Cellulitis BLE - Blood cultures 10/12: Streptococcus pyogenes - Repeat blood culture 10/14: No growth to date - Completed 14 days of Ceftriaxone (10/14-10/27) Sepsis secondary to BLE Cellulitis - There was concern for abscess due to worsening erythema and purulent drainage. Unable to obtain CT due to weight/size limit. 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 Osborne -> Left proximal leg about 15 x 10 x 2 cm. Left distal leg 10 x 10 x 2 cm. Left thigh medially 5 x 5 x 2 cm. Right distal leg lateral 4 x 4 x 2 cm. - Currently on Fluconazole (10/20-) and Daptomycin (10/26-) - - Wound culture from debridement 10/24: Pseudomonas aeruginosa Leukocytosis improving Afebrile Acute respiratory failure Obstructive sleep apnea - Pulmonology following Recommendations - Wound cultures from debridement growing pseudomonas. Started on Cefepime IV, continue for 14 days (10/28-11/11) - Continue wound care per Dr. Osborne. - Monitor WBC and fever trends - Continue diuretics Pending outpatient placement for continued IV antibiotics and wound care. SS/CM following. Case discussed with Vlad Asencio
[2023-10-31] MEDS: VITAMIN D 5,000 UNIT CAP PO SCH (09:26)
[2023-10-31] MEDS: FLUCONAZOLE 100 MG TAB PO SCH (09:26)
[2023-10-31] MEDS: carvediloL 6.25 MG TAB PO SCH ×2 (09:27→20:33)
[2023-10-31] MEDS: FUROSEMIDE 40 MG/4 ML VIAL IV SCH ×3 (09:27→20:33)
[2023-10-31] MEDS: SPIRONOLACTONE 25 MG TABLET PO SCH ×2 (09:27→20:32)
[2023-10-31] MEDS: DULERA 200/5 (MOMETASONE/FORMOTEROL) INHALER IH SCH ×2 (09:28→20:32)
[2023-10-31] MEDS: HYDROCODONE/APAP 5/325 MG TAB PO PRN ×2 (09:34→17:13)
[2023-10-31] MEDS: acetaZOLAMIDE 250 MG TAB PO SCH ×2 (09:34→20:32)
[2023-10-31] MEDS: POLYETHYL GLY 3350 17 GM/DOSE PO SCH (09:55)
[2023-10-31] MEDS ORDERED: CEFEPIME 2 GM in NA CHLORIDE 0.9% 100 ML IV ONE (10:00)
[2023-10-31 10:23] VITALS: O2SAT 91
--- NOTE | 2023-10-31 13:21 | P.DS ---
Admission Date: 10/12/23 Discharge Date: 10/31/23 [facility] Discharge Condition: FAIR Reason for Admission: Respiratory failure on BiPAP morbid obesity Brief History of Present Illness: Ray Wells is a 38-year-old male with past medical history lymphadenopathy, GERD, smoking abuse, morbid obesity who presents to the ED with complaints of increased lower extremity edema overnight. Patient reports on Tuesday not feeling well and assuming it was bad pizza he ate. He continued to not feel well the last few days, was able to drink but not eat. This morning his lower extremities increased in size and redness. Redness was noted earlier this week but has increased since Tuesday. Ray's mother usually cares for his legs using Neosporin and wrapping with an Marty bandage daily. Initial vital BP 127 / 95; Pulse 120; Resp 19; Temp 98.6; Pulse Ox 99% on R/A. Chest x-ray reports "The lungs are clear. Decreased penetration somewhat limits evaluation. No pneumothorax or effusion. The cardiomediastinal contours are unremarkable". Significant labs WBC 19, lactic acid 2.8, sodium 129, potassium 3.7, serum glucose 102, BNP 1669. On examination left anterior tibia is weeping with serous fluid, erythema, edema, and warmth noted. He is SOB today, which is not usual for him. Ray will be admitted to hospitalist service for further evaluation and treatment of sepsis secondary to cellulitis of the left lower extremity. Hospital Course: Diagnosis Sepsis secondary to LLE cellulitis with suspected abscess Streptococcus pyogenes bacteremia Anasarca Bilateral lower extremity lymphedema Bilateral venous stasis dermatitis and venous stasis ulcer Small thrombus at IV site, superficial Onychomycosis Oral Thrush Acute respiratory failure with hypoxia and hypercapnia suspected undiagnosed obstructive sleep apnea Hyponatremia MARTINA, resolved Iron deficiency anemia Morbid obesity h/o GERD Functional constipation Tobacco use Patient admitted to the medical floor and the following medical problems addressed: Sepsis secondary to LLE cellulitis with suspected abscess Streptococcus pyogenes bacteremia Anasarca Bilateral lower extremity lymphedema Bilateral venous stasis dermatitis and venous stasis ulcer Contraction alkalosis blood cx (10/12): Streptococcus Pyogenes blood cx (10/14): No growth Wound culture: Pseudomonas Patient seen and evaluated by infectious disease. He was treated with IV cefepime, clindamycin and vancomycin initially, transitioned to IV Rocephin. Patient seen by Dr. Osborne and is status post excisional debridement of multiple necrotic wounds on bilateral lower extremities. Vancomycin added again 10/20 given concern for abscess, worsening erythema and purulent drainage. Patient developed erythematous rash which is suspected to be related to vancomycin. Vancomycin discontinued and replaced with daptomycin. Patient given Benadryl and IV hydrocortisone for allergic reaction. Local wound care done: Rinse with vashe then apply silvadene topical. Wrap with kerlix then MARTY wrap. Daily and PRN if soiled. May also apply abd pad if large amount of drainage. Keep legs elevated echo(10/17): 65% EF, very poor study with poor windows; continue PO spironolactone, bumex s/p multiple doses of tolvaptan for hyponatremia and edema. thomas placed 10/14 for accurate i/o's Low-salt diet, fluid restriction, daily weights recommended. He had contraction alkalosis which improved with addition of Diamox to IV Lasix Small thrombus at IV site, superficial 10/22 - reports for ~1 minute yesterday middle finger was stuck in flexed position. +mild swelling of right extremity Right upper extremity u/s (10/22): Small amount of thrombus seen in the antecubital fossa cephalic vein. Elsewhere, no significant upper extremity DVT is present IV removed and reinserted in new location 10/22; no further episodes. Continue to monitor for worsening signs. Onychomycosis Oral Thrush Managed with Diflucan and nystatin Patient to complete 14 days of treatment. Acute respiratory failure with hypoxia / hypercapnia suspected undiagnosed obstructive sleep apnea/morbid obesity reports never had sleep study and no CPAP at home sleeping pattern consistent with obstructive sleep apnea Pulm consulted 10/18 Patient was on diamox for elevated CO2. NIV ordered and approved; to be provided upon discharge Patient used BiPAP during sleep. Current settings 14/, RR 14. Patient has been requiring oxygen. There is a concern for pulmonary embolism but he cannot undergo CT scan due to his age and weight. Will empirically treat for PE with Eliquis. Hyponatremia MARTINA, resolved Hypervolemic hyponatremia. Sodium level significantly improved. Nephrology is following previously on Lasix gtt; transition to IV Lasix 40 mg every 8 hours. Also placed on Aldactone. Patient given multiple doses of tolvaptan given anasarca with hyponatremia. Hyponatremia significantly improved. Iron deficiency anemia iron studies 10/18 consistent with iron deficiency anemia He completed IV iron therapy. Morbid obesity. Continue PT. Activity as tolerated h/o GERD. PRN Tums Functional constipation. continue Laxatives and stool softeners Tobacco use. Cessation advised. Placed on nicoderm patch. Drug reaction Suspected to be related to vancomycin. Vancomycin replaced with daptomycin. Continued IV cefepime. Clindamycin discontinued. Vital Signs/Physical Exam: Temp Pulse Resp BP Pulse Ox 96.9 F 70 18 146/82 H 99 10/31/23 08:00 10/31/23 09:27 10/31/23 10:34 10/31/23 09:27 10/31/23 10:34 General: Alert, In no apparent distress, Obese (Morbidly obese) HEENT: Mucous membr. moist/pink Neck: JVD not distended Respiratory: Diminished (Bilateral) Cardiovascular: Regular rate/rhythm, Normal S1 S2, Edema (Bilateral) Gastrointestinal: Normal bowel sounds, Soft and benign, Non-distended, Other (Will be excepted.) Musculoskeletal: Swelling (Bilateral lower extremities) Integumentary: Other (Multiple debrided ulcers on bilateral lower extremities) Neurological: Normal speech, Normal strength at 5/5 x4 extr, Other (Globally weak) Lymphatics: Other (Bilateral lower extremity lymphedema) Urinary: Thomas catheter Laboratory Data at Discharge: WBC 10.70 thou/uL (4.3-10.9) 10/28/23 07:31 Hgb 10.6 g/dL (13.6-17.9) L 10/28/23 07:31 Hct 34.5 % (39.6-49.0) L 10/28/23 07:31 Plt Count 450 thou/uL (152-406) H 10/28/23 07:31 PT 13.1 SECONDS (9.5-12.5) H 10/18/23 03:22 INR 1.19 10/18/23 03:22 APTT 37.6 SECONDS (24.3-36.9) H 10/18/23 03:22 Sodium 135 mEq/L (136-145) L 10/28/23 07:31 Potassium 4.2 mEq/L (3.5-5.1) 10/28/23 07:31 BUN 26 mg/dL (7-18) H 10/28/23 07:31 Creatinine 0.68 mg/dL (0.70-1.30) L 10/28/23 07:31 Glucose 109 mg/dL (74-106) H 10/28/23 07:31 Phosphorus 4.5 mg/dL (2.5-4.9) 10/23/23 03:50 Magnesium 2.7 mg/dL (1.6-2.4) H 10/24/23 17:19 Total Bilirubin 0.2 mg/dL (0.2-1.0) 10/28/23 07:31 AST 36 U/L (15-37) 10/28/23 07:31 ALT 114 U/L (16-61) H 10/28/23 07:31 Alkaline Phosphatase 71 U/L (45-117) 10/28/23 07:31 Triglycerides 288 mg/dL (<150) H 10/13/23 03:28 Cholesterol 81 mg/dL (<200) 10/13/23 03:28 HDL Cholesterol 10 mg/dL (40-60) L 10/13/23 03:28 Cholesterol/HDL Ratio 8.10 10/13/23 03:28 Home Medications: Acetaminophen [Tylenol*] 650 mg PO Q4HP PRN tab 10/31/23 Apixaban [Eliquis] 5 mg PO BID #74 tab 10/31/23 Calcium Carbonate [Tums Regular*] 500 mg PO QID PRN tab 10/31/23 Cefepime [Maxipime*] 2 gm IV Q8H #30 vial 10/31/23 Cholecalciferol (Vitamin D3) [Vitamin D 5,000 IU Cap*] 5,000 unit PO DAILY cap 10/31/23 DAPTOmycin [Daptomycin] 500 mg IV DAILY #10 vial 10/31/23 Fluconazole 200 mg PO DAILY #7 tab 10/31/23 Furosemide [Lasix 40 MG INJ*] 40 mg IV TID vial 10/31/23 Hydrocodone 5/APAP 325 [Graham 5/325*] 1 tab PO Q6H PRN tab 10/31/23 Mometasone/Formoterol [Dulera 200 Mcg/5 Mcg Inhaler] 2 puff IH BID inhaler 10/31/23 Nicotine [Nicoderm*] 14 mg TD DAILY PRN 10/31/23 Polyethyl Gly 3350 [Glycolax*] 17 gm PO DAILY udbot 10/31/23 Silver Sulfadiazine Crm [Silvadene*] 1 appl TOP BID tube 10/31/23 Spironolactone [Aldactone*] 50 mg PO BID tab 10/31/23 acetaZOLAMIDE [Diamox*] 250 mg PO BID tab 10/31/23 carvediloL [Coreg*] 6.25 mg PO BID tab 10/31/23 New Medications: DAPTOmycin [Daptomycin] 500 mg IV DAILY #10 vial Apixaban [Eliquis] 5 mg PO BID #74 tab Fluconazole 200 mg PO DAILY #7 tab Cefepime [Maxipime*] 2 gm IV Q8H #30 vial Physician Discharge Instructions: Wound care: Rinse with vashe then apply silvadene topical. Wrap with kerlix then MARTY wrap. Daily and PRN if soiled. May also apply abd pad if large amount of drainage. Keep legs elevated. Diet: AHA Activity: Fall precautions Followup: NONE,NONE [Primary Care Provider] - Time spent managing pt's care (in minutes): 40
[2023-10-31] MEDS: DAPTOmycin 500 MG in NA CHLORIDE 0.9% 100 ML IVPB SCH (17:12)
[2023-10-31 17:24] VITALS: TEMP 97.4
[2023-10-31 20:33] VITALS: BP 153/71
--- NOTE | 2023-10-31 23:47 | PN ---
Date of Progress Note: 10/31/2023 Chief Complaint: Respiratory failure on BiPAP, extremity edema, lymphedema, acute kidney injury seco ndary to sepsis and ATN. Subjective: The patient is on diuretic to control, anasarca. He developed sepsis due to left lower extremity cellulitis and was found to have streptococcal bacteremia, received antibiotics, and had wo und care as well as debridement done during this admission. Review of Systems: Denies chest pain, palpitation. Physical Examination: Lungs: Diminished breath sounds at the bases. Heart: S1, S2. Abdomen: Soft. Extremities: Edema present in both legs. Dressing in place over the lower extremities. Assessment And Plan: 1.Acute kidney injury secondary to sepsis and acute tubular necrosis. Serum creatinine level on adm ission was 1.4 and improved to 0.6 to 0.7. Continue to monitor renal function. Urinalysis showed py uria with no proteinuria and no hematuria, there is mild proteinuria present and on random UPCR, urin e [id number] ratio showed significant proteinuria 1.0 g per 24 hours. CPK is not elevated and there is no evidence of rhabdomyolysis. Continue p.o. fluid intake and low-sodium diet to contr ol fluid overload. 2.Sepsis secondary to cellulitis, streptococcal bacteremia. The patient received antibiotics and he had wound care and he had multilayer compression therapy. 3.Venostasis and lymphedema, hypoalbuminemia. BNP is elevated. The patient will continue diuretics for volume control. The patient was instructed to follow up with Bariatric Surgery Team for possibl e consultation, weight loss. 4.Acute respiratory failure, on O2 supplementation as needed. The patient had a TAM on September h, which showed left ventricular ejection fraction of 65%. Plan is to continue diuretic to prevent f luid overload. 5.Hyponatremia secondary to high ADH state from dyspnea, lower extremity discomfort, and renal dysfu nction. Sodium level improved to 135. Monitor electrolytes and continue to replace the potassium wh en the patient is on diuretics. 6.Vitamin D deficiency. The patient will continue cholecalciferol 5000 international units by mouth daily. 7.Secondary hyperparathyroidism. Continue treatment with vitamin D. 8.Anemia. Monitor CBC. EB/MODL Voice ID: [id number] Report ID: [id number]
== END 2023-10-31 21:55 | DRG 853 ==
LOC: ER 09:45 → ERHOLD 12:48 → EDBD 12:48 → 4TH 14:41
PROVIDERS: ADMIT Internal Medicine; ATTEND Internal Medicine
PROC: 5A09557 Assistance with Respiratory Ventilation, Greater than 96 Consecutive Hours, Continuous Positive Airway Pressure (ICD-10-PCS; 2023-10-12)
PROC: 5A0955A Assistance with Respiratory Ventilation, Greater than 96 Consecutive Hours, High Flow/Velocity Cannula (ICD-10-PCS; 2023-10-12)
PROC: 0JBP0ZZ Excision of Left Lower Leg Subcutaneous Tissue and Fascia, Open Approach (ICD-10-PCS; 2023-10-24)
PROC: 0JBN0ZZ Excision of Right Lower Leg Subcutaneous Tissue and Fascia, Open Approach (ICD-10-PCS; 2023-10-24)
PROC: 0JBM0ZZ Excision of Left Upper Leg Subcutaneous Tissue and Fascia, Open Approach (ICD-10-PCS; principal; 2023-10-24 12:00)
DX: A40.0 Sepsis due to streptococcus, group A (principal); J96.01 Acute respiratory failure with hypoxia; N17.0 Acute kidney failure with tubular necrosis; J96.02 Acute respiratory failure with hypercapnia; Z68.45 Body mass index [BMI] 70 or greater, adult; E87.1 Hypo-osmolality and hyponatremia; E87.20 Acidosis, unspecified; L03.116 Cellulitis of left lower limb; N25.81 Secondary hyperparathyroidism of renal origin; L97.929 Non-pressure chronic ulcer of unspecified part of left lower leg with unspecified severity; L97.919 Non-pressure chronic ulcer of unspecified part of right lower leg with unspecified severity; E66.2 Morbid (severe) obesity with alveolar hypoventilation; B37.0 Candidal stomatitis; I82.611 Acute embolism and thrombosis of superficial veins of right upper extremity; I96 Gangrene, not elsewhere classified; L03.115 Cellulitis of right lower limb; L02.416 Cutaneous abscess of left lower limb; E87.3 Alkalosis; I87.2 Venous insufficiency (chronic) (peripheral); K21.9 Gastro-esophageal reflux disease without esophagitis; E88.09 Other disorders of plasma-protein metabolism, not elsewhere classified; E55.9 Vitamin D deficiency, unspecified; K59.04 Chronic idiopathic constipation; E87.6 Hypokalemia; B35.1 Tinea unguium; D50.9 Iron deficiency anemia, unspecified; F17.210 Nicotine dependence, cigarettes, uncomplicated; I89.0 Lymphedema, not elsewhere classified; L93.0 Discoid lupus erythematosus; T36.8X5A Adverse effect of other systemic antibiotics, initial encounter; Z79.01 Long term (current) use of anticoagulants; Z79.02 Long term (current) use of antithrombotics/antiplatelets; Z79.899 Other long term (current) drug therapy
CPT/HCPCS: 36415; 36600; 71045; 76881; 80048; 80053; 80061; 80069; 80202; 81001; 82140; 82248; 82306; 82533; 82550; 82570; 82805; 82947; 83540; 83605; 83735; 83880; 83930; 83935; 83970; 84100; 84132; 84145; 84156; 84300; 84439; 84443; 84466; 85025; 85610; 85730; 87040; 87070; 87075; 87077; 87186; 87205; 88304; 93005; 93306; 93971; 94010; 94640; 94660; 94760; 96365; 96367; 96375; 97110; 97116; 97161; 97530; 99285; J0692; J0696; J0878; J1120; J1200; J1644; J1720; J1940; J2001; J2250; J2405; J2543; J2704; J2916; J3010; J3475; J3480; J3535; J7040; J7050; J7120; J7613; J8499; P9047